=== PATIENT | male | born 1940 | race African-American/Black ===

== ENCOUNTER 2023-07-27 19:02 | Inpatient (IN) | payer MEDICARE, SELFPAY ==
--- NOTE | ~2023-07-27 | CT_ITS ---
EXAMINATION: CT HEAD WITHOUT CONTRAST CLINICAL INFORMATION: Visual hallucinations COMPARISON: None available. TECHNIQUE: Contiguous axial imaging was performed from the skull base to vertex without intravenous administration of contrast. This CT examination was performed using dose optimization techniques as appropriate, variously including the following: *Automated exposure control *Adjustment of mA and/or kV according to patient size (this includes techniques or standardized protocols for targeted exams where dose is matched to indication/reason for exam; i.e. extremities or head) *Use of iterative reconstruction technique DLP: 729 mGy-cm FINDINGS: There is no acute intra-axial, extra-axial bleed, masses or midline shift. There is no acute infarction in evolution. There is no edema. The hebert to white matter differentiation is maintained normal. The lateral ventricles are symmetrical but moderately enlarged. Mild periventricular hypodensity seen in both cerebral hemispheres. Bone windows reveal no calvarial abnormality. There is no scalp soft tissue abnormality. There is mild mucoperiosteal thickening right frontal sinus. Rest of the paranasal sinuses are well-aerated. CT/CT head/brain wo IV con IMPRESSION: No acute intracranial process seen.
[2023-07-27 19:33] VITALS: BP 136/62; BP 145/75; PULSE 106; PULSE 97; RESP 17; TEMP 36.8; O2SAT 98; BMI 26.3
--- NOTE | 2023-07-27 21:35 | ED.GENADULT ---
HPI - General Adult General Chief complaint: Altered Mental Status Stated complaint: CC of anxiety and disturbances. No SI/HI Time Seen by Provider: 07/27/23 20:47 Source: patient and EMS Mode of arrival: EMS History of Present Illness HPI narrative: This is an 83-year-old male who arrives via EMS, pleasant and states that he is here because he saw a man in his home who was in a cloud of what appeared to be snow like white pieces and he kept asking him who he was but did not get an answer. Patient became scared and called 911 to have the police come, patient the triage note described it as flying months. Patient states that when the man left this cloud left with him. Patient states that when the police arrived they informed him that the house was empty and no one was there. Patient states he does not understand because he clearly saw the man. He states that this happened 1 time previously. Related Data Allergies Allergy/AdvReac Type Severity Reaction Status Date / Time No Known Allergies Allergy Verified 07/27/23 21:14 Review of Systems Review of Systems: Pertinent positives and negatives as stated in HPI PMFSH Past Medical History Source: nursing notes reviewed Onset Date is defined in the Problem List Problems that require an onset date and time if occurred within 24 hrs of arrival to the ED Aortic Dissection and Rupture; Neurologic impairment; Cardiopulmonary Arrest; Endotracheal Intubation; Insertion or Replacement of Mechanical Circulatory Assist Device Social History Social History Unable to assess alcohol history related to: Unknown Smoked in Last 30 Days: No Advance Directives: No Advance Directives Information Provided: No Physical Exam ED Vital Signs: Vital Signs - 24 hr 07/27/23 19:33 Temperature 98.3 F Pulse Rate 97 Respiratory Rate 17 Blood Pressure 145/75 H Pulse Oximetry 98 Oxygen Delivery Method Room Air BMI result Body Mass Index 26.3 VITAL SIGNS: Reviewed. GENERAL: Well developed, well nourished, in no acute distress. HEAD: Normocephalic/atraumatic EYES: PERRLA, EOMI EARS: Ext canals without abnormality NOSE: Nares patent bilateral OROPHARYNX: no oral lesions noted, posterior pharynx clear NECK: Supple, no adenopathy LUNGS: Normal breath sounds. No adventitious sounds or accessory muscle use. SpO2< 98 > CARDIOVASCULAR: Regular rate and rhythm without noted murmurs, no JVD or lower extremity edema. ABDOMEN: Soft, non-tender, non-distended with bowel sounds. MUSCULOSKELETAL: No tenderness, deformities, or effusions noted on gross inspection. EXTREMITIES: No cyanosis, clubbing or edema. SKIN: Inspection of the skin reveals no rashes NEUROLOGIC: Alert and oriented x 3. Strength and sensation to light touch were grossly intact x 4, no facial asymmetry, no pronator drift, cranial nerves 2-12 are grossly intact. Medical Decision Making Medical Decision Making [facility] Narrative: 83-year-old male with history and clinical presentation, DDX: Metabolic, toxicology, infection, intracranial abnormality for hallucination. I reviewed all investigations and patient does have a leukopenia with a normocytic anemia and no history or clinical findings to suggest acute bleeding, no thrombocytopenia. Chemistries indices do not demonstrate an BECKIE or electrolyte/liver enzyme derangements. Urinalysis negative for UTI or hematuria. Urine drug screen negative and viral testing is negative. CT of the head without intracranial hemorrhage or mass effect and otherwise my interpretation is in agreement with radiology's impression. Patient had a few episodes where he appears to be confused and thinks that the restaurant is through the double doors where the behavioral pod is at. 0005: Patient began picking up the yellow signs and attempting to strike others, became very confused and required medications sedation. The niece has been informed regarding patient's current status and states that she will be able to arrive in the emergency room in the morning. Otherwise, patient is cleared for further evaluation by Psychiatry and case management. Patient placed in physician observation because the patient needed more time for evaluation by case management and Psychiatry. At the time observation was started the patient's vital signs were stable, patient is alert and oriented but slightly agitated, neuro: Nonfocal, CV RRR, lungs clear. Differential Diagnosis Differential Diagnoses: The differential diagnosis associated with the presentation includes Please see the discussion above Admission/Observation Consideration of admission/observation: Escalation of care including admission/observation considered Please see the discussion above Consult Healthcare Provider Management of the patient was discussed with: Ad Operations Intern Please see the discussion above Lab Data [facility] Lab Attestation statement: I reviewed the patient's lab results. Please see the discussion above 07/27/23 22:07 07/27/23 22:07 Labs: Lab Results 07/27/23 07/27/23 Range/Units 22:07 22:09 WBC 2.7 L (4.8-10.8) X10*3/uL RBC 3.68 L (4.60-5.80) X10*6/uL Hgb 10.6 L (14.0-18.0) g/dl Hct 32.6 L (42.0-52.0) % MCV 88.6 (80.0-98.0) fL MCH 28.8 (27.0-33.0) pg MCHC 32.5 (31.0-36.0) g/dl RDW 12.5 (11.0-16.0) % Plt Count 196 (160-400) X10*3/uL MPV 8.6 L (9.4-12.4) fL Immature Gran % (Auto) 0.4 (0.0-0.4) % Neut % (Auto) 48.6 (45-73) % Lymph % (Auto) 27.9 (20-40) % [place] % (Auto) 21.3 H (2-11) % Eos % (Auto) 1.8 (0-4) % Baso % (Auto) 0.0 (0-2) % Lymph # (Auto) 0.8 L (1.2-4.9) X10*3/uL [place] # (Auto) 0.6 (0.1-1.2) X10*3/uL Eos # (Auto) 0.1 (0.0-0.4) X10*3/uL Baso # (Auto) 0.0 (0.0-0.2) X10*3/uL Abs Immat Gran (auto) 0.01 (0.00-0.03) X10*3/uL Absolute Neuts (auto) 1.3 L (2.0-8.3) x10*3/uL Absolute Nucleated RBC 0.000 (0.0-0.012) X10*3/uL Nucleated RBC % (auto) 0.0 (0.0-0.2) /100WBC Smear Tech's Comments VERIFIED Sodium 140 (135-145) mmol/L Potassium 3.9 (3.3-5.1) mmol/L Chloride 108 (96-108) mmol/L Carbon Dioxide 25 (22-29) mmol/L Anion Gap 11 L (12-20) BUN 15 (9-16) mg/dL Creatinine 1.20 (0.5-1.4) mg/dL Estim Creat Clear Calc 46.7 Estimated GFR 58 Random Glucose 120 H (60-115) mg/dL Calcium 9.3 (8.4-10.2) mg/dL Total Bilirubin 0.4 (0.0-1.0) mg/dL AST 22 (5-37) U/L ALT 10 (0-40) U/L Alkaline Phosphatase 81 (39-117) U/L Total Protein 8.3 H (6.5-8.0) g/dL Albumin 3.9 (3.5-5.0) g/dL Urine Color Dark Yellow Urine Appearance Clear Urine pH 5.5 (5.0-9.0) Ur Specific [place] >= 1.030 H (1.005-1.025) Urine Protein 30 (1+) H (Neg-Trace) mg/dL Urine Glucose (UA) Negative (Negative) mg/dL Urine Ketones Trace (Negative) mg/dL Urine Blood Negative (Negative) Urine Nitrite Negative (Negative) Ur Leukocyte Esterase Negative (Negative) Urine RBC 0-2 (0-2) /HPF Urine WBC 0-5 (0-5) /HPF Ur Squamous Epith Cells 0-2 (0-2) /HPF Urine Bacteria None Seen (None Seen) Hyaline Casts 3-5 (0-2) /LPF Urine Opiates Screen Not Detected (Not Detect) Urine Fentanyl Screen Not Detected (Not Detect) Ur Barbiturates Screen Not Detected (Not Detect) Ur Phencyclidine Scrn Not Detected (Not Detect) Ur Amphetamines Screen Not Detected (Not Detect) U Benzodiazepines Scrn Not Detected (Not Detect) Urine Cocaine Screen Not Detected (Not Detect) U Marijuana (THC) Screen Not Detected (Not Detect) COVID-19 (SUNITA) Negative (Negative) COVID-19 Clin Com See Note Influenza Type A (FLAQUITA) Negative (Negative) Influenza Type B (FLAQUITA) Negative (Negative) Influenza A & B Note See Note Radiology Impression Discussion of test interpretation with radiology: I have reviewed the radiologist's reading. Radiologist Impression: Please see the discussion above Critical Care Time Critical Care Time Critical Care Time: Yes Total Critical Care Time: 60 Attestation: I personally attest to this time spent taking care of the patient. Discharge Plan Discharge Clinical Impression: Hallucination, visual, Altered behavior Patient Disposition: Still a Patient
[2023-07-27 22:28] LABS: Eosinophils Absolute Auto 0.1 X10*3/uL (0.0-0.4); Eosinophils Percent Auto 1.8 % (0-4); Hematocrit 32.6 % (42.0-52.0); Hemoglobin 10.6 g/dl (14.0-18.0); Imm Gran Abs Auto 0.01 X10*3/uL (0.00-0.03); Imm Gran Pct Auto 0.4 % (0.0-0.4); Lymphocytes Absolute Auto 0.8 X10*3/uL (1.2-4.9); Lymphocytes Percent Auto 27.9 % (20-40); MANUAL DIFF FLAG SCAN; Mean Corpuscular HGB Conc 32.5 g/dl (31.0-36.0); Mean Corpuscular Hemoglobin 28.8 pg (27.0-33.0); Mean Corpuscular Volume 88.6 fL (80.0-98.0); Mean Platelet Volume 8.6 fL (9.4-12.4); Monocytes Absolute Auto 0.6 X10*3/uL (0.1-1.2); Monocytes Percent Auto 21.3 % (2-11); Neutrophils Absolute Auto 1.3 x10*3/uL (2.0-8.3); Neutrophils Percent Auto 48.6 % (45-73); Platelet Count 196 X10*3/uL (160-400); Red Blood Count 3.68 X10*6/uL (4.60-5.80); Red Cell Distribution Width 12.5 % (11.0-16.0); SCAN SMEAR FLAG 1; White Blood Count 2.7 X10*3/uL (4.8-10.8)
[2023-07-27 22:29] LABS: Appearance Urine Clear; Color Urine Dark Yellow; Glucose Urine UA Negative (Negative); Leukocyte Esterase Urine Negative (Negative); Nitrite Urine Negative (Negative); PH 5.5 (5.0-9.0); Specific Gravity - Urine >= 1.030 (1.005-1.025); UMIC TRIGGER UACC YES; Urine Blood Negative (Negative); Urine Ketones Trace mg/dL (Negative); Urine Protein 30 (1+) mg/dL (Neg-Trace)
[2023-07-27 22:34] LABS: Bacteria Urine None Seen (None Seen); RBC Urine 0-2 /HPF (0-2); Squamous Epithelial Cell Urine 0-2 /HPF (0-2); WBC Urine 0-5 /HPF (0-5)
[2023-07-27 22:36] LABS: Amphetamine Screen Urine Not Detected (Not Detect); Barbiturates, Urine Not Detected (Not Detect); Benzodiazepines Screen Urine Not Detected (Not Detect); Cannabinoid Screen Urine Not Detected (Not Detect); Cocaine Screen Urine Not Detected (Not Detect); Fentanyl, urine Not Detected (Not Detect); Opiate Screen Urine Not Detected (Not Detect); Phencyclidine Screen Urine Not Detected (Not Detect)
[2023-07-27 22:42] LABS: IDNOW Serial# 08D9AD1C; Influenza A Negative (Negative); Influenza B2 Negative (Negative)
[2023-07-27 22:43] LABS: Alanine Aminotransferase 10 U/L (0-40); Albumin Level 3.9 g/dL (3.5-5.0); Alkaline Phosphatase 81 U/L (39-117); Anion Gap 11 (12-20); Aspartate Amino Transferase 22 U/L (5-37); Bilirubin Total 0.4 mg/dL (0.0-1.0); Blood Urea Nitrogen 15 mg/dL (9-16); COVID-19 Test Negative (Negative); Calcium 9.3 mg/dL (8.4-10.2); Carbon Dioxide 25 mmol/L (22-29); Chloride 108 mmol/L (96-108); Creatinine Clr Calc Pharmacy 46.7; Estimated Glomerular Filt Rate 58; Glucose Random 120 mg/dL (60-115); IDNOW Serial# 152EDE1D; Potassium 3.9 mmol/L (3.3-5.1); Sodium 140 mmol/L (135-145); Total Protein 8.3 g/dL (6.5-8.0)
[2023-07-27 23:08] LABS: SLIDE REVIEW VERIFIED
--- NOTE | 2023-07-27 23:24 | PC.NURSE ---
Cindy moura will send son to nut picker pt and take him back to her house. made aware.
--- NOTE | 2023-07-27 23:37 | PC.NURSE ---
Cindy called reporting son will not be able to come and fruit or nut picker pt tonight. Cindy reports will be able to come in the morning. Pt is currently confused, restless, pacing and refusing to return to the bedside. made aware.
[2023-07-28] VITALS (17 sets, daily range): BP systolic 116–208; BP diastolic 60–85; PULSE 64–127; RESP 12–19; TEMP 36.2–36.9; O2SAT 94–99
--- NOTE | 2023-07-28 | ECG_ITS ---
Test Reason : QTC PROLONGATION Blood Pressure : / mmHG Vent. Rate : 106 BPM Atrial Rate : 106 BPM P-R Int : 166 ms QRS Dur : 102 ms QT Int : 370 ms P-R-T Axes : 027 011 -04 degrees QTc Int : 491 ms Poor data quality Sinus tachycardia with Premature atrial complexes with Aberrant conduction Incomplete right bundle branch block ST & T wave abnormality, consider inferior ischemia ST & T wave abnormality, consider anterior ischemia Abnormal ECG When compared with ECG of 07-APR-2007 06:00, Aberrant conduction is now Present Incomplete right bundle branch block is now Present Referred By: Eva Prasad Electronically Signed By:OSIEL SHEA MD
--- NOTE | 2023-07-28 | PC.NURSE ---
Pt is confused, agitated, aggressive and combative. Attempting to punch and kick staff. Grabbed a wet floor sign and swings it around to hit staff. Pt is unredirectable and uncooperrative. Medicated as verbally ordered by Dr. Linares for pt and staff safety. Security at bedside.
[2023-07-28] MEDS: LORazepam 2 MG/ML VIAL IM ×2 (00:05→19:52)
[2023-07-28] MEDS: Haloperidol Lactate 5 MG/ML VIAL IM ×2 (00:05→19:52)
[2023-07-28] MEDS: diphenhydrAMINE HCL 50 MG/ML VIAL IM (00:05)
[2023-07-28 01:03] LABS: Ethanol < 10 mg/dL
--- NOTE | 2023-07-28 01:18 | PC.NURSE ---
Pt sleeping at the bedside. No apparent distress noted. VSS. Breaths are even regular and unlabored with equal chest rises. 1:1 sitter at bedside. Monitoring is ongoing.
--- NOTE | 2023-07-28 07:10 | PC.NURSE ---
patient resting quietly in bed, respirations equal and unlabored. patient shows no signs of distress.
[2023-07-28 08:33] LABS: Syphilis Screen Nonreactive (Nonreactive)
--- NOTE | 2023-07-28 10:45 | MHC.EDTECH ---
Patient just arrived to ED overflow via transport. Walked and laid down into bed. Asked patient if he needed anything, declined. Vital signs documented.
--- NOTE | 2023-07-28 10:50 | PC.NURSE ---
PT TRANSFERRED TO OVERFLOW BED 2
--- NOTE | 2023-07-28 11:13 | PC.NURSE ---
RUPA (PSYCH, COLLECTIVE BARGAINING SPECIALIST) AT BEDSIDE. PT AWARE OF PLAN OF CARE.
--- NOTE | 2023-07-28 11:15 | PC.NURSE ---
PT IS A/O X 3 ON ARRIVAL TO OVERFLOW BED 2.
--- NOTE | 2023-07-28 11:33 | PC.NURSE ---
PT VSS 200/84-89 (L) AND REPEATED ON (R) 208/85-86. MLP (RAMON) AWARE. PT APPEARS TO BE ASYMPTOMATIC. NO NEW ORDERS AT THIS TIME. LIYAH AT BEDSIDE AT IS LEAVING NOW. LG ([phone]) WALI. CAMERON ([phone]) DANO
[2023-07-28] MEDS: amLODIPine Besylate 5 MG TABLET PO (12:07)
[2023-07-28] MEDS: lisinopriL 40 MG TABLET PO (12:07)
--- NOTE | 2023-07-28 12:10 | PC.NURSE ---
pt medicated per mar for elevated BP. pt a&o x4, sitting at bedside eating lunch. rr even/unlabored. call weir within reach. sitter camera at bedside. bed alarm on. plan of care ongoing.
--- NOTE | 2023-07-28 12:12 | MHC.CM.ED ---
Received case management consult overnight. Patient lives alone, has multiple nieces and great nieces that help with his care. Per Eva, foxer, hoping to obtain an ACL to evaluate for ability for patient to remain at home alone. Per patient's niece, anticipate patient will say with one of his family members. HCP completed, signed and witnessed. Original given to patient. Copy placed in the chart. Anticipate patient will d/c home with family. However, patient's SBP is now 200. Linda CHRISTINE aware. Continue to monitor for d/c needs.
--- NOTE | 2023-07-28 12:59 | MHC.EDTECH ---
Just washed patient up in the bathroom and changed his kirsetn from SI/HI to the regular kirsten. Patient did use the bathroom. Patient ate about 50% of his lunch.
--- NOTE | 2023-07-28 13:37 | PC.NURSE ---
CARE TEAM AT BEDSIDE.
--- NOTE | 2023-07-28 14:06 | PC.NURSE ---
PT SEEN BY CARE TEAM, IS AWARE OF PLAN OF CARE.
[2023-07-28] MEDS: Ketotifen Fumarate 0.025% Oph 5 ML DRPBTL 1 DROP EYE-BOTH (14:07)
[2023-07-28] MEDS: Ipratropium Bromide Nas 0.03 % 30 ML SPRAY 2 SPRAY NOSTRIL-B (14:07)
--- NOTE | 2023-07-28 14:26 | PC.NURSE ---
PT DENIES ANY PAIN/DISC. CAMERA/BED ALARM IN USE. CALL CARLOS WITHIN REACH. WILL CONTINUE TO MONITOR.
--- NOTE | 2023-07-28 15:03 | PHA.MEDREC ---
Pharmacy Consult ? Medication Reconciliation Pharmacy has reviewed the medication reconciliation completed by Lora. Daisy Mei, PharmD
--- NOTE | 2023-07-28 16:37 | MHC.EDTECH ---
checked on pt he was sleeping
--- NOTE | 2023-07-28 17:01 | PC.NURSE ---
pt woken up from nap for dinner. t/w set up tray for pt. pt eating independently.
--- NOTE | 2023-07-28 17:19 | MHC.EDTECH ---
pt ate about 50% and said he was all set
--- NOTE | 2023-07-28 17:31 | PM.PSYCN ---
History of Present Illness Date of Service: 07/28/2023 Chief Complaint: CC of anxiety and disturbances. No SI/HI Reason for Consult: VH Discussed with referring provider: Yes Sources of Information: patient interviewed, chart reviewed and crisis/core team assessment reviewed HPI Narrative: Mr. Zuniga is a 83 year-old male who called 911 reporting seeing a man in his living room who he believed was Trump and had some white wings. He reports when police came he was surprise that they couldn't see this man. He also reports that man banished under the couch and then he was not able to see it either. He reports he has not seen this man here in the hospital. He does report that it is not the first time, that he thinks he saw the man one other time this week. He also reports that people are telling him he is in the wrong place and he is suspicious as to whether someone is after him or not. He denies SI/HI. He lives alone. 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 Niece reports that he used cannabis in the past but his utox is negative. Diagnostics Vital Signs (24Hr): Vital Signs - 24 hr 07/27/23 19:33 07/28/23 00:20 07/28/23 00:35 Temperature 98.3 F Pulse Rate 97 127 H 96 Respiratory Rate 17 16 12 Blood Pressure 145/75 H 164/71 H Pulse Oximetry 98 97 Oxygen Delivery Method Room Air Room Air 07/28/23 00:50 07/28/23 01:05 07/28/23 01:20 Temperature Pulse Rate 84 82 80 Respiratory Rate 14 16 18 Blood Pressure 147/77 H 143/70 H 147/71 H Pulse Oximetry 99 99 99 Oxygen Delivery Method Room Air Room Air Room Air 07/28/23 01:35 07/28/23 01:50 07/28/23 03:11 Temperature Pulse Rate 72 67 66 Respiratory Rate 16 16 15 Blood Pressure 138/74 152/72 H 157/77 H Pulse Oximetry 99 99 99 Oxygen Delivery Method Room Air Room Air Room Air 07/28/23 03:54 07/28/23 05:05 07/28/23 06:15 Temperature Pulse Rate 64 74 65 Respiratory Rate 14 14 16 Blood Pressure 153/72 H 153/69 H Pulse Oximetry 96 96 95 Oxygen Delivery Method Room Air Room Air 07/28/23 08:21 07/28/23 11:03 07/28/23 11:10 Temperature 98.3 F 98.4 F 98.4 F Pulse Rate 76 89 86 Respiratory Rate 19 18 18 Blood Pressure 190/80 H 200/84 H 208/85 H Pulse Oximetry 99 99 99 Oxygen Delivery Method Room Air Room Air Room Air 07/28/23 12:00 07/28/23 13:57 Temperature 97.7 F 98.1 F Pulse Rate 100 86 Respiratory Rate 18 18 Blood Pressure 116/79 165/84 H Pulse Oximetry 99 97 Oxygen Delivery Method Room Air Room Air BMI result Body Mass Index 26.3 Labs 07/27/23 22:07 07/27/23 22:07 Labs: Laboratory Results - last 48 hr 07/27/23 07/27/23 07/28/23 22:07 22:09 04:00 WBC 2.7 L RBC 3.68 L Hgb 10.6 L Hct 32.6 L MCV 88.6 MCH 28.8 MCHC 32.5 RDW 12.5 Plt Count 196 MPV 8.6 L Immature Gran % (Auto) 0.4 Neut % (Auto) 48.6 Lymph % (Auto) 27.9 [place] % (Auto) 21.3 H Eos % (Auto) 1.8 Baso % (Auto) 0.0 Lymph # (Auto) 0.8 L [place] # (Auto) 0.6 Eos # (Auto) 0.1 Baso # (Auto) 0.0 Abs Immat Gran (auto) 0.01 Absolute Neuts (auto) 1.3 L Absolute Nucleated RBC 0.000 Nucleated RBC % (auto) 0.0 Smear Tech's Comments VERIFIED Sodium 140 Potassium 3.9 Chloride 108 Carbon Dioxide 25 Anion Gap 11 L BUN 15 Creatinine 1.20 Estim Creat Clear Calc 46.7 Estimated GFR 58 Random Glucose 120 H Calcium 9.3 Total Bilirubin 0.4 AST 22 ALT 10 Alkaline Phosphatase 81 Total Protein 8.3 H Albumin 3.9 Urine Color Dark Yellow Urine Appearance Clear Urine pH 5.5 Ur Specific [place] >= 1.030 H Urine Protein 30 (1+) H Urine Glucose (UA) Negative Urine Ketones Trace Urine Blood Negative Urine Nitrite Negative Ur Leukocyte Esterase Negative Urine RBC 0-2 Urine WBC 0-5 Ur Squamous Epith Cells 0-2 Urine Bacteria None Seen Hyaline Casts 3-5 Urine Opiates Screen Not Detected Urine Fentanyl Screen Not Detected Ur Barbiturates Screen Not Detected Ur Phencyclidine Scrn Not Detected Ur Amphetamines Screen Not Detected U Benzodiazepines Scrn Not Detected Urine Cocaine Screen Not Detected U Marijuana (THC) Screen Not Detected Ethyl Alcohol < 10 T.pallidum Ab (EIA) Nonreactive COVID-19 (SUNITA) Negative COVID-19 Clin Com See Note Influenza Type A (FLAQUITA) Negative Influenza Type B (FLAQUITA) Negative Influenza A & B Note See Note Imaging Radiology Impressions: ITS Impressions Head CT 07/27/23 21:51 IMPRESSION: No acute intracranial process seen. Mental Status Exam Mental Status Exam Narrative: Appearance: wearing hospital gown, fair hygiene, in NAD Behavior: cooperative Psychomotor: no agitation or retardation noted Speech: mostly clear, mumbles at times, regular rhythm/volume, spontaneous TP: mostly linear TC: surprise that police did not see man standing in his living room Mood: good Affect: brightens up at times SI: denies HI: denies VH/AH: denies at this time Delusions: worried that someone may be after him or that there was a fire at his building Insight/judgment: some insight that maybe man was not there but also wondering if someone is after him Memory/cog: alert, oriented to place, month, year and situation Medications Medications Current Medications Amlodipine Besylate (Amlodipine Besylate 5 Mg Tablet) 5 mg PO DAILY [facility]; Protocol Last Admin: 07/28/23 12:07 Dose: 5 mg Ipratropium [place] (Ipratropium [place] Patent Miguel A 0.03 % 30 Ml Leonidas) 2 spray NOSTRIL-B BID [facility] Last Admin: 07/28/23 14:07 Dose: 2 spray Ketotifen Fumarate (Ketotifen Fumarate 0.025% Oph 5 Ml Drpbtl) 1 drop EYE-BOTH BID [facility] Last Admin: 07/28/23 14:07 Dose: 1 drop Lisinopril (Lisinopril 40 Mg Tablet) 40 mg PO DAILY [facility]; Protocol Last Admin: 07/28/23 12:07 Dose: 40 mg Allergies Allergies Allergy/AdvReac Type Severity Reaction Status Date / Time No Known Allergies Allergy Verified 07/27/23 21:14 Assessment & Plan Assessment & Plan (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 Allen is a 83 year-old male who called police reporting man was in his living room. He was brought to hospital as there was no one there. He is not reporting VH. He does present with some suspiciousness. No prior psych hx per family. No hx of hallucinations or delusions. We discussed work up for dementia as it may be that hallucinations are related to dementing process. Pt does not appear delirious- his attention is fairly intact and orientation including to situation are fairly intact aside from some suspiciousness towards staff here in the hospital. He lives alone. We discussed considering admission to tree unit to further clarify dx, assess memory/cog level of functioning along with pattern of cognitive decline. Head CT does show atrophy and microvascular changes. PLAN 1. Geriatric inpatient level of care 2. can use low dose risperidone 0.5mg po BID. Total time managing care of this patient today ____ minutes.
--- NOTE | 2023-07-28 17:32 | MHC.EDTECH ---
pt used the bathroom and urinated
--- NOTE | 2023-07-28 18:35 | PC.NURSE ---
pt attempted to get out of bed. bed alarm and sitter camera went off. pt stated to YARD INSPECTOR that he wanted to look out the window . pt appears to be confused. ? ing. pt was directed back to bed. bed alarm set.
--- NOTE | 2023-07-28 19:21 | PC.NURSE ---
pt attempting to get out of bed. pt is not easily redirectable, becoming more agitated and aggressive. retail chain store area supervisor called for sitter, no luck. chargemaster specialist sending over float tech to sit with patient. GÓMEZ Lind and CRIS Joaquin at pt bedside. pt is yelling for Help!
--- NOTE | 2023-07-28 19:46 | PC.NURSE ---
security called to bedside by camera room. 1:1 patient sitter at bedside and bed alarm on. pt medicated per mar by GÓMEZ Lind. pt intermittently will scream for help calling out for the police. pt thinks he's been abducted, stating that staff here is all fake and hurting him. pt now singing very loudly.
--- NOTE | 2023-07-28 19:52 | PC.NURSE ---
Patient medicated per MAR for restlessness, agitation, and aggressive behavior towards staff.
--- NOTE | 2023-07-28 22:00 | PC.NURSE ---
Patient is calm, resting in bed with eyes closed, respirations even unlabored, 1:1 sitter at bedside, bed alarm engaged, camera monitor in place.
[2023-07-29] VITALS (9 sets, daily range): BP systolic 115–185; BP diastolic 65–93; PULSE 16–91; RESP 16–20; TEMP 36.4–36.9; O2SAT 97–99
--- NOTE | 2023-07-29 03:44 | PC.NURSE ---
Assumed care , patient attempting to jump OOB . 1:1 sitter now at bedside for safety. Patient resting quietly at present.
[2023-07-29] MEDS: lisinopriL 40 MG TABLET PO (08:07)
[2023-07-29] MEDS: Ipratropium Bromide Nas 0.03 % 30 ML SPRAY 2 SPRAY NOSTRIL-B (08:10)
[2023-07-29] MEDS: Ketotifen Fumarate 0.025% Oph 5 ML DRPBTL 1 DROP EYE-BOTH (08:10)
[2023-07-29] MEDS: amLODIPine Besylate 5 MG TABLET PO (08:16)
--- NOTE | 2023-07-29 10:15 | MHC.EDTECH ---
Offered to assist PT to take a shower, he declined.
--- NOTE | 2023-07-29 11:20 | MHC.EDTECH ---
Assisted patient to the recliner chair. Sitting with sitter. Having conversations. Will keep monitering.
--- NOTE | 2023-07-29 13:42 | MHC.CARE ---
RAD Team conducted [place] bed[place], unfortunately no beds available. Faxed referral to [facility] waitlist. RAD Team will continue bedsearch tomorrow (07/30) if deemed appropriate
--- NOTE | 2023-07-29 15:52 | MHC.EDTECH ---
PT has visitor present. Talking on the phone with his niece.
[2023-07-29] MEDS: Acetaminophen 325 MG TABLET 975 MG PO (16:20)
--- NOTE | 2023-07-29 17:30 | PC.NURSE ---
Assumed care of pt at 1500. Pt is A&Ox3 and able to make needs known. Pt is on room air, LS clear. No edema noted. Skin intact. Abd obese, +BS all 4 quads. Pt is able to ambulate to bathroom with 1A. Pt is endorsing pain in left hip that he states in ongoing, Tylenol given with good effect. Pt had visitor at bedside earlier states was his sister. 1:1 sitter present at bedside all safety measures in place.
--- NOTE | 2023-07-29 17:42 | MHC.EDTECH ---
PATIENT ATE A FEW CHIPS FOR DINNER AND REFUSED HIS DINNER .
[2023-07-29] MEDS: Haloperidol Lactate 5 MG/ML VIAL IM (18:08)
[2023-07-29] MEDS: LORazepam 2 MG/ML VIAL IM (18:08)
--- NOTE | 2023-07-29 18:14 | PC.NURSE ---
Addendum entered by Odette Nicholson RN 07/29/23 19:02: Moises Evans at bedside to assess pt within 1 hour. Addendum entered by Odette Nicholson RN 07/29/23 18:50: Pt refuses vital sign checks. RR 20, rise and fall of chest noted, pt does not appear to be in any distress at this time. Original Note: At approximately 1800, pt became aggressive and agiated. Pt got out of bed and started pushing staff stating he was trying to get out of here. Pt was unsteady at this time, staff followed pt around nurses station. At this time security was called and PA messaged/called for IM medication. Pt began kicking the wall with his feet trying to break down the door . Security and staff were able to move pts bed over into [address] and safely transfer pt into bed. IM Ativan and IM Haldol given as ordered, pending results. Pt currently in bed, staff 1:1 and security at bedside at this time.
--- NOTE | 2023-07-30 02:16 | PC.NURSE ---
Patient sleeping at present time. Safety measures in place , call weir within reach. 1:1 sitter at bedside.
[2023-07-30 05:56] VITALS: BP 159/86; PULSE 71; RESP 18; TEMP 36.1; O2SAT 100
[2023-07-30] MEDS: lisinopriL 40 MG TABLET PO (08:22)
[2023-07-30] MEDS: Ketotifen Fumarate 0.025% Oph 5 ML DRPBTL 1 DROP EYE-BOTH (08:22)
[2023-07-30] MEDS: amLODIPine Besylate 5 MG TABLET PO ×2 (08:22)
[2023-07-30] MEDS: Ipratropium Bromide Nas 0.03 % 30 ML SPRAY 2 SPRAY NOSTRIL-B (08:22)
--- NOTE | 2023-07-30 09:23 | PC.NURSE ---
Assumed care at 0700. Pt A&Ox3. Respirations equal and unlabored. Med and meal compliant. C/o left hip pain, requesting to ambulate to stretch his leg. Pt ambulated throughout unit with staff assistance. Steady gait. Sitter in place for pt safety.
[2023-07-30 14:00] VITALS: BP 115/63; PULSE 103; RESP 18; TEMP 36.6; O2SAT 99
--- NOTE | 2023-07-30 15:23 | PC.NURSE ---
Patient is awake and alert. skin pwd, resp even and non labored, speaking in full, clear sentences. able to make needs known. 1 assist to bathroom at this time and back to bed w/ help of water quality technician.
--- NOTE | 2023-07-30 16:37 | MHC.CARE ---
RAD Team conducted a statewide tree bed search for this pt, No tree beds available, bed search will continue tomorrow (07/31) if deemed necessary
[2023-07-30] MEDS: Haloperidol Lactate 5 MG/ML VIAL IM (17:12)
[2023-07-30] MEDS: LORazepam 2 MG/ML VIAL IM (17:12)
--- NOTE | 2023-07-30 17:12 | PC.NURSE ---
Patient was laying on bed, leaning over and looking at staff at nurses station. This RN as well as clock repair technician attempted to assist patient with needs, offering help to the bathroom, asking about pain/hunger. Patient with disorganized thoughts asking this RN if she is a business office assistant and talking about the bus station, patient then getting up to walk around and appearing paranoid. This RN called Alberto MATUTE and new orders for PO meds obtained, security also called. Patient began attempting to leave the unit, getting agitated with staff when staff attempted to redirect patient, patient then made verbal threat to clock repair technician implying dont make me hurt you. Security arrived and patient walked into bathroom attempting to close door beding him, security was opening door and patient fell backward onto his buttocks and back, Patient did not hit head. Alberto MATUTE called again and made aware of the fall and new orders for haldol and ativan administered as ordered with security present.
--- NOTE | 2023-07-30 17:30 | PC.NURSE ---
Patient remains agitated and paranoid, attempting to leave the unit again, security called. Patient also refusing vitals post medication.
[2023-07-30 17:40] VITALS: BP 153/81; PULSE 110; RESP 18; O2SAT 98
--- NOTE | 2023-07-30 17:45 | PC.NURSE ---
Patient singing loudly causing other patient to start singing. continues getting up and attempting to leave, This RN and biomedical technician needing 2 assist to help redirect patient.
--- NOTE | 2023-07-30 17:54 | PC.NURSE ---
patient now has ED sitter at bedside. Patient is sitting on side of bed. skin pwd, resp even and non labored, he is talking with lead nuclear medicine technologist.
[2023-07-30 18:05] VITALS: BP 160/87; PULSE 108; RESP 20; TEMP 36.3
[2023-07-30 18:24] VITALS: BP 176/67; PULSE 100; RESP 20
[2023-07-30 19:32] VITALS: BP 142/73; PULSE 108; RESP 16; TEMP 36.3; O2SAT 97
--- NOTE | 2023-07-30 19:33 | MHC.EDTECH ---
THIS PCT ASSUMED CARE OF PT AT 1900 ,PATIENT VITALS TAKEN ,PT VERY AGITATED ,RESTLESS AND COMBATIVE ,ATTEMPTING TO CLIMB OUT OF BED ,1 :1 PATIENT OBSERVER AND DOUGLASE SANDRA LEE AT BED SIDE .
--- NOTE | 2023-07-30 21:45 | PC.NURSE ---
Assumed care of patient 19:15. Pt is seen this evening in ED overflow bed 2. Pt is A&Ox1 to self only. Mostly non-sensical responses to questions/inappropriate answers to assessment questions. Pt is confused, restless at times, and keeps stating, Call the police . Vitals showing HR mildly elevated though afebrile; staff unable to obtain po temp as pt is uncooperative with most care, including refusing all scheduled meds as well as newly ordered prn risperdal. Breathing is even and unlabored without distress. Covering provider Moises Evans notified of vitals and pt refusing meds; discussed pt is requiring profile grinder technician assisting this teletypewriter installer to sit near patient for 1:1 observation for pt safety due to ongoing agitation and paranoia, reported exit seeking and witnessed fall during the day today prior to assuming care. ED charge poster also made aware of this. profile grinder technician as well as in-room camera remain in place with plans for formal sitter coverage at 23:00 per charge poster. Order in place by provider. Pt self-repositions in bed. Will continue to monitor for remainder of teletypewriter installer's scheduled care.
--- NOTE | 2023-07-30 23:25 | PC.NURSE ---
Handoff report given to oncoming ED RN at 23:15.
--- NOTE | 2023-07-31 01:14 | PC.NURSE ---
Assumed care of patient at 2315. Pt confused and restless trying to get out of bed. Pt requiring frequent redirection but following direction. Pt is clean dry and declined bathroom needs as well as any food or water. provided patient with warm blanket and reassurance. Camera and sitter in place to ensure safety. Plan of care ongoing.
--- NOTE | 2023-07-31 05:44 | PC.NURSE ---
This RN remains at bedside with patient. Pt has continuously tried to get out of bed. Frequent repositioning and redirecting required. This RN able to play music and have conversation with patient to help keep calm and maintain safety. This has helped to ensure pt safety.
[2023-07-31 07:47] VITALS: BP 173/81; PULSE 89; RESP 18; O2SAT 99
[2023-07-31] MEDS: Ipratropium Bromide Nas 0.03 % 30 ML SPRAY 2 SPRAY NOSTRIL-B ×2 (08:22→23:19)
[2023-07-31] MEDS: Ketotifen Fumarate 0.025% Oph 5 ML DRPBTL 1 DROP EYE-BOTH ×2 (08:22→23:19)
[2023-07-31] MEDS: amLODIPine Besylate 5 MG TABLET PO (08:22)
[2023-07-31] MEDS: lisinopriL 40 MG TABLET PO (08:22)
--- NOTE | 2023-07-31 09:05 | MHC.CM.ED ---
Patient remains in ER overflow. Inpatient tree psych is recommended at this time. Case Management will defer consult at this time.
[2023-07-31] MEDS: HaloperidoL 5 MG TABLET PO (10:48)
[2023-07-31] MEDS: LORazepam 1 MG TABLET 2 MG PO (10:48)
--- NOTE | 2023-07-31 12:48 | MHC.CARE ---
Rad Team completed a statewide tree bed search (see bed search sheet for details). There are no tree beds available and no d/c's expected today. Bed search will resume tomorrow if needed.
[2023-07-31 15:03] VITALS: BP 179/66; PULSE 82; RESP 18; O2SAT 100
--- NOTE | 2023-07-31 18:17 | MHC.CARE ---
CARE Team attempted to see this pt for a mental status exam update, however pt was sleeping and not easily roused. Per overflow nurse, pt was given PO meds after he became upset and confused, reporting he had to go to work and becoming suspicious of the staff working with him. CARE Team will return tonight or tomorrow to re-attempt. Plan is for tree psych placement.
[2023-07-31 19:56] VITALS: BP 167/70; PULSE 72; RESP 14; TEMP 36.1; O2SAT 99
--- NOTE | 2023-07-31 21:48 | PC.NURSE ---
Pt sleeping at this time. Unable to medicate. Sitter remains at bedside. Plan of care ongoing.
--- NOTE | 2023-07-31 22:34 | PC.NURSE ---
This RN received a call from pts michaelle White requesting an update on the pt. This RN explained not info could be given at this time as health proxy and family member noted is Allegra tate. Cindy stated that she is the primary healthcare proxy and Allegra is the secondary. This RN explained to Cindy she will need to get the healthcare proxy paperwork situated or have pt ok for us to give her info on his behalf. Plan of care ongoing.
--- NOTE | 2023-07-31 22:58 | PC.NURSE ---
Pts healthcare proxy Allegra Jackson called to get an update on pt. This RN updated Allegra. Per Allegra, Michelle which is pts personal service representative in our system about 5 years ago so her and Cindy are the only family he has. Allegra to update healthcare proxy with pt to add Cindy. Allegra's phone number # [phone] Plan of care ongoing.
--- NOTE | 2023-07-31 23:21 | PC.NURSE ---
Pt awake. Pt assisted to restroom and back into bed. Pt medicated per mar. Plan of care ongoing.
[2023-08-01 06:00] VITALS: BP 151/86; PULSE 88; RESP 16; TEMP 36.6; O2SAT 98
--- NOTE | 2023-08-01 06:46 | PC.NURSE ---
Assumed care of patient at 23:30. Continues in ED overflow. Pt is A&Ox1 to self. Constant observer continues as ordered, in place for entirety of shift due to ongoing/intermittent agitation per report and chart/MAR review. Patient resting in bed quietly/sleeping for majority of shift. Breathing observed even and unlabored without distress on RA. Self repositions in bed. In-room camera and high falls preventative measures in placein place as well. AM VSS. Handoff report given to oncoming RN 06:45.
--- NOTE | 2023-08-01 08:30 | MHC.EDTECH ---
PT ATE 100% BREAKFAST 240CC FLUIDS
--- NOTE | 2023-08-01 10:27 | PC.NURSE ---
pt talking with [employer] team member. medicating with tylenol for back ache. resting, calm, coop. sitter at bedside. no distress noted. breathing well, talking well
--- NOTE | 2023-08-01 10:31 | PC.NURSE ---
up in chair sitting well.
[2023-08-01 10:35] VITALS: BP 138/70; PULSE 100; RESP 16; O2SAT 99
[2023-08-01] MEDS: Acetaminophen 325 MG TABLET 650 MG PO (10:37)
[2023-08-01] MEDS: amLODIPine Besylate 10 MG TABLET PO (10:37)
[2023-08-01] MEDS: lisinopriL 40 MG TABLET PO (10:37)
[2023-08-01] MEDS: Ketotifen Fumarate 0.025% Oph 5 ML DRPBTL 1 DROP EYE-BOTH ×2 (10:38→20:23)
[2023-08-01] MEDS: Ipratropium Bromide Nas 0.03 % 30 ML SPRAY 2 SPRAY NOSTRIL-B ×2 (10:38→20:23)
--- NOTE | 2023-08-01 12:14 | MHC.EDTECH ---
pt ate 75% of his lunch and 240cc of fluids.
--- NOTE | 2023-08-01 13:36 | PM.PSYCN ---
History of Present Illness Date of Service: 08/01/2023 Chief Complaint: CC of anxiety and disturbances. No SI/HI Sources of Information: patient interviewed, chart reviewed and crisis/core team assessment reviewed HPI Narrative: Garment Steamer attempted to see pt yesterday but pt had been medicated earlier and somnolent during the day. Pt presents as calm, pleasant. He continues to present oriented to place, month and situation. He does recall he was the one calling police to because he thought he had seen someone in his apartment. During the time he has been here in the ED, he has continued to present with episodes of paranoia and fluctuating episodes of confusion. He slept through the night. No VH/AH. No overt delusions. Review of Systems Review of Systems Pertinent positives and negatives as stated in HPI Diagnostics Vital Signs (24Hr): Vital Signs - 24 hr 07/31/23 15:03 07/31/23 19:56 08/01/23 06:00 Temperature 97.0 F 97.9 F Pulse Rate 82 72 88 Respiratory Rate 18 14 16 Blood Pressure 179/66 H 167/70 H 151/86 H Pulse Oximetry 100 99 98 Oxygen Delivery Method Room Air Room Air Room Air 08/01/23 10:35 Temperature Pulse Rate 100 Respiratory Rate 16 Blood Pressure 138/70 Pulse Oximetry 99 Oxygen Delivery Method Room Air BMI result Body Mass Index 26.3 Labs 07/27/23 22:07 07/27/23 22:07 Imaging Radiology Impressions: ITS Impressions Head CT 07/27/23 21:51 IMPRESSION: No acute intracranial process seen. Mental Status Exam Mental Status Exam Narrative: Appearance: wearing hospital gown, fair hygiene, in NAD Behavior: cooperative Psychomotor: no agitation or retardation noted Speech: mostly clear, mumbles at times, regular rhythm/volume, spontaneous TP: mostly linear TC: feeling better, hoping to go home soon Mood: good Affect: brightens up at times SI: denies HI: denies VH/AH: denies at this time Delusions: worried that someone may be after him or that there was a fire at his building Insight/judgment: some insight that maybe man was not there but also wondering if someone is after him Memory/cog: alert, oriented to place, month, year and situation Medications Medications Current Medications Amlodipine Besylate (Amlodipine Besylate 10 Mg Tablet) 10 mg PO DAILY [facility]; Protocol Last Admin: 08/01/23 10:37 Dose: 10 mg Ipratropium [place] (Ipratropium [place] Miguel A 0.03 % 30 Ml Barney) 2 spray NOSTRIL-B BID [facility] Last Admin: 08/01/23 10:38 Dose: 2 spray Ketotifen Fumarate (Ketotifen Fumarate 0.025% Oph 5 Ml Drpbtl) 1 drop EYE-BOTH BID [facility] Last Admin: 08/01/23 10:38 Dose: 1 drop Lisinopril (Lisinopril 40 Mg Tablet) 40 mg PO DAILY [facility]; Protocol Last Admin: 08/01/23 10:37 Dose: 40 mg Loratadine (Loratadine 10 Mg Tablet) 10 mg PO DAILY PRN PRN Reason: allergies Allergies Allergies Allergy/AdvReac Type Severity Reaction Status Date / Time No Known Allergies Allergy Verified 07/27/23 21:14 Assessment & Plan Assessment & Plan (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 Allen is a 83 year-old male who called police reporting man was in his living room. He was brought to hospital as there was no one there. He is not reporting VH. He does present with some suspiciousness. No prior psych hx per family. No hx of hallucinations or delusions. We discussed work up for dementia as it may be that hallucinations are related to dementing process. Pt does not appear delirious- his attention is fairly intact and orientation including to situation are fairly intact aside from some suspiciousness towards staff here in the hospital. He lives alone. We discussed considering admission to tree unit to further clarify dx, assess memory/cog level of functioning along with pattern of cognitive decline. Head CT does show atrophy and microvascular changes. PLAN 1. can discharge home. Pt does need to be assessed for memory/cognition, I do suspect underlying dementia but unclear extend of it. Total time managing care of this patient today ____ minutes.
[2023-08-01 14:00] VITALS: BP 161/84; PULSE 85; RESP 18; TEMP 36.8; O2SAT 97
--- NOTE | 2023-08-01 14:49 | MHC.CM.ED ---
Per Court from Care Team patient will be d/c'd to his home with the assistance of his family. [facility] contact provided to family by Court. T/W assisted arrange Josse LEDESMA for alf. Josse will contact Allegra to arrange start of care. Continue to monitor for d/c needs.
--- NOTE | 2023-08-01 16:00 | MHC.EDTECH ---
pt requested to go back to bed.
--- NOTE | 2023-08-01 16:00 | MHC.EDTECH ---
PT REQUESTED TO GO BACK TO BED.
--- NOTE | 2023-08-01 18:46 | MHC.EDTECH ---
pt did not eat dinner. Left a few items on his bedside table incase he wants to snack on something in the middle of the night. Left his juice as well. PT IS BACK INTO THE RECLINER CHAIR
[2023-08-02 01:49] VITALS: BP 166/89; PULSE 94; RESP 19; TEMP 37.1; O2SAT 98
[2023-08-02] MEDS: OLANZapine 10 MG TABLET PO (03:31)
[2023-08-02] MEDS: LORazepam 2 MG/ML VIAL IM (04:10)
[2023-08-02 06:39] VITALS: RESP 19
[2023-08-02 09:40] VITALS: BP 152/62; PULSE 75; RESP 18; TEMP 36.7; O2SAT 98
[2023-08-02] MEDS: lisinopriL 40 MG TABLET PO (09:48)
[2023-08-02] MEDS: amLODIPine Besylate 10 MG TABLET PO (09:48)
[2023-08-02] MEDS: Ipratropium Bromide Nas 0.03 % 30 ML SPRAY 2 SPRAY NOSTRIL-B ×2 (09:51→20:28)
--- NOTE | 2023-08-02 09:57 | MHC.CARE ---
Pt seen for mental status update by CARE team, dispo changed to IPLOC. RN reports patient was agitated last evening and continues with confusion and combativeness. CARE team spoke with niece/HCP and she is in agreement with IPLOC. CM notified.
--- NOTE | 2023-08-02 10:13 | MHC.CM.ED ---
Received notification from Josse LEDESMA that patient's primary insurance is [employer], not Medicare. Referral was broadcasted in [facility]. However, received notifcation that patient will be admitted to [facility]. Case management will close referral at this time.
[2023-08-02 11:14] LABS: COVID-19 Test Negative (Negative); IDNOW Serial# 9DB6401D
--- NOTE | 2023-08-02 12:27 | ECG_ITS ---
Test Reason : MED CHECK Blood Pressure : / mmHG Vent. Rate : 088 BPM Atrial Rate : 088 BPM P-R Int : 174 ms QRS Dur : 106 ms QT Int : 392 ms P-R-T Axes : 060 011 007 degrees QTc Int : 474 ms Sinus rhythm with Premature supraventricular complexes Incomplete right bundle branch block T wave abnormality, consider anterior ischemia Abnormal ECG When compared with ECG of 28-JUL-2023 10:14, No significant changes seen Referred By: Erica Ragland Electronically Signed By:NIURKA ARMENDARIZ
[2023-08-02 14:21] VITALS: BP 152/74; PULSE 81; RESP 17; TEMP 36.1; O2SAT 95
[2023-08-02 15:15] VITALS: BP 103/67; PULSE 93; RESP 17; TEMP 36.4; O2SAT 99
[2023-08-02] MEDS: Acetaminophen 325 MG TABLET 650 MG PO (16:58)
[2023-08-02 17:00] VITALS: BMI 22.3
--- NOTE | 2023-08-02 17:28 | PC.ADMIT ---
Patient arrived to the unit from [facility] overflow at 16:45 on a 12b. Patient was admitted from his home after calling 911 and reporting VH of moths flying around his house, along with a man in a cloud . He is pleasant and cooperative with the admission process, alert and oriented x2 and his vitals appear to be stable. Patient denies anxiety/depression and reports his sleep and appetite are well. Patient denies any current SI/HI/AVH but he occasionally appears internally preoccupied and his concentration is slightly impaired at times. Patient is independent and ambulates with 1 assist for occasional unsteadiness. A skin check was completed with another nurse with no open areas/wounds/bruises noted. Patient reports last BM was a couple days ago but denies any physical pain. He denies ideation, plan or intent to harm self or others. Patient is placed on 5 minute checks for safety.?
[2023-08-02 19:51] VITALS: BP 117/61; PULSE 91; RESP 16; TEMP 36.3; O2SAT 99
[2023-08-02] MEDS: Ketotifen Fumarate 0.025% Oph 5 ML DRPBTL 1 DROP EYE-BOTH (20:28)
[2023-08-03 07:00] VITALS: BMI 22.6
[2023-08-03 07:40] VITALS: BP 111/67; PULSE 91; RESP 18; TEMP 36.5; O2SAT 99
[2023-08-03] MEDS: lisinopriL 40 MG TABLET PO (08:35)
[2023-08-03] MEDS: amLODIPine Besylate 10 MG TABLET PO (08:35)
[2023-08-03 08:38] LABS: Estimated Average Glucose 88 mg/dL; Hemoglobin A1c % 4.7 % (<6.0)
[2023-08-03] MEDS: Ketotifen Fumarate 0.025% Oph 5 ML DRPBTL 1 DROP EYE-BOTH ×2 (08:38→20:13)
[2023-08-03 08:52] LABS: Alanine Aminotransferase 15 U/L (0-40); Alkaline Phosphatase 75 U/L (39-117); Anion Gap 14 (12-20); Aspartate Amino Transferase 35 U/L (5-37); Bilirubin Total 0.6 mg/dL (0.0-1.0); Blood Urea Nitrogen 20 mg/dL (9-16); Calcium 9.8 mg/dL (8.4-10.2); Carbon Dioxide 27 mmol/L (22-29); Chloride 105 mmol/L (96-108); Cholesterol 120 mg/dL (<200); Estimated Glomerular Filt Rate 40; Glucose Fasting 118 mg/dL (60-99); HDL Cholesterol 39 mg/dL (>40); LDL Cholesterol Calculated 69 mg/dL (<100); Potassium 3.5 mmol/L (3.3-5.1); Sodium 142 mmol/L (135-145); Total Protein 8.5 g/dL (6.5-8.0); Triglycerides 62 mg/dL (<150)
[2023-08-03] MEDS: Ipratropium Bromide Nas 0.03 % 30 ML SPRAY 2 SPRAY NOSTRIL-B ×2 (08:57→20:13)
[2023-08-03 09:07] LABS: Thyroid Stimulating Hormone 0.54 uIU/mL (0.32-4.0)
[2023-08-03 09:18] LABS: Folate 3.3 ng/mL (> or = 4.0); Vitamin B12 287 pg/mL (200-900)
--- NOTE | 2023-08-03 09:18 | HO.PSYADMNOT ---
HPI Date of Service: 08/04/23 Chief Complaint: Psychosis Sources of Information: patient interviewed, chart reviewed and crisis/core team assessment reviewed HPI Subjective Notes: Swann Warning (given and shows understanding) and Conditional Voluntary Narrative: Mr. Allen is a 83 year-old male with no prior psychiatric or dx of dementia who was brought via police after he called 911 reporting that there was a man in his living room that ayala vanished under the couch. In the ED, his utox was negative. CBC (neutropenia, w/normocytic anemia although MCV on higher end of normal, low folic acid and low B12) and CMP mostly unremarkable. UA without signs of infection. Head CT without acute pathology but does show atrophy and microvascular changes. In the ED, pt presented as fully oriented with some insight that what he saw was possible not there. He did have episodes of increase confusion and combative behaviors which required medication. On the unit, pt presents as calm and cooperative. He denies seeing things that others can't see or hear things that others can't hear. He expressed his anxiety about what he saw and hopes this doesn't happen again. He reports sleeping and eating well.He denies symptoms of depression or anxiety. He denies SI/HI. No overt delusional content is reported at this time. He continues to present fully oriented to place, situation, month and date. Medical Evaluation Reviewed: Yes PMFSH Family History: none Social History: No children. Not . 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 Substance History: sporadic use of cannabis Trauma History: denies Diagnostics Vital Signs (24Hr): Vital Signs - 24 hr 08/02/23 09:40 08/02/23 14:21 08/02/23 15:15 Temperature 98.1 F 97 F 97.6 F Pulse Rate 75 81 93 Respiratory Rate 18 17 17 Blood Pressure 152/62 H 152/74 H 103/67 Pulse Oximetry 98 95 99 Oxygen Delivery Method Room Air Room Air Room Air 08/02/23 19:51 Temperature 97.4 F Pulse Rate 91 Respiratory Rate 16 Blood Pressure 117/61 Pulse Oximetry 99 Oxygen Delivery Method Room Air BMI result Body Mass Index 22.3 Labs 07/27/23 22:07 08/03/23 07:55 Labs: Laboratory Results - last 48 hr 08/02/23 08/03/23 10:45 07:55 Sodium 142 Potassium 3.5 Chloride 105 Carbon Dioxide 27 Anion Gap 14 BUN 20 H Creatinine 1.65 H Estim Creat Clear Calc 33.0 Estimated GFR 40 Fasting Glucose 118 H Estimat Average Glucose 88 Hemoglobin A1c % 4.7 Calcium 9.8 Total Bilirubin 0.6 AST 35 ALT 15 Alkaline Phosphatase 75 Total Protein 8.5 H Albumin 4.0 Triglycerides 62 Cholesterol 120 LDL Cholesterol, Calc 69 HDL Cholesterol 39 L TSH 0.54 COVID-19 ([facility]) Negative COVID-19 Clin Com See Note Imaging Radiology Impressions: ITS Impressions Head CT 07/27/23 21:51 IMPRESSION: No acute intracranial process seen. Meds/Allergies Meds Home Medications Medication Instructions Recorded Confirmed Type acetaminophen 325 mg tablet 650 mg PO Q6H PRN pain 07/28/23 07/28/23 History amlodipine 5 mg tablet 5 mg PO DAILY 07/28/23 07/28/23 History cetirizine 10 mg tablet 10 mg PO DAILY PRN allergies 07/28/23 07/28/23 History ipratropium bromide 21 mcg (0.03 2 spray intranasal BID 07/28/23 07/28/23 History %) nasal spray ketotifen fumarate 0.025 % (0.035 1 drp ophthalmic (eye) BID 07/28/23 07/28/23 History %) eye drops (Eye Itch Relief) lisinopril 40 mg tablet 40 mg PO DAILY 07/28/23 07/28/23 History Allergies Allergies Allergy/AdvReac Type Severity Reaction Status Date / Time No Known Allergies Allergy Verified 07/27/23 21:14 Mental Status Exam Mental Status Exam Narrative: Appearance: wearing hospital gown, fair hygiene, in NAD Behavior: cooperative Psychomotor: no agitation or retardation noted Speech: mostly clear, mumbles at times, regular rhythm/volume, spontaneous TP: mostly linear TC: feeling better, hoping to go home soon Mood: good Affect: brightens up at times SI: denies HI: denies VH/AH: denies at this time Delusions:no overt Insight/judgment:fair x 2. Memory/cog: alert, oriented to place, month, year and situation. 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 Allen is a 83 year-old male with no prior psych or dementia dx who called 911 reporting seeing a man that disappear under his couch. His Utox was negative. In the ED, pt with some insight that what he saw was not there. He also presented oriented to situation, place, month, year. He did have periods of increase confusion and agitation. We discussed completing MOCA, ACL. Will given B12 and folic acid since in low. R/O neurocognitive disorder causing visual hallucination. PLAN 1. Admit to S1, CV, 15 minutes checks for safety 2. obtain collateral information 3. Aftercare planning Patient educated on: diagnosis and medication risk/benefits Reason for continued inpatient stay Substantial Risk for: inability to function Statement Statement: I have reviewed the history and physical and performed a pertinent examination on my patient. No changes have occurred unless specified. If the History and Physical was not performed prior to admission, the Hospitalist's service will be consulted for completing the admission physical. Time Spent With Patient Time: Total time managing care of this patient today ____ minutes.
[2023-08-03 10:51] LABS: COVID-19 Test Negative (Negative); IDNOW Serial# 58CA691E
[2023-08-03] MEDS: Acetaminophen 325 MG TABLET 650 MG PO (17:35)
[2023-08-03 20:50] VITALS: BP 164/73; PULSE 74; RESP 18; TEMP 36.1; O2SAT 100
[2023-08-04 06:00] VITALS: BP 153/73; PULSE 93; RESP 18; TEMP 36.3; O2SAT 100
[2023-08-04] MEDS: amLODIPine Besylate 10 MG TABLET PO (08:11)
[2023-08-04] MEDS: lisinopriL 40 MG TABLET PO (08:12)
[2023-08-04] MEDS: Ipratropium Bromide Nas 0.03 % 30 ML SPRAY 2 SPRAY NOSTRIL-B ×2 (08:12→21:05)
[2023-08-04] MEDS: Ketotifen Fumarate 0.025% Oph 5 ML DRPBTL 1 DROP EYE-BOTH ×2 (08:12→21:06)
--- NOTE | 2023-08-04 13:17 | HO.PSYCHPN ---
Subjective Subjective Date of Service: 08/04/23 Reason For Visit: Psychosis Subjective Notes: Conditional Voluntary Healthcare Proxy: Yes Interim History: Mr. Allen reports sleeping well. He reports he is doing well. He denies SI/HI. He denies VH/AH. He became a bit tearful when talking about man that he saw, stating that he hopes that not to happen. He does worried if this man was evil. but then stated I don't know he had white feathers. He is pleasant on approach. Able to ambulate with walker, no ataxic gait, no shuffling gait either. Some resting bilat tremor noted. Review of Systems Review of Systems Pertinent positives and negatives as stated in HPI Mental Status Exam Mental Status Exam Narrative: Appearance: wearing hospital gown, fair hygiene, in NAD Behavior: cooperative Psychomotor: no agitation or retardation noted Speech: mostly clear, mumbles at times, regular rhythm/volume, spontaneous TP: mostly linear TC: feeling better, hoping to go home soon Mood: good Affect: brightens up at times SI: denies HI: denies VH/AH: denies at this time Delusions:no overt Insight/judgment:fair x 2. Memory/cog: alert, oriented to place, month, year and situation. pending MOCA and ACL Diagnostics Vital Signs (24Hr): Vital Signs - 24 hr 08/03/23 20:50 08/04/23 06:00 Temperature 97 F 97.3 F Pulse Rate 74 93 Respiratory Rate 18 18 Blood Pressure 164/73 H 153/73 H Pulse Oximetry 100 100 Oxygen Delivery Method Room Air Room Air BMI result Body Mass Index 22.6 Labs 07/27/23 22:07 08/03/23 07:55 Labs: Laboratory Results - last 48 hr 08/03/23 08/03/23 07:55 10:17 Sodium 142 Potassium 3.5 Chloride 105 Carbon Dioxide 27 Anion Gap 14 BUN 20 H Creatinine 1.65 H Estim Creat Clear Calc 33.0 Estimated GFR 40 Fasting Glucose 118 H Estimat Average Glucose 88 Hemoglobin A1c % 4.7 Calcium 9.8 Total Bilirubin 0.6 AST 35 ALT 15 Alkaline Phosphatase 75 Total Protein 8.5 H Albumin 4.0 Triglycerides 62 Cholesterol 120 LDL Cholesterol, Calc 69 HDL Cholesterol 39 L Vitamin B12 287 Folate 3.3 L TSH 0.54 COVID-19 ([facility]) Negative COVID-19 Clin Com See Note Imaging Radiology Impressions: ITS Impressions Head CT 07/27/23 21:51 IMPRESSION: No acute intracranial process seen. Medications Medications Current Medications Acetaminophen (Acetaminophen 325 Mg Tablet) 650 mg PO Q6H PRN PRN Reason: Headache/Pain Mild Scale (1-3) Last Admin: 08/03/23 17:35 Dose: 650 mg Al Hydroxide/Mg Hydroxide (Magnesium Hydrox/Alum Hydrox 30 Ml Oral.Susp) 30 ml PO Q6H PRN PRN Reason: Heartburn/Nausea Amlodipine Besylate (Amlodipine Besylate 10 Mg Tablet) 10 mg PO DAILY [facility], [facility]; Protocol Last Admin: 08/04/23 08:11 Dose: 10 mg Cyanocobalamin (Cyanocobalamin (Vitamin B-12) 1,000 Mcg/Ml Vial) 1,000 mcg IM Q7D [facility]1983 Stop: 08/25/23 13:16 Folic Acid (Folic Acid 1 Mg Tablet) 1 mg PO DAILY [facility], [facility]1983 Ipratropium [place] (Ipratropium [place] Miguel A 0.03 % 30 Ml [place]) 2 spray NOSTRIL-B BID [facility], [facility]1983 Last Admin: 08/04/23 08:12 Dose: 2 spray Ketotifen Fumarate (Ketotifen Fumarate 0.025% Oph 5 Ml Drpbtl) 1 drop EYE-BOTH BID [facility], [facility]1983 Last Admin: 08/04/23 08:12 Dose: 1 drop Lisinopril (Lisinopril 40 Mg Tablet) 40 mg PO DAILY [facility]; Protocol Last Admin: 08/04/23 08:12 Dose: 40 mg Loratadine (Loratadine 10 Mg Tablet) 10 mg PO DAILY PRN PRN Reason: allergies Magnesium Hydroxide (Milk Of Magnesia 30 Ml Oral.Susp) 30 ml PO DAILY PRN PRN Reason: Constipation Trazodone HCl (Trazodone Hcl 50 Mg Tablet) 50 mg PO BEDTIME PRN PRN Reason: Insomnia Allergies Allergies Allergy/AdvReac Type Severity Reaction Status Date / Time No Known Allergies Allergy Verified 07/27/23 21:14 Assessment & Plan Assessment & Plan (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 Allen is a 83 year-old male with no prior psych or dementia dx who called 911 reporting seeing a man that disappear under his couch. His Utox was negative. In the ED, pt with some insight that what he saw was not there. He also presented oriented to situation, place, month, year. He did have periods of increase confusion and agitation. We discussed completing MOCA, ACL. Will given B12 and folic acid since in low. R/O neurocognitive disorder causing visual hallucination. PLAN 08/04- low B12 will start cyanocobalamine 1000mcg IM x 4 weeks, then oral. start folic acid 1mg po daily. pending results of MOCA and ACL. did add HIV testing. RPR- negative. Reason for continued inpatient stay Substantial Risk for: inability to function Time Spent With Patient Time: Total time managing care of this patient today ____ minutes.
[2023-08-04 13:21] LABS: Eosinophils Percent Auto 1.3 % (0-4); Hematocrit 37.1 % (42.0-52.0); Imm Gran Abs Auto 0.02 X10*3/uL (0.00-0.03); Imm Gran Pct Auto 0.7 % (0.0-0.4); Lymphocytes Absolute Auto 0.9 X10*3/uL (1.2-4.9); Lymphocytes Percent Auto 29.9 % (20-40); MANUAL DIFF FLAG SCAN; Mean Corpuscular HGB Conc 32.3 g/dl (31.0-36.0); Mean Corpuscular Hemoglobin 29.2 pg (27.0-33.0); Mean Corpuscular Volume 90.3 fL (80.0-98.0); Mean Platelet Volume 8.2 fL (9.4-12.4); Monocytes Absolute Auto 0.7 X10*3/uL (0.1-1.2); Monocytes Percent Auto 23.5 % (2-11); Neutrophils Absolute Auto 1.3 x10*3/uL (2.0-8.3); Neutrophils Percent Auto 44.6 % (45-73); Platelet Count 220 X10*3/uL (160-400); Red Blood Count 4.11 X10*6/uL (4.60-5.80); Red Cell Distribution Width 12.8 % (11.0-16.0); SCAN SMEAR FLAG 1
[2023-08-04 13:35] LABS: Alanine Aminotransferase 17 U/L (0-40); Albumin Level 4.3 g/dL (3.5-5.0); Alkaline Phosphatase 78 U/L (39-117); Anion Gap 13 (12-20); Aspartate Amino Transferase 34 U/L (5-37); Bilirubin Total 0.6 mg/dL (0.0-1.0); Blood Urea Nitrogen 26 mg/dL (9-16); Carbon Dioxide 28 mmol/L (22-29); Chloride 104 mmol/L (96-108); Creatinine Clr Calc Pharmacy 28.5; Estimated Glomerular Filt Rate 33; Glucose Random 104 mg/dL (60-115); Iron 35 mcg/dL (45-160); Percent Iron Saturation 17 % (15-50); Sodium 141 mmol/L (135-145); Total Iron Binding Capacity 205 mcg/dL (228-428); Total Protein 9.1 g/dL (6.5-8.0); Unsaturated Iron Binding 170 ug/dL
[2023-08-04 13:42] LABS: SLIDE REVIEW VERIFIED
[2023-08-04] MEDS: Folic Acid 1 MG TABLET PO (14:00)
[2023-08-04] MEDS: Cyanocobalamin (Vitamin B-12) 1,000 MCG/ML VIAL 1000 MCG IM (14:00)
[2023-08-04 18:00] VITALS: BP 158/66; PULSE 75; RESP 16; TEMP 36.3; O2SAT 98
[2023-08-04] MEDS: Acetaminophen 325 MG TABLET 650 MG PO (21:07)
[2023-08-05 04:23] LABS: HIV AB/AG Nonreactive (Nonreactive); HIV Num 1 0.06 S/CO (0.00-0.99)
[2023-08-05 08:39] VITALS: BP 93/52; PULSE 106; RESP 15; TEMP 37.1; O2SAT 99
[2023-08-05] MEDS: Folic Acid 1 MG TABLET PO (08:40)
[2023-08-05] MEDS: Ipratropium Bromide Nas 0.03 % 30 ML SPRAY 2 SPRAY NOSTRIL-B (08:41)
[2023-08-05] MEDS: Ketotifen Fumarate 0.025% Oph 5 ML DRPBTL 1 DROP EYE-BOTH (08:41)
[2023-08-05 09:50] VITALS: BP 136/72
[2023-08-05 09:55] VITALS: BP 131/72
--- NOTE | 2023-08-05 10:34 | HO.PSYCHPN ---
Subjective Subjective Date of Service: 08/05/23 Reason For Visit: Psychosis Subjective Notes: Conditional Voluntary Interim History: Pt had difficulty sleeping. Per nursing, last night he reported seeing male on the ceiling and being afraid of this person. Today, pt does not have much recollection of this happening. He was also increasingly getting more agitated, asking to leave because everyone is leaving now When this marketing copywriter saw him minutes after agitation, he did not remember happening. He appeared calmer, stating my morning are good BP low this morning SBP 90, DBP 50's. given fluids, rechecl, SBP 136/75. Checked Ortho VS, no significant different. Creatinine going up--> Cr. 1.92, BUN 34. Consulted hospitalist, but did not address renal function. Consulted again with Elisa Edwards, who recommended IV fluids, serial of BMP Lisinopril held. Review of Systems Review of Systems Pertinent positives and negatives as stated in HPI Mental Status Exam Mental Status Exam Narrative: Appearance: wearing hospital gown, fair hygiene, in NAD Behavior: cooperative Psychomotor: no agitation or retardation noted Speech: mostly clear, mumbles at times, regular rhythm/volume, spontaneous TP: mostly linear TC: feeling better, hoping to go home soon Mood: good Affect: brightens up at times SI: denies HI: denies VH/AH: denies at this time Delusions:no overt Insight/judgment:fair x 2. Memory/cog: alert, oriented to place, month, year and situation. pending MOCA and ACL Diagnostics Vital Signs (24Hr): Vital Signs - 24 hr 08/04/23 18:00 08/05/23 08:39 Temperature 97.4 F 98.8 F Pulse Rate 75 106 H Respiratory Rate 16 15 Blood Pressure 158/66 H 93/52 L Pulse Oximetry 98 99 Oxygen Delivery Method Room Air Room Air BMI result Body Mass Index 22.6 Labs 08/04/23 13:14 08/05/23 10:32 Labs: Laboratory Results - last 48 hr 08/03/23 08/04/23 10:17 13:14 WBC 3.0 L RBC 4.11 L Hgb 12.0 L Hct 37.1 L MCV 90.3 MCH 29.2 MCHC 32.3 RDW 12.8 Plt Count 220 MPV 8.2 L Immature Gran % (Auto) 0.7 H Neut % (Auto) 44.6 L Lymph % (Auto) 29.9 [place] % (Auto) 23.5 H Eos % (Auto) 1.3 Baso % (Auto) 0.0 Lymph # (Auto) 0.9 L [place] # (Auto) 0.7 Eos # (Auto) 0.0 Baso # (Auto) 0.0 Abs Immat Gran (auto) 0.02 Absolute Neuts (auto) 1.3 L Absolute Nucleated RBC 0.000 Nucleated RBC % (auto) 0.0 Smear Tech's Comments VERIFIED Sodium 141 Potassium 4.0 Chloride 104 Carbon Dioxide 28 Anion Gap 13 BUN 26 H Creatinine 1.94 H Estim Creat Clear Calc 28.5 Estimated GFR 33 Random Glucose 104 Calcium 10.0 Iron 35 L TIBC 205 L % Saturation 17 Unsat Iron Binding 170 Total Bilirubin 0.6 AST 34 ALT 17 Alkaline Phosphatase 78 Total Protein 9.1 H Albumin 4.3 COVID-19 ([facility]) Negative COVID-19 Clin Com See Note HIV 1&2 Ab/P24 Ag 4thGn Nonreactive Imaging Radiology Impressions: ITS Impressions Head CT 07/27/23 21:51 IMPRESSION: No acute intracranial process seen. Medications Medications Current Medications Acetaminophen (Acetaminophen 325 Mg Tablet) 650 mg PO Q6H PRN PRN Reason: Headache/Pain Mild Scale (1-3) Last Admin: 08/04/23 21:07 Dose: 650 mg Al Hydroxide/Mg Hydroxide (Magnesium Hydrox/Alum Hydrox 30 Ml Oral.Susp) 30 ml PO Q6H PRN PRN Reason: Heartburn/Nausea Cyanocobalamin (Cyanocobalamin (Vitamin B-12) 1,000 Mcg/Ml Vial) 1,000 mcg IM Q7D [facility] Stop: 08/25/23 13:16 Last Admin: 08/04/23 14:00 Dose: 1,000 mcg Donepezil HCl (Donepezil Hcl 5 Mg Tablet) 5 mg PO BEDTIME [facility] Folic Acid (Folic Acid 1 Mg Tablet) 1 mg PO DAILY [facility] Last Admin: 08/05/23 08:40 Dose: 1 mg Ipratropium [place] (Ipratropium [place] Miguel A 0.03 % 30 Ml [place]) 2 spray NOSTRIL-B BID [facility] Last Admin: 08/05/23 08:41 Dose: 2 spray Ketotifen Fumarate (Ketotifen Fumarate 0.025% Oph 5 Ml Drpbtl) 1 drop EYE-BOTH BID [facility] Last Admin: 08/05/23 08:41 Dose: 1 drop Lisinopril (Lisinopril 40 Mg Tablet) 40 mg PO DAILY [facility]; Protocol Last Admin: 08/05/23 08:41 Dose: Not Given Loratadine (Loratadine 10 Mg Tablet) 10 mg PO DAILY PRN PRN Reason: allergies Magnesium Hydroxide (Milk Of Magnesia 30 Ml Oral.Susp) 30 ml PO DAILY PRN PRN Reason: Constipation Trazodone HCl (Trazodone Hcl 50 Mg Tablet) 50 mg PO BEDTIME PRN PRN Reason: Insomnia Allergies Allergies Allergy/AdvReac Type Severity Reaction Status Date / Time No Known Allergies Allergy Verified 07/27/23 21:14 Assessment & Plan Assessment & Plan (1) Major neurocognitive disorder: Status: Acute Code(s): F03.90 - Unspecified dementia, unspecified severity, without behavioral disturbance, psychotic disturbance, mood disturbance, and anxiety Plan Mr. Allen is a 83 year-old male with no prior psych or dementia dx who called 911 reporting seeing a man that disappear under his couch. His Utox was negative. In the ED, pt with some insight that what he saw was not there. He also presented oriented to situation, place, month, year. He did have periods of increase confusion and agitation. We discussed completing MOCA, ACL. Will given B12 and folic acid since in low. R/O neurocognitive disorder causing visual hallucination. PLAN 08/04- low B12 will start cyanocobalamine 1000mcg IM x 4 weeks, then oral. start folic acid 1mg po daily. pending results of MOCA and ACL. did add HIV testing. RPR- negative. 08/05 MOCA score 9/30, ACL 3.4 indicating severe cognitive impairment. Fluctuating pattern of confusion, with VH mostly at night, resting tremors, ?LBD. Monitor renal function, IV fluids, held Lisinopril. Reason for continued inpatient stay Substantial Risk for: inability to function Time Spent With Patient Time: Total time managing care of this patient today ____ minutes.
[2023-08-05 10:53] LABS: Alanine Aminotransferase 16 U/L (0-40); Albumin Level 4.2 g/dL (3.5-5.0); Alkaline Phosphatase 73 U/L (39-117); Anion Gap 15 (12-20); Aspartate Amino Transferase 30 U/L (5-37); Bilirubin Total 0.6 mg/dL (0.0-1.0); Blood Urea Nitrogen 32 mg/dL (9-16); Calcium 9.6 mg/dL (8.4-10.2); Carbon Dioxide 23 mmol/L (22-29); Chloride 104 mmol/L (96-108); Creatinine Clr Calc Pharmacy 28.8; Estimated Glomerular Filt Rate 34; Glucose Random 115 mg/dL (60-115); Potassium 3.4 mmol/L (3.3-5.1); Sodium 139 mmol/L (135-145); Total Protein 8.9 g/dL (6.5-8.0)
--- NOTE | 2023-08-05 11:31 | HO.PM.IMCN ---
History of Present Illness Data of Consult Service Date: 08/05/23 Primary Care Provider: Unknown Physician HPI 83 year old male PMH HTN, per psychiatric documentation no prior psych disorder, admitted to geriatric psychiatric service for acute decompensation of psychiatric disorder. Patient seen/examined 1115 on 08/05/2023. Patient reports he is feeling well, reports chronic b/l lower extremity pain, described as sciatic. He normally takes tylenol and NSAIDs for relief. He states he came to the hospital because 'I was nervous, states somebody could have been in my house. Patient is very pleasant, he ambulates with a walker, denies any recent fever, chills, nausea, vomiting, diarrhea, chest pain, dyspnea, cough, abdominal pain, hematuria, melena, hematochezia, SI/HI PMFSH Social History Household Members: None Housing: Apartment Do you presently have visiting nurse or other home services: No Unable to assess alcohol history related to: Unknown Patient Tobacco Use Status: Never used Tobacco Smoked in Last 30 Days: No e-Cigarette/Vaping Use: Never Used Patient Interested in Nicotine Replacement: No Patient Given Instructions on How to Stop Smoking: No Second Hand Smoke Exposure: No Use of substances other than those prescribed or required for medical reasons: No Currently Displaying Signs/Symptoms of Drug Intoxication Withdrawal: No Any prior treatment program specific to substance use: No Have you been hit, kicked, punched, or otherwise hurt by someone within the past year? If so, by whom?: No Do you feel safe in your current relationship?: No Current Relationship Is there a partner from a previous relationship who is making you feel unsafe now?: No Are you made to feel afraid or neglected: No Advance Directives: Yes Advance Directives Information Provided: Yes Advance Directives on File: Yes Advance Directives Date on File: 07/28/23 Healthcare Proxy: Yes (Allegra Jackson (niece) [phone]) Guardian: No Do you have thoughts of harming others: None Do you have a plan to hurt others: No Plan Recently lost weight without trying: No Eating poorly because of decreased appetite: No Nutrition Risks: No Nutritional Risk Poor oral hygiene: No service: No Sexual orientation: Straight/Heterosexual Meds Allergies Allergy/AdvReac Type Severity Reaction Status Date / Time No Known Allergies Allergy Verified 07/27/23 21:14 Active Medications: Current Medications Acetaminophen (Acetaminophen 325 Mg Tablet) 650 mg PO Q6H PRN PRN Reason: Headache/Pain Mild Scale (1-3) Last Admin: 08/04/23 21:07 Dose: 650 mg Al Hydroxide/Mg Hydroxide (Magnesium Hydrox/Alum Hydrox 30 Ml Oral.Susp) 30 ml PO Q6H PRN PRN Reason: Heartburn/Nausea Cyanocobalamin (Cyanocobalamin (Vitamin B-12) 1,000 Mcg/Ml Vial) 1,000 mcg IM Q7D [facility] Stop: 08/25/23 13:16 Last Admin: 08/04/23 14:00 Dose: 1,000 mcg Donepezil HCl (Donepezil Hcl 5 Mg Tablet) 5 mg PO BEDTIME [facility] Folic Acid (Folic Acid 1 Mg Tablet) 1 mg PO DAILY [facility] Last Admin: 08/05/23 08:40 Dose: 1 mg Ipratropium [place] (Ipratropium [place] Miguel A 0.03 % 30 Ml [place]) 2 spray NOSTRIL-B BID [facility] Last Admin: 08/05/23 08:41 Dose: 2 spray Ketotifen Fumarate (Ketotifen Fumarate 0.025% Oph 5 Ml Drpbtl) 1 drop EYE-BOTH BID [facility] Last Admin: 08/05/23 08:41 Dose: 1 drop Lisinopril (Lisinopril 40 Mg Tablet) 40 mg PO DAILY [facility]; Protocol Last Admin: 08/05/23 08:41 Dose: Not Given Loratadine (Loratadine 10 Mg Tablet) 10 mg PO DAILY PRN PRN Reason: allergies Magnesium Hydroxide (Milk Of Magnesia 30 Ml Oral.Susp) 30 ml PO DAILY PRN PRN Reason: Constipation Trazodone HCl (Trazodone Hcl 50 Mg Tablet) 50 mg PO BEDTIME PRN PRN Reason: Insomnia Home Medications Medication Instructions Recorded Confirmed Last Taken Type acetaminophen 325 mg tablet 650 mg PO Q6H PRN pain 07/28/23 07/28/23 Unknown History amlodipine 5 mg tablet 5 mg PO DAILY 07/28/23 07/28/23 Unknown History cetirizine 10 mg tablet 10 mg PO DAILY PRN allergies 07/28/23 07/28/23 Unknown History ipratropium bromide 21 mcg (0.03 2 spray intranasal BID 07/28/23 07/28/23 Unknown History %) nasal spray ketotifen fumarate 0.025 % (0.035 1 drp ophthalmic (eye) BID 07/28/23 07/28/23 Unknown History %) eye drops (Eye Itch Relief) lisinopril 40 mg tablet 40 mg PO DAILY 07/28/23 07/28/23 Unknown History Physical Exam Vital Signs and Narrative: Vital Signs: Last Vital Signs Temp 98.8 F 08/05/23 08:39 Pulse 106 H 08/05/23 08:39 Resp 15 08/05/23 08:39 BP 131/72 08/05/23 09:55 Pulse Ox 99 08/05/23 08:39 O2 Del Method Room Air 08/05/23 08:39 BMI result Body Mass Index 22.6 Constitutional: Well appearing, 83 year old male, NAD HEENT: No lymphadenopathy, no scleral icterae, no JVD Cardiovascular: S1/S2 heard, No MRG Respiratory: Lung sounds CTA bilaterally Gastrointestinal: Normal BS throughout, neg murphys. : Deferred Neuro: No FND, moving all 4 extremities spontaneously Psych: Calm/cooperative Results Labs 08/04/23 13:14 08/05/23 10:32 Labs: Laboratory Results - last 24 hr 08/04/23 08/05/23 13:14 10:32 MCV 90.3 MCH 29.2 MCHC 32.3 RDW 12.8 Plt Count 220 MPV 8.2 L Immature Gran % (Auto) 0.7 H Neut % (Auto) 44.6 L Lymph % (Auto) 29.9 [place] % (Auto) 23.5 H Eos % (Auto) 1.3 Baso % (Auto) 0.0 Lymph # (Auto) 0.9 L [place] # (Auto) 0.7 Eos # (Auto) 0.0 Baso # (Auto) 0.0 Abs Immat Gran (auto) 0.02 Absolute Neuts (auto) 1.3 L Absolute Nucleated RBC 0.000 Nucleated RBC % (auto) 0.0 Smear Tech's Comments VERIFIED Anion Gap 13 15 Estim Creat Clear Calc 28.5 28.8 Estimated GFR 33 34 Random Glucose 104 115 Calcium 10.0 9.6 Iron 35 L TIBC 205 L % Saturation 17 Unsat Iron Binding 170 Total Bilirubin 0.6 0.6 AST 34 30 ALT 17 16 Alkaline Phosphatase 78 73 Total Protein 9.1 H 8.9 H Albumin 4.3 4.2 HIV 1&2 Ab/P24 Ag 4thGn Nonreactive Assessment and Plan (1) Hypertension: Status: Acute (2) Prolonged QT interval: Status: Acute (3) Constipation: Status: Acute Plan 83 year old male aforementioned [facility], no prior psychiatric disorder admitted to geriatric psychiatric service. 1. Hypertension: HD stable, bp well controlled. No change to home medications, continue amlodipine 5mg daily, lisonopril 40mg daily. 2. Prolonged Qt: QTc 474 per ekg 08/02/2023, if clinically indicated consider medical intervention w/o SE profile of QT prolongation 3. Chronic constipation: continue MOM prn, can consider adding docusate 200mg daily. Last BM reported 2 days ago. 4. ? Dementia/Psychosis: management as per psychiatric team, no medical contraindication to medications currently administered.
[2023-08-05 11:49] LABS: Influenza A PCR NEGATIVE (Negative); Influenza B PCR NEGATIVE (Negative); Resp Syncy Virus RNA Qual PCR NEGATIVE (Negative); SARS COV2 PCR INHOUSE NEGATIVE (Negative)
[2023-08-05 18:00] VITALS: BP 140/74; PULSE 90; RESP 16; TEMP 36.6; O2SAT 99
[2023-08-05] MEDS: OLANZapine 2.5 MG TABLET PO (18:15)
[2023-08-05] MEDS: LORazepam 0.5 MG TABLET PO (18:16)
--- NOTE | 2023-08-05 18:35 | PC.NURSE ---
During dinner this patient barricaded himself in hid room with a large chair in front of the door. He would not come out or open the door. He said that he would not eat anything or take any medication because we were trying to poison him. When his roommate knocked on the door he yelled and screamed at him. He was swinging his wastebasket at us. Bev Prasad [employer] ASSOCIATE updated and new orders for prn Ativan and Zyprexa were given. At first the patient would not take the medication. He spoke via telephone to 2 of his nieces.Then IVF were ordered and I spoke to the patient about the need for IVF due to Acute Kidney Injury and he finally agreed to take the PO meds and get the IV placed. IV inserted by the nursing estimator and drafter supervisor, patient tolerated the procedure well. Patient currently resting calmly in bed.
--- NOTE | 2023-08-05 19:17 | PC.NURSE ---
Per patient's request, his niece Cindy was updated about the IVF treatment for BECKIE today. IVF infusing well.
[2023-08-05] MEDS: 0.9 % Sodium Chloride 500 ML 999 ML IV (19:24)
[2023-08-05] MEDS: Acetaminophen 325 MG TABLET 650 MG PO (20:25)
[2023-08-05] MEDS: Donepezil HCl 5 MG TABLET PO (20:27)
[2023-08-05] MEDS: traZODone HCL 50 MG TABLET PO (20:33)
[2023-08-05] MEDS: LORazepam 1 MG TABLET PO (20:34)
[2023-08-05 20:54] LABS: Ferritin 584 ng/mL (20-250)
[2023-08-05 22:00] VITALS: BP 172/72; PULSE 92; RESP 16; TEMP 36.4; O2SAT 98
[2023-08-06 07:50] VITALS: BP 144/63; PULSE 88; RESP 18; TEMP 36.6; O2SAT 99
[2023-08-06 07:50] LABS: Anion Gap 14 (12-20); Blood Urea Nitrogen 30 mg/dL (9-16); Calcium 9.5 mg/dL (8.4-10.2); Carbon Dioxide 24 mmol/L (22-29); Chloride 106 mmol/L (96-108); Creatinine Clr Calc Pharmacy 46.4; Estimated Glomerular Filt Rate 59; Glucose Random 90 mg/dL (60-115); Potassium 3.5 mmol/L (3.3-5.1); Sodium 140 mmol/L (135-145)
[2023-08-06] MEDS: Folic Acid 1 MG TABLET PO (08:26)
[2023-08-06] MEDS: Ipratropium Bromide Nas 0.03 % 30 ML SPRAY 2 SPRAY NOSTRIL-B (08:26)
[2023-08-06] MEDS: Ketotifen Fumarate 0.025% Oph 5 ML DRPBTL 1 DROP EYE-BOTH (08:26)
--- NOTE | 2023-08-06 11:30 | HO.PSYCHPN ---
Subjective Subjective Date of Service: 08/06/23 Reason For Visit: Psychosis Subjective Notes: Conditional Voluntary Healthcare Proxy: Yes Interim History: Pt slept most of the night. He was increasingly more confused in the evening. When his roommate when into the room, pt confused thinking he was at home and roommate was intruder. He received IV fluids, this morning creatinine significantly decreased to 1.19, BUN 30. Pt pleasant on approach. He does not remember period of confusion yesterday. WIll schedule seroquel during the day. continue aricept. Review of Systems Review of Systems Pertinent positives and negatives as stated in HPI Mental Status Exam Mental Status Exam Narrative: Appearance: wearing hospital gown, fair hygiene, in NAD Behavior: cooperative Psychomotor: no agitation or retardation noted Speech: mostly clear, mumbles at times, regular rhythm/volume, spontaneous TP: mostly linear TC: feeling better, hoping to go home soon Mood: good Affect: brightens up at times SI: denies HI: denies VH/AH: denies at this time Delusions:no overt Insight/judgment:fair x 2. Memory/cog: alert, oriented to place, month, year and situation. pending MOCA and ACL Diagnostics Vital Signs (24Hr): Vital Signs - 24 hr 08/05/23 18:00 08/05/23 22:00 08/06/23 07:50 Temperature 97.8 F 97.5 F 97.9 F Pulse Rate 90 92 88 Respiratory Rate 16 16 18 Blood Pressure 140/74 H 172/72 H 144/63 H Pulse Oximetry 99 98 99 Oxygen Delivery Method Room Air Room Air Room Air BMI result Body Mass Index 22.6 Labs 08/04/23 13:14 08/06/23 07:26 Labs: Laboratory Results - last 48 hr 08/04/23 08/05/23 08/05/23 13:14 10:32 10:53 WBC 3.0 L RBC 4.11 L Hgb 12.0 L Hct 37.1 L MCV 90.3 MCH 29.2 MCHC 32.3 RDW 12.8 Plt Count 220 MPV 8.2 L Immature Gran % (Auto) 0.7 H Neut % (Auto) 44.6 L Lymph % (Auto) 29.9 [place] % (Auto) 23.5 H Eos % (Auto) 1.3 Baso % (Auto) 0.0 Lymph # (Auto) 0.9 L [place] # (Auto) 0.7 Eos # (Auto) 0.0 Baso # (Auto) 0.0 Abs Immat Gran (auto) 0.02 Absolute Neuts (auto) 1.3 L Absolute Nucleated RBC 0.000 Nucleated RBC % (auto) 0.0 Smear Tech's Comments VERIFIED Hold Purple Top Sodium 141 139 Potassium 4.0 3.4 Chloride 104 104 Carbon Dioxide 28 23 Anion Gap 13 15 BUN 26 H 32 H Creatinine 1.94 H 1.92 H Estim Creat Clear Calc 28.5 28.8 Estimated GFR 33 34 Random Glucose 104 115 Calcium 10.0 9.6 Iron 35 L TIBC 205 L % Saturation 17 Unsat Iron Binding 170 Ferritin 584 H Total Bilirubin 0.6 0.6 AST 34 30 ALT 17 16 Alkaline Phosphatase 78 73 C-Reactive Protein 0.40 Total Protein 9.1 H 8.9 H Albumin 4.3 4.2 HIV 1&2 Ab/P24 Ag 4thGn Nonreactive Influenza Type A (PCR) NEGATIVE Influenza Type B (PCR) NEGATIVE RSV RNA Qual (PCR) NEGATIVE SARS-CoV-2 RNA (RT-PCR) NEGATIVE 08/06/23 07:26 WBC RBC Hgb Hct MCV MCH MCHC RDW Plt Count MPV Immature Gran % (Auto) Neut % (Auto) Lymph % (Auto) [place] % (Auto) Eos % (Auto) Baso % (Auto) Lymph # (Auto) [place] # (Auto) Eos # (Auto) Baso # (Auto) Abs Immat Gran (auto) Absolute Neuts (auto) Absolute Nucleated RBC Nucleated RBC % (auto) Smear Tech's Comments Hold Purple Top SEE NOTE Sodium 140 Potassium 3.5 Chloride 106 Carbon Dioxide 24 Anion Gap 14 BUN 30 H Creatinine 1.19 Estim Creat Clear Calc 46.4 Estimated GFR 59 Random Glucose 90 Calcium 9.5 Iron TIBC % Saturation Unsat Iron Binding Ferritin Total Bilirubin AST ALT Alkaline Phosphatase C-Reactive Protein Total Protein Albumin HIV 1&2 Ab/P24 Ag 4thGn Influenza Type A (PCR) Influenza Type B (PCR) RSV RNA Qual (PCR) SARS-CoV-2 RNA (RT-PCR) Imaging Radiology Impressions: ITS Impressions Head CT 07/27/23 21:51 IMPRESSION: No acute intracranial process seen. Medications Medications Current Medications Acetaminophen (Acetaminophen 325 Mg Tablet) 650 mg PO Q6H PRN PRN Reason: Headache/Pain Mild Scale (1-3) Last Admin: 08/05/23 20:25 Dose: 650 mg Al Hydroxide/Mg Hydroxide (Magnesium Hydrox/Alum Hydrox 30 Ml Oral.Susp) 30 ml PO Q6H PRN PRN Reason: Heartburn/Nausea Cyanocobalamin (Cyanocobalamin (Vitamin B-12) 1,000 Mcg/Ml Vial) 1,000 mcg IM Q7D [facility] Stop: 08/25/23 13:16 Last Admin: 08/04/23 14:00 Dose: 1,000 mcg Donepezil HCl (Donepezil Hcl 5 Mg Tablet) 5 mg PO BEDTIME [facility] Last Admin: 08/05/23 20:27 Dose: 5 mg Folic Acid (Folic Acid 1 Mg Tablet) 1 mg PO DAILY [facility] Last Admin: 08/06/23 08:26 Dose: 1 mg Ipratropium [place] (Ipratropium [place] Miguel A 0.03 % 30 Ml [place]) 2 spray NOSTRIL-B BID [facility] Last Admin: 08/06/23 08:26 Dose: 2 spray Ketotifen Fumarate (Ketotifen Fumarate 0.025% Oph 5 Ml Drpbtl) 1 drop EYE-BOTH BID [facility] Last Admin: 08/06/23 08:26 Dose: 1 drop Lisinopril (Lisinopril 40 Mg Tablet) 40 mg PO DAILY [facility]; Protocol Last Admin: 08/05/23 08:41 Dose: Not Given Loratadine (Loratadine 10 Mg Tablet) 10 mg PO DAILY PRN PRN Reason: allergies Magnesium Hydroxide (Milk Of Magnesia 30 Ml Oral.Susp) 30 ml PO DAILY PRN PRN Reason: Constipation Olanzapine (Olanzapine 2.5 Mg Tablet) 2.5 mg PO Q6H PRN PRN Reason: agitation Last Admin: 08/05/23 18:15 Dose: 2.5 mg Trazodone HCl (Trazodone Hcl 50 Mg Tablet) 50 mg PO BEDTIME PRN PRN Reason: Insomnia Last Admin: 08/05/23 20:33 Dose: 50 mg Allergies Allergies Allergy/AdvReac Type Severity Reaction Status Date / Time No Known Allergies Allergy Verified 07/27/23 21:14 Assessment & Plan Assessment & Plan (1) Major neurocognitive disorder: Status: Acute Code(s): F03.90 - Unspecified dementia, unspecified severity, without behavioral disturbance, psychotic disturbance, mood disturbance, and anxiety Plan Mr. Allen is a 83 year-old male with no prior psych or dementia dx who called 911 reporting seeing a man that disappear under his couch. His Utox was negative. In the ED, pt with some insight that what he saw was not there. He also presented oriented to situation, place, month, year. He did have periods of increase confusion and agitation. We discussed completing MOCA, ACL. Will given B12 and folic acid since in low. R/O neurocognitive disorder causing visual hallucination. PLAN 08/04- low B12 will start cyanocobalamine 1000mcg IM x 4 weeks, then oral. start folic acid 1mg po daily. pending results of MOCA and ACL. did add HIV testing. RPR- negative. 08/05 MOCA score 9/30, ACL 3.4 indicating severe cognitive impairment. Fluctuating pattern of confusion, with VH mostly at night, resting tremors, ?LBD. Monitor renal function, IV fluids, held Lisinopril. 08/06 Improved Cr 1.19, BUN 30. Pt more confused in evening. Seroquel 50mg po BID at 3pm and 8pm. continue aricept. Reason for continued inpatient stay Substantial Risk for: inability to function Time Spent With Patient Time: Total time managing care of this patient today ____ minutes.
[2023-08-06 13:20] LABS: Appearance Urine Cloudy; Color Urine Dark Yellow; Glucose Urine UA Negative (Negative); Leukocyte Esterase Urine Trace (Negative); Nitrite Urine Negative (Negative); PH 5.5 (5.0-9.0); Specific Gravity - Urine >= 1.030 (1.005-1.025); UMIC TRIGGER UA YES; Urine Blood Negative (Negative); Urine Ketones 15 mg/dL (Negative); Urine Protein 30 (1+) mg/dL (Neg-Trace)
--- NOTE | 2023-08-06 13:32 | PM.EVENT ---
Event Note Date of Service: 08/06/23 Event Note: Renal function has returned to baseline. Would continue holding lisinopril for the time being. Added amlodipine 5mg daily for htn. Encourage PO hydration. Time Spent With Patient Time: Total time managing care of this patient today ____ minutes.
[2023-08-06 14:03] LABS: Bacteria Urine None Seen (None Seen); Granular Casts Urine Present; RBC Urine 0-2 /HPF (0-2); WBC Urine 0-5 /HPF (0-5)
[2023-08-06] MEDS: amLODIPine Besylate 5 MG TABLET PO (14:21)
[2023-08-06] MEDS: Acetaminophen 325 MG TABLET 650 MG PO ×2 (14:58→22:50)
[2023-08-06] MEDS: QUEtiapine Fumarate 50 MG TABLET PO ×2 (14:58→20:23)
[2023-08-06 18:00] VITALS: BP 120/56; PULSE 74; RESP 18; TEMP 36.8; O2SAT 99
[2023-08-06] MEDS: OLANZapine 2.5 MG TABLET PO ×2 (18:31→22:52)
[2023-08-06] MEDS: traZODone HCL 50 MG TABLET PO ×2 (20:16→22:51)
[2023-08-06] MEDS: Donepezil HCl 5 MG TABLET PO (20:16)
[2023-08-06] MEDS: LORazepam 1 MG TABLET PO (20:17)
[2023-08-07] MEDS: LORazepam 1 MG TABLET PO (01:14)
[2023-08-07 08:00] VITALS: BP 131/75; PULSE 90; RESP 18; TEMP 36.2; O2SAT 100
[2023-08-07] MEDS: Ketotifen Fumarate 0.025% Oph 5 ML DRPBTL 1 DROP EYE-BOTH ×2 (08:12→20:01)
[2023-08-07] MEDS: Ipratropium Bromide Nas 0.03 % 30 ML SPRAY 2 SPRAY NOSTRIL-B ×2 (08:12→20:01)
[2023-08-07] MEDS: amLODIPine Besylate 5 MG TABLET PO (08:13)
[2023-08-07] MEDS: Folic Acid 1 MG TABLET PO (08:13)
[2023-08-07] MEDS: Acetaminophen 325 MG TABLET 650 MG PO ×2 (08:37→17:35)
[2023-08-07 12:36] LABS: COVID-19 Test Negative (Negative); IDNOW Serial# 58CA691E
--- NOTE | 2023-08-07 13:12 | HO.PSYCHPN ---
Subjective Subjective Date of Service: 08/07/23 Reason For Visit: Psychosis Subjective Notes: Conditional Voluntary Interim History: Pt slept most of the night.Pt appeared sedated today carry over effects of last night medications. Pending family meeting to discuss level of cognitive of impairment which is severe and services needed to be safe in the community. Review of Systems Review of Systems Pertinent positives and negatives as stated in HPI Mental Status Exam Mental Status Exam Narrative: Appearance: wearing hospital gown, fair hygiene, in NAD Behavior: cooperative Psychomotor: no agitation or retardation noted Speech: mostly clear, mumbles at times, regular rhythm/volume, spontaneous TP: mostly linear TC: feeling better, hoping to go home soon Mood: good Affect: brightens up at times SI: denies HI: denies VH/AH: denies at this time Delusions:no overt Insight/judgment:fair x 2. Memory/cog: alert, oriented to place, month, year and situation. pending MOCA and ACL Diagnostics Vital Signs (24Hr): Vital Signs - 24 hr 08/06/23 18:00 Temperature 98.2 F Pulse Rate 74 Respiratory Rate 18 Blood Pressure 120/56 L Pulse Oximetry 99 Oxygen Delivery Method Room Air BMI result Body Mass Index 22.6 Labs 08/04/23 13:14 08/06/23 07:26 Labs: Laboratory Results - last 48 hr 08/05/23 08/06/23 08/06/23 10:32 07:26 13:09 Hold Purple Top SEE NOTE Sodium 140 Potassium 3.5 Chloride 106 Carbon Dioxide 24 Anion Gap 14 BUN 30 H Creatinine 1.19 Estim Creat Clear Calc 46.4 Estimated GFR 59 Random Glucose 90 Calcium 9.5 Ferritin 584 H C-Reactive Protein 0.40 Urine Color Dark Yellow Urine Appearance Cloudy Urine pH 5.5 Ur Specific [place] >= 1.030 H Urine Protein 30 (1+) H Urine Glucose (UA) Negative Urine Ketones 15 Urine Blood Negative Urine Nitrite Negative Ur Leukocyte Esterase Trace H Urine RBC 0-2 Urine WBC 0-5 Ur Squamous Epith Cells 3-5 Urine Bacteria None Seen Hyaline Casts 6-10 Granular Casts Present COVID-19 ([facility]) COVID-19 Clin Com 08/07/23 11:08 Hold Purple Top Sodium Potassium Chloride Carbon Dioxide Anion Gap BUN Creatinine Estim Creat Clear Calc Estimated GFR Random Glucose Calcium Ferritin C-Reactive Protein Urine Color Urine Appearance Urine pH Ur Specific [place] Urine Protein Urine Glucose (UA) Urine Ketones Urine Blood Urine Nitrite Ur Leukocyte Esterase Urine RBC Urine WBC Ur Squamous Epith Cells Urine Bacteria Hyaline Casts Granular Casts COVID-19 ([facility]) Negative COVID-19 Clin Com See Note Imaging Radiology Impressions: ITS Impressions Head CT 07/27/23 21:51 IMPRESSION: No acute intracranial process seen. Medications Medications Current Medications Acetaminophen (Acetaminophen 325 Mg Tablet) 650 mg PO Q6H PRN PRN Reason: Headache/Pain Mild Scale (1-3) Last Admin: 08/07/23 08:37 Dose: 650 mg Al Hydroxide/Mg Hydroxide (Magnesium Hydrox/Alum Hydrox 30 Ml Oral.Susp) 30 ml PO Q6H PRN PRN Reason: Heartburn/Nausea Amlodipine Besylate (Amlodipine Besylate 5 Mg Tablet) 5 mg PO DAILY [facility]; Protocol Last Admin: 08/07/23 08:13 Dose: 5 mg Cyanocobalamin (Cyanocobalamin (Vitamin B-12) 1,000 Mcg/Ml Vial) 1,000 mcg IM Q7D [facility] Stop: 08/25/23 13:16 Last Admin: 08/04/23 14:00 Dose: 1,000 mcg Donepezil HCl (Donepezil Hcl 5 Mg Tablet) 5 mg PO BEDTIME [facility] Last Admin: 08/06/23 20:16 Dose: 5 mg Folic Acid (Folic Acid 1 Mg Tablet) 1 mg PO DAILY [facility] Last Admin: 08/07/23 08:13 Dose: 1 mg Ipratropium [place] (Ipratropium [place] Miguel A 0.03 % 30 Ml [place]) 2 spray NOSTRIL-B BID [facility] Last Admin: 08/07/23 08:12 Dose: 2 spray Ketotifen Fumarate (Ketotifen Fumarate 0.025% Oph 5 Ml Drpbtl) 1 drop EYE-BOTH BID [facility] Last Admin: 08/07/23 08:12 Dose: 1 drop Lisinopril (Lisinopril 40 Mg Tablet) 40 mg PO DAILY [facility]; Protocol Last Admin: 08/05/23 08:41 Dose: Not Given Loratadine (Loratadine 10 Mg Tablet) 10 mg PO DAILY PRN PRN Reason: allergies Magnesium Hydroxide (Milk Of Magnesia 30 Ml Oral.Susp) 30 ml PO DAILY PRN PRN Reason: Constipation Olanzapine (Olanzapine 2.5 Mg Tablet) 2.5 mg PO Q6H PRN PRN Reason: agitation Last Admin: 08/06/23 22:52 Dose: 2.5 mg Quetiapine Fumarate (Quetiapine Fumarate 50 Mg Tablet) 50 mg PO BID@1500,2000 [facility] Last Admin: 08/06/23 20:23 Dose: 50 mg Trazodone HCl (Trazodone Hcl 50 Mg Tablet) 50 mg PO BEDTIME PRN PRN Reason: Insomnia Last Admin: 08/06/23 22:51 Dose: 50 mg Allergies Allergies Allergy/AdvReac Type Severity Reaction Status Date / Time No Known Allergies Allergy Verified 07/27/23 21:14 Assessment & Plan Assessment & Plan (1) Major neurocognitive disorder: Status: Acute Code(s): F03.90 - Unspecified dementia, unspecified severity, without behavioral disturbance, psychotic disturbance, mood disturbance, and anxiety Plan Mr. Allen is a 83 year-old male with no prior psych or dementia dx who called 911 reporting seeing a man that disappear under his couch. His Utox was negative. In the ED, pt with some insight that what he saw was not there. He also presented oriented to situation, place, month, year. He did have periods of increase confusion and agitation. We discussed completing MOCA, ACL. Will given B12 and folic acid since in low. R/O neurocognitive disorder causing visual hallucination. PLAN 08/04- low B12 will start cyanocobalamine 1000mcg IM x 4 weeks, then oral. start folic acid 1mg po daily. pending results of MOCA and ACL. did add HIV testing. RPR- negative. 08/05 MOCA score 9/30, ACL 3.4 indicating severe cognitive impairment. Fluctuating pattern of confusion, with VH mostly at night, resting tremors, ?LBD. Monitor renal function, IV fluids, held Lisinopril. 08/06 Improved Cr 1.19, BUN 30. Pt more confused in evening. Seroquel 50mg po BID at 3pm and 8pm. continue aricept. 08/07 decrease seroquel due to over sedation. Reason for continued inpatient stay Substantial Risk for: inability to function Time Spent With Patient Time: Total time managing care of this patient today ____ minutes.
[2023-08-07] MEDS: QUEtiapine Fumarate 25 MG TABLET PO (20:01)
[2023-08-07] MEDS: Donepezil HCl 5 MG TABLET PO (20:01)
[2023-08-07 20:08] VITALS: BP 181/82; PULSE 74; RESP 16; TEMP 36.6; O2SAT 97
[2023-08-08 09:34] VITALS: BP 104/51; PULSE 99; RESP 16; TEMP 36.4; O2SAT 99
[2023-08-08] MEDS: Ketotifen Fumarate 0.025% Oph 5 ML DRPBTL 1 DROP EYE-BOTH ×2 (09:38→20:04)
[2023-08-08] MEDS: Acetaminophen 325 MG TABLET 650 MG PO (09:38)
[2023-08-08] MEDS: Ipratropium Bromide Nas 0.03 % 30 ML SPRAY 2 SPRAY NOSTRIL-B ×2 (09:38→20:04)
[2023-08-08] MEDS: amLODIPine Besylate 5 MG TABLET PO (09:39)
[2023-08-08] MEDS: Folic Acid 1 MG TABLET PO (09:39)
--- NOTE | 2023-08-08 09:51 | P.PNPSI_ITS ---
Subjective Subjective Date of Service: 08/08/23 Reason For Visit: Psychosis Subjective Notes: Conditional Voluntary Interim History: Pt slept most of the night.Pt appeared less sedated today. Ambulating better. He denies any concerns at this point. He denies SI/HI. No VH/AH. No behavioral concerns. Review of Systems Review of Systems Pertinent positives and negatives as stated in HPI Mental Status Exam Mental Status Exam Narrative: Appearance: wearing hospital gown, fair hygiene, in NAD Behavior: cooperative Psychomotor: no agitation or retardation noted Speech: mostly clear, mumbles at times, regular rhythm/volume, spontaneous TP: mostly linear TC: feeling better, hoping to go home soon Mood: good Affect: brightens up at times SI: denies HI: denies VH/AH: denies at this time Delusions:no overt Insight/judgment:fair x 2. Memory/cog: alert, oriented to place, month, year and situation. pending MOCA and ACL Diagnostics Vital Signs (24Hr): Vital Signs - 24 hr 08/07/23 20:08 08/08/23 09:34 Temperature 97.8 F 97.5 F Pulse Rate 74 99 Respiratory Rate 16 16 Blood Pressure 181/82 H 104/51 L Pulse Oximetry 97 99 Oxygen Delivery Method Room Air Room Air BMI result Body Mass Index 22.6 Labs 08/04/23 13:14 08/09/23 09:46 Labs: Laboratory Results - last 48 hr 08/06/23 08/07/23 13:09 11:08 Urine Color Dark Yellow Urine Appearance Cloudy Urine pH 5.5 Ur Specific [place] >= 1.030 H Urine Protein 30 (1+) H Urine Glucose (UA) Negative Urine Ketones 15 Urine Blood Negative Urine Nitrite Negative Ur Leukocyte Esterase Trace H Urine RBC 0-2 Urine WBC 0-5 Ur Squamous Epith Cells 3-5 Urine Bacteria None Seen Hyaline Casts 6-10 Granular Casts Present COVID-19 ([facility]) Negative COVID-19 Clin Com See Note Imaging Radiology Impressions: ITS Impressions Head CT 07/27/23 21:51 IMPRESSION: No acute intracranial process seen. Medications Medications Current Medications Acetaminophen (Acetaminophen 325 Mg Tablet) 650 mg PO Q6H PRN PRN Reason: Headache/Pain Mild Scale (1-3) Last Admin: 08/08/23 09:38 Dose: 650 mg Al Hydroxide/Mg Hydroxide (Magnesium Hydrox/Alum Hydrox 30 Ml Oral.Susp) 30 ml PO Q6H PRN PRN Reason: Heartburn/Nausea Amlodipine Besylate (Amlodipine Besylate 5 Mg Tablet) 5 mg PO DAILY [facility]; Protocol Last Admin: 08/08/23 09:39 Dose: 5 mg Cyanocobalamin (Cyanocobalamin (Vitamin B-12) 1,000 Mcg/Ml Vial) 1,000 mcg IM Q7D [facility] Stop: 08/25/23 13:16 Last Admin: 08/04/23 14:00 Dose: 1,000 mcg Donepezil HCl (Donepezil Hcl 5 Mg Tablet) 5 mg PO BEDTIME [facility] Last Admin: 08/07/23 20:01 Dose: 5 mg Folic Acid (Folic Acid 1 Mg Tablet) 1 mg PO DAILY [facility] Last Admin: 08/08/23 09:39 Dose: 1 mg Ipratropium [place] (Ipratropium [place] 0.03 % 30 Ml [place]) 2 spray NOSTRIL-B BID [facility] Last Admin: 08/08/23 09:38 Dose: 2 spray Ketotifen Fumarate (Ketotifen Fumarate 0.025% Oph 5 Ml Drpbtl) 1 drop EYE-BOTH BID [facility] Last Admin: 08/08/23 09:38 Dose: 1 drop Lisinopril (Lisinopril 40 Mg Tablet) 40 mg PO DAILY [facility]; Protocol Last Admin: 08/05/23 08:41 Dose: Not Given Loratadine (Loratadine 10 Mg Tablet) 10 mg PO DAILY PRN PRN Reason: allergies Magnesium Hydroxide (Milk Of Magnesia 30 Ml Oral.Susp) 30 ml PO DAILY PRN PRN Reason: Constipation Olanzapine (Olanzapine 2.5 Mg Tablet) 2.5 mg PO Q8H PRN PRN Reason: agitation Quetiapine Fumarate (Quetiapine Fumarate 25 Mg Tablet) 25 mg PO BEDTIME [facility] Last Admin: 08/07/23 20:01 Dose: 25 mg Trazodone HCl (Trazodone Hcl 50 Mg Tablet) 50 mg PO BEDTIME PRN PRN Reason: Insomnia Last Admin: 08/06/23 22:51 Dose: 50 mg Allergies Allergies Allergy/AdvReac Type Severity Reaction Status Date / Time No Known Allergies Allergy Verified 07/27/23 21:14 Assessment & Plan Assessment & Plan (1) Major neurocognitive disorder: Status: Acute Code(s): F03.90 - Unspecified dementia, unspecified severity, without behavioral disturbance, psychotic disturbance, mood disturbance, and anxiety Plan Mr. Allen is a 83 year-old male with no prior psych or dementia dx who called 911 reporting seeing a man that disappear under his couch. His Utox was negative. In the ED, pt with some insight that what he saw was not there. He also presented oriented to situation, place, month, year. He did have periods of increase confusion and agitation. We discussed completing MOCA, ACL. Will given B12 and folic acid since in low. R/O neurocognitive disorder causing visual hallucination. PLAN 08/04- low B12 will start cyanocobalamine 1000mcg IM x 4 weeks, then oral. start folic acid 1mg po daily. pending results of MOCA and ACL. did add HIV testing. RPR- negative. 08/05 MOCA score 9/30, ACL 3.4 indicating severe cognitive impairment. Fluctuating pattern of confusion, with VH mostly at night, resting tremors, ?LBD. Monitor renal function, IV fluids, held Lisinopril. 08/06 Improved Cr 1.19, BUN 30. Pt more confused in evening. Seroquel 50mg po BID at 3pm and 8pm. continue aricept. 08/07 decrease seroquel due to over sedation. 08/08 continue tx. avoid oversedation at night Reason for continued inpatient stay Substantial Risk for: inability to function Time Spent With Patient Time: Total time managing care of this patient today ____ minutes.
[2023-08-08] MEDS: Donepezil HCl 5 MG TABLET PO (20:04)
[2023-08-08] MEDS: QUEtiapine Fumarate 25 MG TABLET PO (20:04)
[2023-08-08 20:19] VITALS: BP 189/77; PULSE 82; RESP 18; TEMP 36.6; O2SAT 100
[2023-08-09 08:09] VITALS: BP 113/61; PULSE 97; RESP 17; TEMP 36.7; O2SAT 100
[2023-08-09] MEDS: amLODIPine Besylate 5 MG TABLET PO ×2 (08:11→20:52)
[2023-08-09] MEDS: Folic Acid 1 MG TABLET PO (08:12)
[2023-08-09] MEDS: Ketotifen Fumarate 0.025% Oph 5 ML DRPBTL 1 DROP EYE-BOTH ×2 (08:13→20:17)
[2023-08-09] MEDS: Ipratropium Bromide Nas 0.03 % 30 ML SPRAY 2 SPRAY NOSTRIL-B ×2 (08:13→20:17)
[2023-08-09] MEDS: Acetaminophen 325 MG TABLET 650 MG PO (08:18)
[2023-08-09 10:13] LABS: Alanine Aminotransferase 15 U/L (0-40); Alkaline Phosphatase 80 U/L (39-117); Anion Gap 13 (12-20); Aspartate Amino Transferase 30 U/L (5-37); Bilirubin Total 0.5 mg/dL (0.0-1.0); Blood Urea Nitrogen 22 mg/dL (9-16); Calcium 9.3 mg/dL (8.4-10.2); Carbon Dioxide 25 mmol/L (22-29); Chloride 106 mmol/L (96-108); Creatinine Clr Calc Pharmacy 43.5; Estimated Glomerular Filt Rate 54; Glucose Random 85 mg/dL (60-115); Potassium 3.5 mmol/L (3.3-5.1); Sodium 140 mmol/L (135-145); Total Protein 8.2 g/dL (6.5-8.0)
[2023-08-09 10:36] LABS: COVID-19 Test Negative (Negative); IDNOW Serial# 152EDE1D
[2023-08-09 13:10] LABS: Hematocrit 32.3 % (42.0-52.0); Hemoglobin 10.3 g/dl (14.0-18.0); Imm Gran Abs Auto 0.02 X10*3/uL (0.00-0.03); Imm Gran Pct Auto 0.7 % (0.0-0.4); Lymphocytes Percent Auto 33.8 % (20-40); MANUAL DIFF FLAG SCAN; Mean Corpuscular HGB Conc 31.9 g/dl (31.0-36.0); Mean Corpuscular Hemoglobin 28.7 pg (27.0-33.0); Mean Platelet Volume 8.7 fL (9.4-12.4); Monocytes Absolute Auto 0.8 X10*3/uL (0.1-1.2); Monocytes Percent Auto 29.3 % (2-11); Neutrophils Percent Auto 35.2 % (45-73); Platelet Count 169 X10*3/uL (160-400); Red Blood Count 3.59 X10*6/uL (4.60-5.80); Red Cell Distribution Width 12.6 % (11.0-16.0); Retic HGB Equivalent 30.9 pg (30.0-35.0); SCAN SMEAR FLAG 1; White Blood Count 2.9 X10*3/uL (4.8-10.8)
[2023-08-09 14:30] LABS: SLIDE REVIEW VERIFIED
[2023-08-09 19:53] VITALS: BP 193/75; PULSE 81; RESP 18; TEMP 37.1; O2SAT 100
[2023-08-09] MEDS: QUEtiapine Fumarate 25 MG TABLET PO (20:17)
[2023-08-09] MEDS: Donepezil HCl 5 MG TABLET PO (20:17)
--- NOTE | 2023-08-09 20:34 | HO.PSYCHPN ---
Subjective Subjective Date of Service: 08/09/23 Reason For Visit: Psychosis Subjective Notes: Conditional Voluntary Interim History: Pt slept most of the night. Pt more confused in evening but no agitation noted. He reports doing well. He denies VH- which fluctuates during the day and happen mostly in the evening. Family meeting with his niece, Allegra who is his HCP. We discussed severe cognitive impairment and need for substantial supports in the community, especially due to him becoming more confused in the evening. No behavioral concerns.SBP elevated- restarted lisinopril and increase dose of amlodipine to 10mg Medication Compliance: Yes Review of Systems Review of Systems Pertinent positives and negatives as stated in HPI Mental Status Exam Mental Status Exam Narrative: Appearance: wearing hospital gown, fair hygiene, in NAD Behavior: cooperative Psychomotor: no agitation or retardation noted Speech: mostly clear, mumbles at times, regular rhythm/volume, spontaneous TP: mostly linear TC: feeling better, hoping to go home soon Mood: good Affect: brightens up at times SI: denies HI: denies VH/AH: denies at this time Delusions:no overt Insight/judgment:fair x 2. Memory/cog: alert, oriented to place, month, year and situation. pending MOCA and ACL Diagnostics Vital Signs (24Hr): Vital Signs - 24 hr 08/09/23 08:09 08/09/23 19:53 Temperature 98.1 F 98.8 F Pulse Rate 97 81 Respiratory Rate 17 18 Blood Pressure 113/61 193/75 H Pulse Oximetry 100 100 Oxygen Delivery Method Room Air Room Air BMI result Body Mass Index 22.6 Labs 08/09/23 12:58 08/09/23 09:46 Labs: Laboratory Results - last 48 hr 08/09/23 08/09/23 08/09/23 09:46 10:07 12:58 WBC 2.9 L RBC 3.59 L Hgb 10.3 L Hct 32.3 L MCV 90.0 MCH 28.7 MCHC 31.9 RDW 12.6 Plt Count 169 MPV 8.7 L Immature Gran % (Auto) 0.7 H Neut % (Auto) 35.2 L Lymph % (Auto) 33.8 Webb % (Auto) 29.3 H Eos % (Auto) 1.0 Baso % (Auto) 0.0 Lymph # (Auto) 1.0 L Webb # (Auto) 0.8 Eos # (Auto) 0.0 Baso # (Auto) 0.0 Abs Immat Gran (auto) 0.02 Absolute Neuts (auto) 1.0 L Absolute Nucleated RBC 0.000 Nucleated RBC % (auto) 0.0 Smear Tech's Comments VERIFIED Absolute Retic 0.070 Percent Retic 2.0 H Immature Retic Fraction 4.0 Retic Hgb Equivalent 30.9 Sodium 140 Potassium 3.5 Chloride 106 Carbon Dioxide 25 Anion Gap 13 BUN 22 H Creatinine 1.27 Estim Creat Clear Calc 43.5 Estimated GFR 54 Random Glucose 85 Calcium 9.3 Total Bilirubin 0.5 AST 30 ALT 15 Alkaline Phosphatase 80 Total Protein 8.2 H Albumin 4.0 COVID-19 ([facility]) Negative COVID-19 Clin Com See Note Imaging Radiology Impressions: ITS Impressions Head CT 07/27/23 21:51 IMPRESSION: No acute intracranial process seen. Medications Medications Current Medications Acetaminophen (Acetaminophen 325 Mg Tablet) 650 mg PO Q6H PRN PRN Reason: Headache/Pain Mild Scale (1-3) Last Admin: 08/09/23 08:18 Dose: 650 mg Al Hydroxide/Mg Hydroxide (Magnesium Hydrox/Alum Hydrox 30 Ml Oral.Susp) 30 ml PO Q6H PRN PRN Reason: Heartburn/Nausea Amlodipine Besylate (Amlodipine Besylate 10 Mg Tablet) 10 mg PO DAILY [facility]; Protocol Cyanocobalamin (Cyanocobalamin (Vitamin B-12) 1,000 Mcg/Ml Vial) 1,000 mcg IM Q7D [facility] Stop: 08/25/23 13:16 Last Admin: 08/04/23 14:00 Dose: 1,000 mcg Donepezil HCl (Donepezil Hcl 5 Mg Tablet) 5 mg PO BEDTIME [facility] Last Admin: 08/09/23 20:17 Dose: 5 mg Folic Acid (Folic Acid 1 Mg Tablet) 1 mg PO DAILY [facility] Last Admin: 08/09/23 08:12 Dose: 1 mg Ipratropium [place] (Ipratropium [place] Miguel A 0.03 % 30 Ml [place]) 2 spray NOSTRIL-B BID [facility] Last Admin: 08/09/23 20:17 Dose: 2 spray Ketotifen Fumarate (Ketotifen Fumarate 0.025% Oph 5 Ml Drpbtl) 1 drop EYE-BOTH BID [facility] Last Admin: 01/24/24 20:17 Dose: 1 drop Lisinopril (Lisinopril 40 Mg Tablet) 40 mg PO DAILY [facility]; Protocol Last Admin: 08/05/23 08:41 Dose: Not Given Loratadine (Loratadine 10 Mg Tablet) 10 mg PO DAILY PRN PRN Reason: allergies Magnesium Hydroxide (Milk Of Magnesia 30 Ml Oral.Susp) 30 ml PO DAILY PRN PRN Reason: Constipation Olanzapine (Olanzapine 2.5 Mg Tablet) 2.5 mg PO Q8H PRN PRN Reason: agitation Quetiapine Fumarate (Quetiapine Fumarate 25 Mg Tablet) 25 mg PO BEDTIME [facility] Last Admin: 08/09/23 20:17 Dose: 25 mg Trazodone HCl (Trazodone Hcl 50 Mg Tablet) 50 mg PO BEDTIME PRN PRN Reason: Insomnia Last Admin: 08/09/23 20:19 Dose: 50 mg Allergies Allergies Allergy/AdvReac Type Severity Reaction Status Date / Time No Known Allergies Allergy Verified 07/27/23 21:14 Assessment & Plan Assessment & Plan (1) Major neurocognitive disorder: Status: Acute Code(s): F03.90 - Unspecified dementia, unspecified severity, without behavioral disturbance, psychotic disturbance, mood disturbance, and anxiety Plan Mr. Allen is a 83 year-old male with no prior psych or dementia dx who called 911 reporting seeing a man that disappear under his couch. His Utox was negative. In the ED, pt with some insight that what he saw was not there. He also presented oriented to situation, place, month, year. He did have periods of increase confusion and agitation. We discussed completing MOCA, ACL. Will given B12 and folic acid since in low. R/O neurocognitive disorder causing visual hallucination. PLAN 08/04- low B12 will start cyanocobalamine 1000mcg IM x 4 weeks, then oral. start folic acid 1mg po daily. pending results of MOCA and ACL. did add HIV testing. RPR- negative. 08/05 MOCA score 9/30, ACL 3.4 indicating severe cognitive impairment. Fluctuating pattern of confusion, with VH mostly at night, resting tremors, ?LBD. Monitor renal function, IV fluids, held Lisinopril. 08/06 Improved Cr 1.19, BUN 30. Pt more confused in evening. Seroquel 50mg po BID at 3pm and 8pm. continue aricept. 08/07 decrease seroquel due to over sedation. 08/08 continue tx. avoid oversedation at night 08/09 continue tx. fam meeting discussed dx, severe cognitive impairment. repeat cmp- renal function stable. normocitic anemia,leukopenia of unclear etiology, will consult hematology. Reason for continued inpatient stay Substantial Risk for: inability to function Time Spent With Patient Time: Total time managing care of this patient today ____ minutes.
[2023-08-10 09:03] VITALS: BP 135/69; PULSE 86; RESP 15; TEMP 36.8; O2SAT 100
[2023-08-10] MEDS: Ipratropium Bromide Nas 0.03 % 30 ML SPRAY 2 SPRAY NOSTRIL-B ×2 (09:04→20:30)
[2023-08-10] MEDS: Ketotifen Fumarate 0.025% Oph 5 ML DRPBTL 1 DROP EYE-BOTH ×2 (09:04→20:30)
[2023-08-10] MEDS: lisinopriL 40 MG TABLET PO (09:05)
[2023-08-10] MEDS: amLODIPine Besylate 10 MG TABLET PO (09:05)
[2023-08-10] MEDS: Folic Acid 1 MG TABLET PO (09:05)
[2023-08-10 20:23] VITALS: BP 181/79; PULSE 83; RESP 16; TEMP 36.6; O2SAT 98
[2023-08-10] MEDS: QUEtiapine Fumarate 25 MG TABLET PO (20:29)
[2023-08-10] MEDS: Donepezil HCl 5 MG TABLET PO (20:29)
--- NOTE | 2023-08-10 21:49 | HO.PSYCHPN ---
Subjective Subjective Date of Service: 08/10/23 Reason For Visit: Psychosis Subjective Notes: Conditional Voluntary Interim History: Patient is superficially pleasant when seen starts a rambling story periods of paranoia prior to admission and some paranoid concerns while on the floor. Had some sundowning syndrome last night Medication Compliance: Yes Mental Status Exam Mental Status Exam Narrative: Appearance: wearing hospital gown, fair hygiene, in NAD Behavior: cooperative Psychomotor: no agitation or retardation noted Speech: mostly jaycee TP: Somewhat rambling and repeating TC: feeling better, rambling story about something in his apartment Mood: good Affect: brightens up at times SI: denies HI: denies VH/AH: denies at this time Delusions:no overt Insight/judgment:fair x 2. Memory/cog: alert, oriented to place, month, year and situation. pending MOCA and ACL Diagnostics Vital Signs (24Hr): Vital Signs - 24 hr 08/10/23 09:03 08/10/23 20:23 Temperature 98.2 F 98 F Pulse Rate 86 83 Respiratory Rate 15 16 Blood Pressure 135/69 181/79 H Pulse Oximetry 100 98 Oxygen Delivery Method Room Air Room Air BMI result Body Mass Index 22.6 Labs 08/09/23 12:58 08/09/23 09:46 Labs: Laboratory Results - last 48 hr 08/09/23 08/09/23 08/09/23 09:46 10:07 12:58 WBC 2.9 L RBC 3.59 L Hgb 10.3 L Hct 32.3 L MCV 90.0 MCH 28.7 MCHC 31.9 RDW 12.6 Plt Count 169 MPV 8.7 L Immature Gran % (Auto) 0.7 H Neut % (Auto) 35.2 L Lymph % (Auto) 33.8 [place] % (Auto) 29.3 H Eos % (Auto) 1.0 Baso % (Auto) 0.0 Lymph # (Auto) 1.0 L [place] # (Auto) 0.8 Eos # (Auto) 0.0 Baso # (Auto) 0.0 Abs Immat Gran (auto) 0.02 Absolute Neuts (auto) 1.0 L Absolute Nucleated RBC 0.000 Nucleated RBC % (auto) 0.0 Smear Tech's Comments VERIFIED Absolute Retic 0.070 Percent Retic 2.0 H Immature Retic Fraction 4.0 Retic Hgb Equivalent 30.9 Sodium 140 Potassium 3.5 Chloride 106 Carbon Dioxide 25 Anion Gap 13 BUN 22 H Creatinine 1.27 Estim Creat Clear Calc 43.5 Estimated GFR 54 Random Glucose 85 Calcium 9.3 Total Bilirubin 0.5 AST 30 ALT 15 Alkaline Phosphatase 80 Total Protein 8.2 H Albumin 4.0 COVID-19 ([facility]) Negative COVID-19 Clin Com See Note Imaging Radiology Impressions: ITS Impressions Head CT 07/27/23 21:51 IMPRESSION: No acute intracranial process seen. Medications Medications Current Medications Acetaminophen (Acetaminophen 325 Mg Tablet) 650 mg PO Q6H PRN PRN Reason: Headache/Pain Mild Scale (1-3) Last Admin: 08/09/23 08:18 Dose: 650 mg Al Hydroxide/Mg Hydroxide (Magnesium Hydrox/Alum Hydrox 30 Ml Oral.Susp) 30 ml PO Q6H PRN PRN Reason: Heartburn/Nausea Amlodipine Besylate (Amlodipine Besylate 10 Mg Tablet) 10 mg PO DAILY [facility]; Protocol Last Admin: 08/10/23 09:05 Dose: 10 mg Cyanocobalamin (Cyanocobalamin (Vitamin B-12) 1,000 Mcg/Ml Vial) 1,000 mcg IM Q7D [facility] Stop: 08/25/23 13:16 Last Admin: 08/04/23 14:00 Dose: 1,000 mcg Donepezil HCl (Donepezil Hcl 5 Mg Tablet) 5 mg PO BEDTIME [facility] Last Admin: 08/10/23 20:29 Dose: 5 mg Folic Acid (Folic Acid 1 Mg Tablet) 1 mg PO DAILY [facility] Last Admin: 08/10/23 09:05 Dose: 1 mg Ipratropium [place] (Ipratropium [place] Miguel A 0.03 % 30 Ml [facility]) 2 spray NOSTRIL-B BID [facility] Last Admin: 08/10/23 20:30 Dose: 2 spray Ketotifen Fumarate (Ketotifen Fumarate 0.025% Oph 5 Ml Drpbtl) 1 drop EYE-BOTH BID [facility] Last Admin: 08/10/23 20:30 Dose: 1 drop Lisinopril (Lisinopril 40 Mg Tablet) 40 mg PO DAILY [facility]; Protocol Last Admin: 08/10/23 09:05 Dose: 40 mg Loratadine (Loratadine 10 Mg Tablet) 10 mg PO DAILY PRN PRN Reason: allergies Magnesium Hydroxide (Milk Of Magnesia 30 Ml Oral.Susp) 30 ml PO DAILY PRN PRN Reason: Constipation Olanzapine (Olanzapine 2.5 Mg Tablet) 2.5 mg PO Q8H PRN PRN Reason: agitation Quetiapine Fumarate (Quetiapine Fumarate 25 Mg Tablet) 25 mg PO BEDTIME [facility] Last Admin: 08/10/23 20:29 Dose: 25 mg Trazodone HCl (Trazodone Hcl 50 Mg Tablet) 50 mg PO BEDTIME PRN PRN Reason: Insomnia Last Admin: 08/06/23 22:51 Dose: 50 mg Allergies Allergies Allergy/AdvReac Type Severity Reaction Status Date / Time No Known Allergies Allergy Verified 07/27/23 21:14 Assessment & Plan Assessment & Plan (1) Major neurocognitive disorder: Status: Acute Code(s): F03.90 - Unspecified dementia, unspecified severity, without behavioral disturbance, psychotic disturbance, mood disturbance, and anxiety Plan Mr. Allen is a 83 year-old male with no prior psych or dementia dx who called 911 reporting seeing a man that disappear under his couch. His Utox was negative. In the ED, pt with some insight that what he saw was not there. He also presented oriented to situation, place, month, year. He did have periods of increase confusion and agitation. We discussed completing MOCA, ACL. Will given B12 and folic acid since in low. R/O neurocognitive disorder causing visual hallucination. PLAN 08/04- low B12 will start cyanocobalamine 1000mcg IM x 4 weeks, then oral. start folic acid 1mg po daily. pending results of MOCA and ACL. did add HIV testing. RPR- negative. 08/05 MOCA score 9/30, ACL 3.4 indicating severe cognitive impairment. Fluctuating pattern of confusion, with VH mostly at night, resting tremors, ?LBD. Monitor renal function, IV fluids, held Lisinopril. 08/06 Improved Cr 1.19, BUN 30. Pt more confused in evening. Seroquel 50mg po BID at 3pm and 8pm. continue aricept. 08/07 decrease seroquel due to over sedation. 08/08 continue tx. avoid oversedation at night 08/09 continue tx. fam meeting discussed dx, severe cognitive im pairment. repeat cmp- renal function stable. normocitic a ia,leukopenia of unclear etiology, will consult hematology. Continue plan of care Seroquel Aricept periods of paranoia Reason for continued inpatient stay Substantial Risk for: inability to function and rapid decompensation Time Spent With Patient Time: Total time managing care of this patient today ____ minutes.
[2023-08-11 08:18] VITALS: BP 144/67; PULSE 77; RESP 16; TEMP 36.3; O2SAT 100
[2023-08-11] MEDS: Acetaminophen 325 MG TABLET 650 MG PO ×2 (08:22→16:58)
[2023-08-11] MEDS: lisinopriL 40 MG TABLET PO (08:23)
[2023-08-11] MEDS: Folic Acid 1 MG TABLET PO (08:23)
[2023-08-11] MEDS: amLODIPine Besylate 10 MG TABLET PO (08:23)
[2023-08-11] MEDS: Ketotifen Fumarate 0.025% Oph 5 ML DRPBTL 1 DROP EYE-BOTH ×2 (08:24→20:21)
[2023-08-11] MEDS: Ipratropium Bromide Nas 0.03 % 30 ML SPRAY 2 SPRAY NOSTRIL-B ×2 (08:24→20:21)
--- NOTE | 2023-08-11 09:11 | HO.PSYCHPN ---
Subjective Subjective Date of Service: 08/11/23 Reason For Visit: Psychosis Subjective Notes: Conditional Voluntary Interim History: Pt slept through the night, but tendency to get more confused in the evening. He reports he has leg pain that radiates down. No SI/HI. No overt VH/AH when seen but this seems to fluctuate during the day. Review of Systems Review of Systems Pertinent positives and negatives as stated in HPI Mental Status Exam Mental Status Exam Narrative: Appearance: wearing hospital gown, fair hygiene, in NAD Behavior: cooperative Psychomotor: no agitation or retardation noted Speech: mostly jaycee TP: Somewhat rambling and repeating TC: feeling better, rambling story about something in his apartment Mood: good Affect: brightens up at times SI: denies HI: denies VH/AH: denies at this time Delusions:no overt Insight/judgment:fair x 2. Memory/cog: alert, oriented to place, month, year and situation. pending MOCA and ACL Diagnostics Vital Signs (24Hr): Vital Signs - 24 hr 08/10/23 20:23 08/11/23 08:18 Temperature 98 F 97.4 F Pulse Rate 83 77 Respiratory Rate 16 16 Blood Pressure 181/79 H 144/67 H Pulse Oximetry 98 100 Oxygen Delivery Method Room Air Room Air BMI result Body Mass Index 22.6 Labs 08/09/23 12:58 08/09/23 09:46 Labs: Laboratory Results - last 48 hr 08/09/23 08/09/23 08/09/23 09:46 10:07 12:58 WBC 2.9 L RBC 3.59 L Hgb 10.3 L Hct 32.3 L MCV 90.0 MCH 28.7 MCHC 31.9 RDW 12.6 Plt Count 169 MPV 8.7 L Immature Gran % (Auto) 0.7 H Neut % (Auto) 35.2 L Lymph % (Auto) 33.8 [place] % (Auto) 29.3 H Eos % (Auto) 1.0 Baso % (Auto) 0.0 Lymph # (Auto) 1.0 L [place] # (Auto) 0.8 Eos # (Auto) 0.0 Baso # (Auto) 0.0 Abs Immat Gran (auto) 0.02 Absolute Neuts (auto) 1.0 L Absolute Nucleated RBC 0.000 Nucleated RBC % (auto) 0.0 Smear Tech's Comments VERIFIED Absolute Retic 0.070 Percent Retic 2.0 H Immature Retic Fraction 4.0 Retic Hgb Equivalent 30.9 Sodium 140 Potassium 3.5 Chloride 106 Carbon Dioxide 25 Anion Gap 13 BUN 22 H Creatinine 1.27 Estim Creat Clear Calc 43.5 Estimated GFR 54 Random Glucose 85 Calcium 9.3 Total Bilirubin 0.5 AST 30 ALT 15 Alkaline Phosphatase 80 Total Protein 8.2 H Albumin 4.0 COVID-19 ([facility]) Negative COVID-19 Clin Com See Note Imaging Radiology Impressions: ITS Impressions Head CT 07/27/23 21:51 IMPRESSION: No acute intracranial process seen. Medications Medications Current Medications Acetaminophen (Acetaminophen 325 Mg Tablet) 650 mg PO Q6H PRN PRN Reason: Headache/Pain Mild Scale (1-3) Last Admin: 08/11/23 08:22 Dose: 650 mg Al Hydroxide/Mg Hydroxide (Magnesium Hydrox/Alum Hydrox 30 Ml Oral.Susp) 30 ml PO Q6H PRN PRN Reason: Heartburn/Nausea Amlodipine Besylate (Amlodipine Besylate 10 Mg Tablet) 10 mg PO DAILY [facility]; Protocol Last Admin: 08/11/23 08:23 Dose: 10 mg Cyanocobalamin (Cyanocobalamin (Vitamin B-12) 1,000 Mcg/Ml Vial) 1,000 mcg IM Q7D [facility] Stop: 08/25/23 13:16 Last Admin: 08/04/23 14:00 Dose: 1,000 mcg Donepezil HCl (Donepezil Hcl 5 Mg Tablet) 5 mg PO BEDTIME [facility] Last Admin: 08/10/23 20:29 Dose: 5 mg Folic Acid (Folic Acid 1 Mg Tablet) 1 mg PO DAILY [facility] Last Admin: 08/11/23 08:23 Dose: 1 mg Ipratropium [place] (Ipratropium [place] Miguel A 0.03 % 30 Ml [place]) 2 spray NOSTRIL-B BID [facility] Last Admin: 08/11/23 08:24 Dose: 2 spray Ketotifen Fumarate (Ketotifen Fumarate 0.025% Oph 5 Ml Drpbtl) 1 drop EYE-BOTH BID [facility] Last Admin: 08/11/23 08:24 Dose: 1 drop Lisinopril (Lisinopril 40 Mg Tablet) 40 mg PO DAILY [facility]; Protocol Last Admin: 08/11/23 08:23 Dose: 40 mg Loratadine (Loratadine 10 Mg Tablet) 10 mg PO DAILY PRN PRN Reason: allergies Magnesium Hydroxide (Milk Of Magnesia 30 Ml Oral.Susp) 30 ml PO DAILY PRN PRN Reason: Constipation Olanzapine (Olanzapine 2.5 Mg Tablet) 2.5 mg PO Q8H PRN PRN Reason: agitation Quetiapine Fumarate (Quetiapine Fumarate 25 Mg Tablet) 25 mg PO BEDTIME [facility] Last Admin: 08/10/23 20:29 Dose: 25 mg Trazodone HCl (Trazodone Hcl 50 Mg Tablet) 50 mg PO BEDTIME PRN PRN Reason: Insomnia Last Admin: 08/06/23 22:51 Dose: 50 mg Allergies Allergies Allergy/AdvReac Type Severity Reaction Status Date / Time No Known Allergies Allergy Verified 07/27/23 21:14 Assessment & Plan Assessment & Plan (1) Major neurocognitive disorder: Status: Acute Code(s): F03.90 - Unspecified dementia, unspecified severity, without behavioral disturbance, psychotic disturbance, mood disturbance, and anxiety Plan Mr. Allen is a 83 year-old male with no prior psych or dementia dx who called 911 reporting seeing a man that disappear under his couch. His Utox was negative. In the ED, pt with some insight that what he saw was not there. He also presented oriented to situation, place, month, year. He did have periods of increase confusion and agitation. We discussed completing MOCA, ACL. Will given B12 and folic acid since in low. R/O neurocognitive disorder causing visual hallucination. PLAN 08/04- low B12 will start cyanocobalamine 1000mcg IM x 4 weeks, then oral. start folic acid 1mg po daily. pending results of MOCA and ACL. did add HIV testing. RPR- negative. 08/05 MOCA score 9/30, ACL 3.4 indicating severe cognitive impairment. Fluctuating pattern of confusion, with VH mostly at night, resting tremors, ?LBD. Monitor renal function, IV fluids, held Lisinopril. 08/06 Improved Cr 1.19, BUN 30. Pt more confused in evening. Seroquel 50mg po BID at 3pm and 8pm. continue aricept. 08/07 decrease seroquel due to over sedation. 08/08 continue tx. avoid oversedation at night 08/09 continue tx. fam meeting discussed dx, severe cognitive im pairment. repeat cmp- renal function stable. normocitic a ia,leukopenia of unclear etiology, will consult hematology. 08/10 Continue plan of care Seroquel Aricept periods of paranoia 08/11 continue tx. Reason for continued inpatient stay Substantial Risk for: inability to function Time Spent With Patient Time: Total time managing care of this patient today ____ minutes.
[2023-08-11] MEDS: Cyanocobalamin (Vitamin B-12) 1,000 MCG/ML VIAL 1000 MCG IM (12:34)
--- NOTE | 2023-08-11 15:28 | PM.HEMONCCN ---
Subjective - Subjective Chief complaint: None Patient: new to practice Consult date: 08/11/23 Primary Care Provider: Unknown Physician HPI - Consult Narrative Reason for consult: Leukopenia Narrative: Juaquin Allen is a 83 year old male was [facility]inations. Patient stated that there was a person in his apartment that would not leave his house and he also noticed birds in his apartment and therefore he called the police. He states that he lives alone at home and does not have any medical problems. He has never been told of abnormal blood counts. He says he has a primary care physician affiliated with [facility]. He denies history of hepatitis or HIV. He says he drinks alcohol only occasionally. No history of any recent infections. He says he is being given medications every night and he does not want to take them PMFSH Social History: Social History (Last Reviewed 07/28/23 @ 00:33 by Alejandra Butt MD) Living Situation History: Household Members: None Housing: Apartment Do you presently have visiting nurse or other home services: No Alcohol History: Unable to assess alcohol history related to: Unknown Alcohol History Details: 1. How often do you have a drink containing alcohol?: b. Monthly or less 2. How many drinks containing alcohol do you have on a typical day when you are drinking?: a. 1 or 2 3. How often do you have six or more drinks on one occasion?: a. Never AUDIT-C Alcohol total score: 1 Last drink: Unknown Currently Displaying Signs/Symptoms of Alcohol Withdrawal: No Tobacco History: Patient Tobacco Use Status: Never used Tobacco Smoked in Last 30 Days: No e-Cigarette/Vaping Use: Never Used Patient Interested in Nicotine Replacement: No Patient Given Instructions on How to Stop Smoking: No Second Hand Smoke Exposure: No Substance Use History: Use of substances other than those prescribed or required for medical reasons: No Currently Displaying Signs/Symptoms of Drug Intoxication Withdrawal: No Any prior treatment program specific to substance use: No Domestic Abuse History: Have you been hit, kicked, punched, or otherwise hurt by someone within the past year? If so, by whom?: No Do you feel safe in your current relationship?: No Current Relationship Is there a partner from a previous relationship who is making you feel unsafe now?: No Are you made to feel afraid or neglected: No Advance Directives: Advance Directives: Yes Advance Directives Information Provided: Yes Advance Directives on File: Yes Advance Directives Date on File: 07/28/23 Healthcare Proxy: Yes Healthcare Proxy comment: Allegra Jackson (niece) [phone] Guardian: No Homicidal Assessment: Do you have thoughts of harming others: None Do you have a plan to hurt others: No Plan Nutrition Assessment: Recently lost weight without trying: No Eating poorly because of decreased appetite: No Nutrition Risks: No Nutritional Risk Poor oral hygiene: No Occupation Assessmet: service: No Sex/Gender Assessment: Sexual orientation: Straight/Heterosexual Home Medications and Allergies Current Medications: Current Medications Acetaminophen (Acetaminophen 325 Mg Tablet) 650 mg PO Q6H PRN PRN Reason: Headache/Pain Mild Scale (1-3) Last Admin: 08/11/23 08:22 Dose: 650 mg Al Hydroxide/Mg Hydroxide (Magnesium Hydrox/Alum Hydrox 30 Ml Oral.Susp) 30 ml PO Q6H PRN PRN Reason: Heartburn/Nausea Amlodipine Besylate (Amlodipine Besylate 10 Mg Tablet) 10 mg PO DAILY [facility]; Protocol Last Admin: 08/11/23 08:23 Dose: 10 mg Cyanocobalamin (Cyanocobalamin (Vitamin B-12) 1,000 Mcg/Ml Vial) 1,000 mcg IM Q7D [facility] Stop: 08/25/23 13:16 Last Admin: 08/11/23 12:34 Dose: 1,000 mcg Donepezil HCl (Donepezil Hcl 5 Mg Tablet) 5 mg PO BEDTIME [facility] Last Admin: 08/10/23 20:29 Dose: 5 mg Folic Acid (Folic Acid 1 Mg Tablet) 1 mg PO DAILY [facility] Last Admin: 08/11/23 08:23 Dose: 1 mg Ipratropium [place] (Ipratropium [place] Miguel A 0.03 % 30 Ml [place]) 2 spray NOSTRIL-B BID [facility] Last Admin: 08/11/23 08:24 Dose: 2 spray Ketotifen Fumarate (Ketotifen Fumarate 0.025% Oph 5 Ml Drpbtl) 1 drop EYE-BOTH BID [facility] Last Admin: 08/11/23 08:24 Dose: 1 drop Lisinopril (Lisinopril 40 Mg Tablet) 40 mg PO DAILY [facility]; Protocol Last Admin: 08/11/23 08:23 Dose: 40 mg Loratadine (Loratadine 10 Mg Tablet) 10 mg PO DAILY PRN PRN Reason: allergies Magnesium Hydroxide (Milk Of Magnesia 30 Ml Oral.Susp) 30 ml PO DAILY PRN PRN Reason: Constipation Olanzapine (Olanzapine 2.5 Mg Tablet) 2.5 mg PO Q8H PRN PRN Reason: agitation Quetiapine Fumarate (Quetiapine Fumarate 25 Mg Tablet) 25 mg PO BEDTIME [facility] Last Admin: 08/10/23 20:29 Dose: 25 mg Trazodone HCl (Trazodone Hcl 50 Mg Tablet) 50 mg PO BEDTIME PRN PRN Reason: Insomnia Last Admin: 08/06/23 22:51 Dose: 50 mg Home Medications Medication Instructions Recorded Confirmed Type acetaminophen 325 mg tablet 650 mg PO Q6H PRN pain 07/28/23 07/28/23 History amlodipine 5 mg tablet 5 mg PO DAILY 07/28/23 07/28/23 History cetirizine 10 mg tablet 10 mg PO DAILY PRN allergies 07/28/23 07/28/23 History ipratropium bromide 21 mcg (0.03 2 spray intranasal BID 07/28/23 07/28/23 History %) nasal spray ketotifen fumarate 0.025 % (0.035 1 drp ophthalmic (eye) BID 07/28/23 07/28/23 History %) eye drops (Eye Itch Relief) lisinopril 40 mg tablet 40 mg PO DAILY 07/28/23 07/28/23 History Allergies Allergy/AdvReac Type Severity Reaction Status Date / Time No Known Allergies Allergy Verified 07/27/23 21:14 Physical Exam Vital signs: Vital Signs Temp 97.4 F 08/11/23 08:18 Pulse 77 08/11/23 08:18 Resp 16 08/11/23 08:18 BP 144/67 H 08/11/23 08:18 Pulse Ox 100 08/11/23 08:18 O2 Del Method Room Air 08/11/23 08:18 Weight 67.5 kg - Constitutional Present: no acute distress, average body habitus - Routine HEENT Exam Head: Present: normal inspection - Routine Neck Exam Present: supple. Absent: lymphadenopathy - Routine Respiratory Exam Present: CTAB - Routine Cardiovascular Exam Cardiovascular: Present: S1, S2 - Routine Abdominal Exam Present: soft - Routine Extremities Exam Present: pulses intact. Absent: pedal edema - Routine Skin Exam Present: intact - Routine Neurological Exam Present: alert Hem/Onc Consult Result - Labs CBC & Chem 7: 08/09/23 12:58 08/09/23 09:46 Assessment and Plan Patient Active problem list reviewed?: Yes (1) Leucopenia Status: Chronic Assessment and plan: 1. This is a 83-year-old black male noted to have slight acute worsening of chronic leukopenia. 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 On recent blood work he was noticed to have WBC count under 3 K and normocytic anemia. He was noted to have folic acid deficiency and low vitamin B12 as well. He was noted to have acute renal insufficiency when he was admitted on 08/04/2023. His kidney functions have returned to baseline after IV hydration. 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 Acute worsening could be related to nutritional/vitamin deficiency. He does not appear to have any risk factors for hepatitis, HIV screen was negative. He does not appear to have been on medications at home that would affect his white count. He has been started on vitamin B12 and folic acid supplementation. He has slightly elevate protein levels, submit SPEP/ serum immunofixation. Underlying primary bone marrow disorder such as plasma cell dyscrasia/lymphoma is a possibility. I thank you for this consultation. - Time Spent With Patient Time Spent with Patient (in minutes): 15
[2023-08-11 15:52] VITALS: BMI 23.7
[2023-08-11 16:44] LABS: Lactate Dehydrogenase 184 U/L (118-273)
[2023-08-11 19:45] VITALS: BP 144/63; PULSE 82; RESP 16; TEMP 36.6; O2SAT 97
[2023-08-11] MEDS: Donepezil HCl 5 MG TABLET PO (20:22)
[2023-08-11] MEDS: QUEtiapine Fumarate 25 MG TABLET PO (20:22)
[2023-08-12] MEDS: Acetaminophen 325 MG TABLET 650 MG PO ×2 (01:43→08:54)
[2023-08-12] MEDS: traZODone HCL 50 MG TABLET PO (01:43)
[2023-08-12 08:00] VITALS: BP 172/73; PULSE 75; RESP 18; TEMP 36.2; O2SAT 100
[2023-08-12] MEDS: Folic Acid 1 MG TABLET PO (08:53)
[2023-08-12] MEDS: amLODIPine Besylate 10 MG TABLET PO (08:54)
[2023-08-12] MEDS: lisinopriL 40 MG TABLET PO (08:54)
[2023-08-12] MEDS: Ipratropium Bromide Nas 0.03 % 30 ML SPRAY 2 SPRAY NOSTRIL-B ×2 (08:57→20:20)
[2023-08-12] MEDS: Ketotifen Fumarate 0.025% Oph 5 ML DRPBTL 1 DROP EYE-BOTH ×2 (08:58→20:20)
[2023-08-12 11:00] VITALS: BP 138/64; PULSE 68; RESP 18
[2023-08-12] MEDS: Lidocaine 4 % Patch ADH..PATCH 1 PATCH TRANSDERMA (15:00)
--- NOTE | 2023-08-12 17:52 | HO.PSYCHPN ---
Subjective Subjective Date of Service: 08/12/23 Reason For Visit: Psychosis Interim History: Patient cooperative with treatment. He reports he has been having pain on the side of his hip radiating to the leg. No SI/HI. No overt VH/AH when seen but this seems to fluctuate during the day. Review of Systems Review of Systems Pertinent positives and negatives as stated in HPI Mental Status Exam Mental Status Exam Narrative: Appearance: wearing hospital gown, fair hygiene, in NAD Behavior: cooperative Psychomotor: no agitation or retardation noted Speech: mostly jaycee TP: Somewhat rambling and repeating TC: feeling better, rambling story about something in his apartment Mood: good Affect: brightens up at times SI: denies HI: denies VH/AH: denies at this time Delusions:no overt Insight/judgment:fair x 2. Memory/cog: alert, oriented to place, month, year and situation. pending MOCA and ACL Diagnostics Vital Signs (24Hr): Vital Signs - 24 hr 08/11/23 19:45 08/12/23 08:00 08/12/23 11:00 Temperature 97.9 F 97.1 F Pulse Rate 82 75 68 Respiratory Rate 16 18 18 Blood Pressure 144/63 H 172/73 H 138/64 Pulse Oximetry 97 100 Oxygen Delivery Method Room Air Room Air BMI result Body Mass Index 23.7 Labs 08/09/23 12:58 08/09/23 09:46 Labs: Laboratory Results - last 48 hr 08/11/23 16:23 Lactate Dehydrogenase 184 Imaging Radiology Impressions: ITS Impressions Head CT 07/27/23 21:51 IMPRESSION: No acute intracranial process seen. Medications Medications Current Medications Acetaminophen (Acetaminophen 325 Mg Tablet) 650 mg PO Q6H PRN PRN Reason: Headache/Pain Mild Scale (1-3) Last Admin: 08/12/23 08:54 Dose: 650 mg Al Hydroxide/Mg Hydroxide (Magnesium Hydrox/Alum Hydrox 30 Ml Oral.Susp) 30 ml PO Q6H PRN PRN Reason: Heartburn/Nausea Amlodipine Besylate (Amlodipine Besylate 10 Mg Tablet) 10 mg PO DAILY [facility]; Protocol Last Admin: 08/12/23 08:54 Dose: 10 mg Cyanocobalamin (Cyanocobalamin (Vitamin B-12) 1,000 Mcg/Ml Vial) 1,000 mcg IM Q7D [facility] Stop: 08/25/23 13:16 Last Admin: 08/11/23 12:34 Dose: 1,000 mcg Donepezil HCl (Donepezil Hcl 5 Mg Tablet) 5 mg PO BEDTIME [facility] Last Admin: 08/11/23 20:22 Dose: 5 mg Folic Acid (Folic Acid 1 Mg Tablet) 1 mg PO DAILY [facility] Last Admin: 08/12/23 08:53 Dose: 1 mg Ipratropium [place] (Ipratropium [place] Miguel A 0.03 % 30 Ml [place]) 2 spray NOSTRIL-B BID [facility] Last Admin: 08/12/23 08:57 Dose: 2 spray Ketotifen Fumarate (Ketotifen Fumarate 0.025% Oph 5 Ml Drpbtl) 1 drop EYE-BOTH BID [facility] Last Admin: 08/12/23 08:58 Dose: 1 drop Lidocaine (Lidocaine 4 % Patch Adh..Patch) 1 patch TRANSDERMA DAILY [facility]; Protocol Last Admin: 08/12/23 15:00 Dose: 1 patch Lisinopril (Lisinopril 40 Mg Tablet) 40 mg PO DAILY [facility]; Protocol Last Admin: 08/12/23 08:54 Dose: 40 mg Loratadine (Loratadine 10 Mg Tablet) 10 mg PO DAILY PRN PRN Reason: allergies Magnesium Hydroxide (Milk Of Magnesia 30 Ml Oral.Susp) 30 ml PO DAILY PRN PRN Reason: Constipation Olanzapine (Olanzapine 2.5 Mg Tablet) 2.5 mg PO Q8H PRN PRN Reason: agitation Quetiapine Fumarate (Quetiapine Fumarate 25 Mg Tablet) 25 mg PO BEDTIME [facility] Last Admin: 08/11/23 20:22 Dose: 25 mg Trazodone HCl (Trazodone Hcl 50 Mg Tablet) 50 mg PO BEDTIME PRN PRN Reason: Insomnia Last Admin: 08/12/23 01:43 Dose: 50 mg Allergies Allergies Allergy/AdvReac Type Severity Reaction Status Date / Time No Known Allergies Allergy Verified 07/27/23 21:14 Assessment & Plan Assessment & Plan (1) Major neurocognitive disorder: Status: Acute Code(s): F03.90 - Unspecified dementia, unspecified severity, without behavioral disturbance, psychotic disturbance, mood disturbance, and anxiety Plan Mr. Allen is a 83 year-old male with no prior psych or dementia dx who called 911 reporting seeing a man that disappear under his couch. His Utox was negative. In the ED, pt with some insight that what he saw was not there. He also presented oriented to situation, place, month, year. He did have periods of increase confusion and agitation. We discussed completing MOCA, ACL. Will given B12 and folic acid since in low. R/O neurocognitive disorder causing visual hallucination. PLAN 08/04- low B12 will start cyanocobalamine 1000mcg IM x 4 weeks, then oral. start folic acid 1mg po daily. pending results of MOCA and ACL. did add HIV testing. RPR- negative. 08/05 MOCA score 9/30, ACL 3.4 indicating severe cognitive impairment. Fluctuating pattern of confusion, with VH mostly at night, resting tremors, ?LBD. Monitor renal function, IV fluids, held Lisinopril. 08/06 Improved Cr 1.19, BUN 30. Pt more confused in evening. Seroquel 50mg po BID at 3pm and 8pm. continue aricept. 08/07 decrease seroquel due to over sedation. 08/08 continue tx. avoid oversedation at night 08/09 continue tx. fam meeting discussed dx, severe cognitive im pairment. repeat cmp- renal function stable. normocitic a ia,leukopenia of unclear etiology, will consult hematology. 08/10 Continue plan of care Seroquel Aricept periods of paranoia 08/11 continue tx. 08/12: Lidocaine patch to the left leg. Continue current management and treatment plan. Reason for continued inpatient stay Substantial Risk for: inability to function and rapid decompensation Time Spent With Patient Time: Total time managing care of this patient today ____ minutes.
[2023-08-12 20:00] VITALS: BP 129/61; PULSE 81; RESP 18; TEMP 36.4; O2SAT 100
[2023-08-12] MEDS: QUEtiapine Fumarate 25 MG TABLET PO (20:13)
[2023-08-12] MEDS: Donepezil HCl 5 MG TABLET PO (20:13)
[2023-08-13 09:25] VITALS: BP 138/66; PULSE 78; RESP 18; TEMP 36.8; O2SAT 99
[2023-08-13] MEDS: amLODIPine Besylate 10 MG TABLET PO (09:42)
[2023-08-13] MEDS: Ketotifen Fumarate 0.025% Oph 5 ML DRPBTL 1 DROP EYE-BOTH ×2 (09:42→20:34)
[2023-08-13] MEDS: Lidocaine 4 % Patch ADH..PATCH 1 PATCH TRANSDERMA (09:42)
[2023-08-13] MEDS: lisinopriL 40 MG TABLET PO (09:42)
[2023-08-13] MEDS: Ipratropium Bromide Nas 0.03 % 30 ML SPRAY 2 SPRAY NOSTRIL-B ×2 (09:42→20:34)
[2023-08-13] MEDS: Folic Acid 1 MG TABLET PO (09:42)
--- NOTE | 2023-08-13 16:58 | P.PNPSI_ITS ---
Subjective Subjective Date of Service: 08/13/23 Reason For Visit: Psychosis Interim History: Patient cooperative with treatment. He reports the Lidocaine patch helped his hip pain. No SI/HI. No overt VH/AH when seen but this seems to fluctuate during the day. Pleasant and polite. Review of Systems Review of Systems Pertinent positives and negatives as stated in HPI Mental Status Exam Mental Status Exam Narrative: Appearance: wearing hospital gown, fair hygiene, in NAD Behavior: cooperative Psychomotor: no agitation or retardation noted Speech: mostly jaycee TP: Somewhat rambling and repeating TC: feeling better, rambling story about something in his apartment Mood: good Affect: brightens up at times SI: denies HI: denies VH/AH: denies at this time Delusions:no overt Insight/judgment:fair x 2. Memory/cog: alert, oriented to place, month, year and situation. pending MOCA and ACL Diagnostics Vital Signs (24Hr): Vital Signs - 24 hr 08/12/23 20:00 08/13/23 09:25 Temperature 97.6 F 98.2 F Pulse Rate 81 78 Respiratory Rate 18 18 Blood Pressure 129/61 138/66 Pulse Oximetry 100 99 Oxygen Delivery Method Room Air Room Air BMI result Body Mass Index 23.7 Labs 08/09/23 12:58 08/09/23 09:46 Imaging Radiology Impressions: [facility] Impressions Head CT 07/27/23 21:51 IMPRESSION: No acute intracranial process seen. Medications Medications Current Medications Acetaminophen (Acetaminophen 325 Mg Tablet) 650 mg PO Q6H PRN PRN Reason: Headache/Pain Mild Scale (1-3) Last Admin: 08/12/23 08:54 Dose: 650 mg Al Hydroxide/Mg Hydroxide (Magnesium Hydrox/Alum Hydrox 30 Ml Oral.Susp) 30 ml PO Q6H PRN PRN Reason: Heartburn/Nausea Amlodipine Besylate (Amlodipine Besylate 10 Mg Tablet) 10 mg PO DAILY [facility]; Protocol Last Admin: 08/13/23 09:42 Dose: 10 mg Cyanocobalamin (Cyanocobalamin (Vitamin B-12) 1,000 Mcg/Ml Vial) 1,000 mcg IM Q7D [facility] Stop: 08/25/23 13:16 Last Admin: 08/11/23 12:34 Dose: 1,000 mcg Donepezil HCl (Donepezil Hcl 5 Mg Tablet) 5 mg PO BEDTIME [facility] Last Admin: 08/12/23 20:13 Dose: 5 mg Folic Acid (Folic Acid 1 Mg Tablet) 1 mg PO DAILY [facility] Last Admin: 08/13/23 09:42 Dose: [address] [place] (Ipratropium [place] Miguel A 0.03 % 30 Ml [place]) 2 spray NOSTRIL-B BID [facility] Last Admin: 08/13/23 09:42 Dose: 2 spray Ketotifen Fumarate (Ketotifen Fumarate 0.025% Oph 5 Ml Drpbtl) 1 drop EYE-BOTH BID [facility] Last Admin: 08/13/23 09:42 Dose: 1 drop Lidocaine (Lidocaine 4 % Patch Adh..Patch) 1 patch TRANSDERMA DAILY [facility]; Protocol Last Admin: 08/13/23 09:42 Dose: 1 patch Lisinopril (Lisinopril 40 Mg Tablet) 40 mg PO DAILY [facility]; Protocol Last Admin: 08/13/23 09:42 Dose: 40 mg Loratadine (Loratadine 10 Mg Tablet) 10 mg PO DAILY PRN PRN Reason: allergies Magnesium Hydroxide (Milk Of Magnesia 30 Ml Oral.Susp) 30 ml PO DAILY PRN PRN Reason: Constipation Olanzapine (Olanzapine 2.5 Mg Tablet) 2.5 mg PO Q8H PRN PRN Reason: agitation Quetiapine Fumarate (Quetiapine Fumarate 25 Mg Tablet) 25 mg PO BEDTIME [facility] Last Admin: 08/12/23 20:13 Dose: 25 mg Trazodone HCl (Trazodone Hcl 50 Mg Tablet) 50 mg PO BEDTIME PRN PRN Reason: Insomnia Last Admin: 08/12/23 01:43 Dose: 50 mg Allergies Allergies Allergy/AdvReac Type Severity Reaction Status Date / Time No Known Allergies Allergy Verified 07/27/23 21:14 Assessment & Plan Assessment & Plan (1) Major neurocognitive disorder: Status: Acute Code(s): F03.90 - Unspecified dementia, unspecified severity, without behavioral disturbance, psychotic disturbance, mood disturbance, and anxiety Plan Mr. Allen is a 83 year-old male with no prior psych or dementia dx who called 911 reporting seeing a man that disappear under his couch. His Utox was negative. In the ED, pt with some insight that what he saw was not there. He also presented oriented to situation, place, month, year. He did have periods of increase confusion and agitation. We discussed completing MOCA, ACL. Will given B12 and folic acid since in low. R/O neurocognitive disorder causing visual hallucination. PLAN 08/04- low B12 will start cyanocobalamine 1000mcg IM x 4 weeks, then oral. start folic acid 1mg po daily. pending results of MOCA and ACL. did add HIV testing. RPR- negative. 08/05 MOCA score 9/30, ACL 3.4 indicating severe cognitive impairment. Fluctuating pattern of confusion, with VH mostly at night, resting tremors, ?LBD. Monitor renal function, IV fluids, held Lisinopril. 08/06 Improved Cr 1.19, BUN 30. Pt more confused in evening. Seroquel 50mg po BID at 3pm and 8pm. continue aricept. 08/07 decrease seroquel due to over sedation. 08/08 continue tx. avoid oversedation at night 08/09 continue tx. fam meeting discussed dx, severe cognitive im pairment. repeat cmp- renal function stable. normocitic a ia,leukopenia of unclear etiology, will consult hematology. 08/10 Continue plan of care Seroquel Aricept periods of paranoia 08/11 continue tx. 08/12: Lidocaine patch to the left leg. Continue current management and treatment plan. 08/13: Continue current management and treatment plan. Reason for continued inpatient stay Substantial Risk for: inability to function and rapid decompensation Time Spent With Patient Time: Total time managing care of this patient today ____ minutes.
[2023-08-13 19:35] VITALS: BP 162/70; PULSE 96; RESP 18; TEMP 37.2; O2SAT 99
[2023-08-13] MEDS: traZODone HCL 50 MG TABLET PO (20:33)
[2023-08-13] MEDS: Acetaminophen 325 MG TABLET 650 MG PO (20:33)
[2023-08-13] MEDS: Donepezil HCl 5 MG TABLET PO (20:33)
[2023-08-13] MEDS: QUEtiapine Fumarate 25 MG TABLET PO (20:33)
[2023-08-14 08:00] VITALS: BP 159/70; PULSE 75; RESP 18; TEMP 36.9; O2SAT 100
[2023-08-14] MEDS: lisinopriL 40 MG TABLET PO (08:55)
[2023-08-14] MEDS: amLODIPine Besylate 10 MG TABLET PO (08:55)
[2023-08-14] MEDS: Folic Acid 1 MG TABLET PO (08:55)
[2023-08-14] MEDS: Ipratropium Bromide Nas 0.03 % 30 ML SPRAY 2 SPRAY NOSTRIL-B ×2 (08:56→21:30)
[2023-08-14] MEDS: Ketotifen Fumarate 0.025% Oph 5 ML DRPBTL 1 DROP EYE-BOTH ×2 (08:56→21:30)
[2023-08-14] MEDS: Lidocaine 4 % Patch ADH..PATCH 1 PATCH TRANSDERMA (08:56)
[2023-08-14] MEDS: Acetaminophen 325 MG TABLET 650 MG PO (13:58)
--- NOTE | 2023-08-14 17:26 | HO.PSYCHPN ---
Subjective Subjective Date of Service: 08/14/23 Reason For Visit: Psychosis Subjective Notes: Conditional Voluntary Healthcare Proxy: Yes Interim History: Pt slept through the night. He has been visible on the unit. No behavioral concerns. Pt taking medications as prescribed. BP has been slightly elevated currently on both amlodipine and lisinopril. 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 Diagnostics Vital Signs (24Hr): Vital Signs - 24 hr 08/13/23 19:35 08/14/23 08:00 Temperature 98.9 F 98.5 F Pulse Rate 96 75 Respiratory Rate 18 18 Blood Pressure 162/70 H 159/70 H Pulse Oximetry 99 100 Oxygen Delivery Method Room Air Room Air BMI result Body Mass Index 23.7 Labs 08/09/23 12:58 08/09/23 09:46 Imaging Radiology Impressions: ITS Impressions Head CT 07/27/23 21:51 IMPRESSION: No acute intracranial process seen. Medications Medications Current Medications Acetaminophen (Acetaminophen 325 Mg Tablet) 650 mg PO Q6H PRN PRN Reason: Headache/Pain Mild Scale (1-3) Last Admin: 08/14/23 13:58 Dose: 650 mg Al Hydroxide/Mg Hydroxide (Magnesium Hydrox/Alum Hydrox 30 Ml Oral.Susp) 30 ml PO Q6H PRN PRN Reason: Heartburn/Nausea Amlodipine Besylate (Amlodipine Besylate 10 Mg Tablet) 10 mg PO DAILY [facility]; Protocol Last Admin: 08/14/23 08:55 Dose: 10 mg Cyanocobalamin (Cyanocobalamin (Vitamin B-12) 1,000 Mcg/Ml Vial) 1,000 mcg IM Q7D [facility] Stop: 08/25/23 13:16 Last Admin: 08/11/23 12:34 Dose: 1,000 mcg Donepezil HCl (Donepezil Hcl 5 Mg Tablet) 5 mg PO BEDTIME [facility] Last Admin: 08/13/23 20:33 Dose: 5 mg Folic Acid (Folic Acid 1 Mg Tablet) 1 mg PO DAILY [facility] Last Admin: 08/14/23 08:55 Dose: 1 mg Ipratropium [place] (Ipratropium [place] Miguel A 0.03 % 30 Ml [place]) 2 spray NOSTRIL-B BID [facility] Last Admin: 08/14/23 08:56 Dose: 2 spray Ketotifen Fumarate (Ketotifen Fumarate 0.025% Oph 5 Ml Drpbtl) 1 drop EYE-BOTH BID [facility] Last Admin: 08/14/23 08:56 Dose: 1 drop Lidocaine (Lidocaine 4 % Patch Adh..Patch) 1 patch TRANSDERMA DAILY [facility]; Protocol Last Admin: 08/14/23 08:56 Dose: 1 patch Lisinopril (Lisinopril 40 Mg Tablet) 40 mg PO DAILY [facility]; Protocol Last Admin: 08/14/23 08:55 Dose: 40 mg Loratadine (Loratadine 10 Mg Tablet) 10 mg PO DAILY PRN PRN Reason: allergies Magnesium Hydroxide (Milk Of Magnesia 30 Ml Oral.Susp) 30 ml PO DAILY PRN PRN Reason: Constipation Olanzapine (Olanzapine 2.5 Mg Tablet) 2.5 mg PO Q8H PRN PRN Reason: agitation Quetiapine Fumarate (Quetiapine Fumarate 25 Mg Tablet) 25 mg PO BEDTIME [facility] Last Admin: 08/13/23 20:33 Dose: 25 mg Trazodone HCl (Trazodone Hcl 50 Mg Tablet) 50 mg PO BEDTIME PRN PRN Reason: Insomnia Last Admin: 08/13/23 20:33 Dose: 50 mg Allergies Allergies Allergy/AdvReac Type Severity Reaction Status Date / Time No Known Allergies Allergy Verified 07/27/23 21:14 Assessment & Plan Assessment & Plan (1) Major neurocognitive disorder: Status: Acute Code(s): F03.90 - Unspecified dementia, unspecified severity, without behavioral disturbance, psychotic disturbance, mood disturbance, and anxiety Plan Mr. Allen is a 83 year-old male with no prior psych or dementia dx who called 911 reporting seeing a man that disappear under his couch. His Utox was negative. In the ED, pt with some insight that what he saw was not there. He also presented oriented to situation, place, month, year. He did have periods of increase confusion and agitation. We discussed completing MOCA, ACL. Will given B12 and folic acid since in low. R/O neurocognitive disorder causing visual hallucination. PLAN 08/04- low B12 will start cyanocobalamine 1000mcg IM x 4 weeks, then oral. start folic acid 1mg po daily. pending results of MOCA and ACL. did add HIV testing. RPR- negative. 08/05 MOCA score 9/30, ACL 3.4 indicating severe cognitive impairment. Fluctuating pattern of confusion, with VH mostly at night, resting tremors, ?LBD. Monitor renal function, IV fluids, held Lisinopril. 08/06 Improved Cr 1.19, BUN 30. Pt more confused in evening. Seroquel 50mg po BID at 3pm and 8pm. continue aricept. 08/07 decrease seroquel due to over sedation. 08/08 continue tx. avoid oversedation at night 08/09 continue tx. fam meeting discussed dx, severe cognitive im pairment. repeat cmp- renal function stable. normocitic a ia,leukopenia of unclear etiology, will consult hematology. 08/10 Continue plan of care Seroquel Aricept periods of paranoia 08/11 continue tx. 08/12: Lidocaine patch to the left leg. Continue current management and treatment plan. 08/13: Continue current management and treatment plan. 08/14 continue tx. Reason for continued inpatient stay Substantial Risk for: inability to function Time Spent With Patient Time: Total time managing care of this patient today ____ minutes.
[2023-08-14 18:00] VITALS: BP 150/67; PULSE 92; RESP 18; TEMP 36.7; O2SAT 100
[2023-08-14] MEDS: QUEtiapine Fumarate 25 MG TABLET PO (21:30)
[2023-08-15 06:00] VITALS: BP 148/76; PULSE 90; TEMP 37; O2SAT 98
--- NOTE | 2023-08-15 10:39 | HO.PSYCHPN ---
Subjective Subjective Date of Service: 08/15/23 Reason For Visit: Psychosis Subjective Notes: Conditional Voluntary Healthcare Proxy: Yes Interim History: Pt slept through the night. He has been visible on the unit. No behavioral concerns. Pt taking medications as prescribed.He was confused as to who this life insurance underwriter is. He is looking forward to be discharged. He denied VH/AH when he met with this life insurance underwriter, he did not appear internally preoccupied. Review of Systems Review of Systems Pertinent positives and negatives as stated in HPI Mental Status Exam Mental Status Exam Narrative: Appearance: wearing hospital gown, fair hygiene, in NAD Behavior: cooperative Psychomotor: no agitation or retardation noted Speech: mostly jaycee TP: Somewhat rambling and repeating TC: feeling better, rambling story about something in his apartment Mood: good Affect: brightens up at times SI: denies HI: denies VH/AH: denies at this time Delusions:no overt Insight/judgment:fair x 2. Memory/cog: alert, oriented to place, month, year and situation. pending MOCA and ACL Diagnostics Vital Signs (24Hr): Vital Signs - 24 hr 08/14/23 18:00 Temperature 98.1 F Pulse Rate 92 Respiratory Rate 18 Blood Pressure 150/67 H Pulse Oximetry 100 Oxygen Delivery Method Room Air BMI result Body Mass Index 23.7 Labs 08/09/23 12:58 08/09/23 09:46 Imaging Radiology Impressions: ITS Impressions Head CT 07/27/23 21:51 IMPRESSION: No acute intracranial process seen. Medications Medications Current Medications Acetaminophen (Acetaminophen 325 Mg Tablet) 650 mg PO Q6H PRN PRN Reason: Headache/Pain Mild Scale (1-3) Last Admin: 08/14/23 13:58 Dose: 650 mg Al Hydroxide/Mg Hydroxide (Magnesium Hydrox/Alum Hydrox 30 Ml Oral.Susp) 30 ml PO Q6H PRN PRN Reason: Heartburn/Nausea Amlodipine Besylate (Amlodipine Besylate 10 Mg Tablet) 10 mg PO DAILY [facility]; Protocol Last Admin: 08/14/23 08:55 Dose: 10 mg Cyanocobalamin (Cyanocobalamin (Vitamin B-12) 1,000 Mcg/Ml Vial) 1,000 mcg IM Q7D [facility] Stop: 08/25/23 13:16 Last Admin: 08/11/23 12:34 Dose: 1,000 mcg Donepezil HCl (Donepezil Hcl 5 Mg Tablet) 5 mg PO BEDTIME [facility] Last Admin: 08/14/23 21:33 Dose: Not Given Folic Acid (Folic Acid 1 Mg Tablet) 1 mg PO DAILY [facility] Last Admin: 08/14/23 08:55 Dose: 1 mg Ipratropium [place] (Ipratropium [place] Miguel A 0.03 % 30 Ml [place]) 2 spray NOSTRIL-B BID [facility] Last Admin: 08/14/23 21:30 Dose: 2 spray Ketotifen Fumarate (Ketotifen Fumarate 0.025% Oph 5 Ml Drpbtl) 1 drop EYE-BOTH BID [facility] Last Admin: 08/14/23 21:30 Dose: 1 drop Lidocaine (Lidocaine 4 % Patch Adh..Patch) 1 patch TRANSDERMA DAILY [facility]; Protocol Last Admin: 08/14/23 08:56 Dose: 1 patch Lisinopril (Lisinopril 40 Mg Tablet) 40 mg PO DAILY [facility]; Protocol Last Admin: 08/14/23 08:55 Dose: 40 mg Loratadine (Loratadine 10 Mg Tablet) 10 mg PO DAILY PRN PRN Reason: allergies Magnesium Hydroxide (Milk Of Magnesia 30 Ml Oral.Susp) 30 ml PO DAILY PRN PRN Reason: Constipation Olanzapine (Olanzapine 2.5 Mg Tablet) 2.5 mg PO Q8H PRN PRN Reason: agitation Quetiapine Fumarate (Quetiapine Fumarate 25 Mg Tablet) 25 mg PO BEDTIME [facility] Last Admin: 08/14/23 21:30 Dose: 25 mg Trazodone HCl (Trazodone Hcl 50 Mg Tablet) 50 mg PO BEDTIME PRN PRN Reason: Insomnia Last Admin: 08/13/23 20:33 Dose: 50 mg Allergies Allergies Allergy/AdvReac Type Severity Reaction Status Date / Time No Known Allergies Allergy Verified 07/27/23 21:14 Assessment & Plan Assessment & Plan (1) Major neurocognitive disorder: Status: Acute Code(s): F03.90 - Unspecified dementia, unspecified severity, without behavioral disturbance, psychotic disturbance, mood disturbance, and anxiety Plan Mr. Allen is a 83 year-old male with no prior psych or dementia dx who called 911 reporting seeing a man that disappear under his couch. His Utox was negative. In the ED, pt with some insight that what he saw was not there. He also presented oriented to situation, place, month, year. He did have periods of increase confusion and agitation. We discussed completing MOCA, ACL. Will given B12 and folic acid since in low. R/O neurocognitive disorder causing visual hallucination. PLAN 08/04- low B12 will start cyanocobalamine 1000mcg IM x 4 weeks, then oral. start folic acid 1mg po daily. pending results of MOCA and ACL. did add HIV testing. RPR- negative. 08/05 MOCA score 9/30, ACL 3.4 indicating severe cognitive impairment. Fluctuating pattern of confusion, with VH mostly at night, resting tremors, ?LBD. Monitor renal function, IV fluids, held Lisinopril. 08/06 Improved Cr 1.19, BUN 30. Pt more confused in evening. Seroquel 50mg po BID at 3pm and 8pm. continue aricept. 08/07 decrease seroquel due to over sedation. 08/08 continue tx. avoid oversedation at night 08/09 continue tx. fam meeting discussed dx, severe cognitive im pairment. repeat cmp- renal function stable. normocitic a ia,leukopenia of unclear etiology, will consult hematology. 08/10 Continue plan of care Seroquel Aricept periods of paranoia 08/11 continue tx. 08/12: Lidocaine patch to the left leg. Continue current management and treatment plan. 08/13: Continue current management and treatment plan. 08/14 continue tx. 08/15 continue tx. dc monday. Reason for continued inpatient stay Substantial Risk for: inability to function Time Spent With Patient Time: Total time managing care of this patient today ____ minutes.
[2023-08-15 10:48] LABS: Prot Elec - Albumin 3.8 g/dL (3.8-4.8); Prot Elec - Alpha1 0.3 g/dL (0.2-0.3); Prot Elec - Alpha2 0.6 g/dL (0.5-0.9); Prot Elec - Beta 1 0.4 g/dL (0.4-0.6); Prot Elec - Beta 2 0.5 g/dL (0.2-0.5); Prot Elec - Gamma 1.7 g/dL (0.8-1.7); Prot Elec - Total Protein 7.3 g/dL (6.1-8.1)
[2023-08-15] MEDS: Folic Acid 1 MG TABLET PO (11:23)
[2023-08-15] MEDS: lisinopriL 40 MG TABLET PO (11:23)
[2023-08-15] MEDS: amLODIPine Besylate 10 MG TABLET PO (11:23)
[2023-08-15] MEDS: Lidocaine 4 % Patch ADH..PATCH 1 PATCH TRANSDERMA (11:24)
[2023-08-15] MEDS: Ipratropium Bromide Nas 0.03 % 30 ML SPRAY 2 SPRAY NOSTRIL-B ×2 (11:31→20:28)
[2023-08-15] MEDS: Ketotifen Fumarate 0.025% Oph 5 ML DRPBTL 1 DROP EYE-BOTH ×2 (11:31→20:28)
[2023-08-15 19:45] VITALS: BP 142/65; PULSE 76; RESP 18; TEMP 36.7; O2SAT 100
[2023-08-15] MEDS: QUEtiapine Fumarate 25 MG TABLET PO (20:27)
[2023-08-15] MEDS: Donepezil HCl 5 MG TABLET PO (20:28)
[2023-08-15] MEDS: Acetaminophen 325 MG TABLET 650 MG PO (21:39)
[2023-08-16 06:00] VITALS: BP 143/64; PULSE 74; RESP 14; TEMP 37; O2SAT 99
[2023-08-16] MEDS: lisinopriL 40 MG TABLET PO (08:15)
[2023-08-16] MEDS: Ipratropium Bromide Nas 0.03 % 30 ML SPRAY 2 SPRAY NOSTRIL-B ×2 (08:15→20:54)
[2023-08-16] MEDS: Lidocaine 4 % Patch ADH..PATCH 1 PATCH TRANSDERMA (08:15)
[2023-08-16] MEDS: amLODIPine Besylate 10 MG TABLET PO (08:15)
[2023-08-16] MEDS: Ketotifen Fumarate 0.025% Oph 5 ML DRPBTL 1 DROP EYE-BOTH ×2 (08:15→20:54)
[2023-08-16] MEDS: Folic Acid 1 MG TABLET PO (08:15)
[2023-08-16 13:04] LABS: IgA 353 mg/dL (70-320); IgG 1972 mg/dL (600-1540); IgM 34 mg/dL (50-300)
[2023-08-16] MEDS: Acetaminophen 325 MG TABLET 650 MG PO (16:56)
--- NOTE | 2023-08-16 17:06 | P.PNPSI_ITS ---
Subjective Subjective Date of Service: 08/16/23 Reason For Visit: Psychosis Subjective Notes: Conditional Voluntary Interim History: Pt slept through the night. He has been visible on the unit. No behavioral concerns. Pt taking medications as prescribed.He was confused as to who this headline writer is. He is looking forward to be discharged. Review of Systems Review of Systems Pertinent positives and negatives as stated in HPI Mental Status Exam Mental Status Exam Narrative: Appearance: wearing hospital gown, fair hygiene, in NAD Behavior: cooperative Psychomotor: no agitation or retardation noted Speech: mostly jaycee TP: Somewhat rambling and repeating TC: feeling better, rambling story about something in his apartment Mood: good Affect: brightens up at times SI: denies HI: denies VH/AH: denies at this time Delusions:no overt Insight/judgment:fair x 2. Memory/cog: alert, oriented to place, month, year and situation. pending MOCA and ACL Diagnostics Vital Signs (24Hr): Vital Signs - 24 hr 08/15/23 19:45 08/16/23 06:00 Temperature 98.1 F 98.6 F Pulse Rate 76 74 Respiratory Rate 18 14 Blood Pressure 142/65 H 143/64 H Pulse Oximetry 100 99 Oxygen Delivery Method Room Air Room Air BMI result Body Mass Index 23.7 Labs 08/09/23 12:58 08/09/23 09:46 Labs: Laboratory Results - last 48 hr 08/11/23 16:23 Total Protein (PEP) 7.3 Albumin (PEP) 3.8 Rcrcc-0-Wztbawtvb 0.3 Wrxbg-6-Xcntnzwbp 0.6 Xjys-3-Csoypijj 0.4 Gaba-3-Wjcnztju 0.5 Gamma Globulins 1.7 PEP Interpretation SEE NOTE IgG Total 1972 H IgA Total 353 H IgM 34 L JAQUI Interpretation Imaging Radiology Impressions: ITS Impressions Head CT 07/27/23 21:51 IMPRESSION: No acute intracranial process seen. Medications Medications Current Medications Acetaminophen (Acetaminophen 325 Mg Tablet) 650 mg PO Q6H PRN PRN Reason: Headache/Pain Mild Scale (1-3) Last Admin: 08/16/23 16:56 Dose: 650 mg Al Hydroxide/Mg Hydroxide (Magnesium Hydrox/Alum Hydrox 30 Ml Oral.Susp) 30 ml PO Q6H PRN PRN Reason: Heartburn/Nausea Amlodipine Besylate (Amlodipine Besylate 10 Mg Tablet) 10 mg PO DAILY [facility]; Protocol Last Admin: 08/16/23 08:15 Dose: 10 mg Cyanocobalamin (Cyanocobalamin (Vitamin B-12) 1,000 Mcg/Ml Vial) 1,000 mcg IM Q7D [facility] Stop: 08/25/23 13:16 Last Admin: 08/11/23 12:34 Dose: 1,000 mcg Donepezil HCl (Donepezil Hcl 5 Mg Tablet) 5 mg PO BEDTIME [facility] Last Admin: 08/15/23 20:28 Dose: 5 mg Folic Acid (Folic Acid 1 Mg Tablet) 1 mg PO DAILY [facility] Last Admin: 08/16/23 08:15 Dose: 1 mg Ipratropium [place] (Ipratropium [place] Miguel A 0.03 % 30 Ml [place]) 2 spray NOSTRIL-B BID [facility] Last Admin: 08/16/23 08:15 Dose: 2 spray Ketotifen Fumarate (Ketotifen Fumarate 0.025% Oph 5 Ml Drpbtl) 1 drop EYE-BOTH BID [facility] Last Admin: 08/16/23 08:15 Dose: 1 drop Lidocaine (Lidocaine 4 % Patch Adh..Patch) 1 patch TRANSDERMA DAILY [facility]; Protocol Last Admin: 08/16/23 08:15 Dose: 1 patch Lisinopril (Lisinopril 40 Mg Tablet) 40 mg PO DAILY [facility]; Protocol Last Admin: 08/16/23 08:15 Dose: 40 mg Loratadine (Loratadine 10 Mg Tablet) 10 mg PO DAILY PRN PRN Reason: allergies Magnesium Hydroxide (Milk Of Magnesia 30 Ml Oral.Susp) 30 ml PO DAILY PRN PRN Reason: Constipation Olanzapine (Olanzapine 2.5 Mg Tablet) 2.5 mg PO Q8H PRN PRN Reason: agitation Quetiapine Fumarate (Quetiapine Fumarate 25 Mg Tablet) 25 mg PO BEDTIME [facility] Last Admin: 08/15/23 20:27 Dose: 25 mg Trazodone HCl (Trazodone Hcl 50 Mg Tablet) 50 mg PO BEDTIME PRN PRN Reason: Insomnia Last Admin: 08/13/23 20:33 Dose: 50 mg Allergies Allergies Allergy/AdvReac Type Severity Reaction Status Date / Time No Known Allergies Allergy Verified 07/27/23 21:14 Assessment & Plan Assessment & Plan (1) Major neurocognitive disorder: Status: Acute Code(s): F03.90 - Unspecified dementia, unspecified severity, without behavioral disturbance, psychotic disturbance, mood disturbance, and anxiety Plan Mr. Allen is a 83 year-old male with no prior psych or dementia dx who called 911 reporting seeing a man that disappear under his couch. His Utox was negative. In the ED, pt with some insight that what he saw was not there. He also presented oriented to situation, place, month, year. He did have periods of increase confusion and agitation. We discussed completing MOCA, ACL. Will given B12 and folic acid since in low. R/O neurocognitive disorder causing visual hallucination. PLAN 08/04- low B12 will start cyanocobalamine 1000mcg IM x 4 weeks, then oral. start folic acid 1mg po daily. pending results of MOCA and ACL. did add HIV testing. RPR- negative. 08/05 MOCA score 9/30, ACL 3.4 indicating severe cognitive impairment. Fluctuating pattern of confusion, with VH mostly at night, resting tremors, ?LBD. Monitor renal function, IV fluids, held Lisinopril. 08/06 Improved Cr 1.19, BUN 30. Pt more confused in evening. Seroquel 50mg po BID at 3pm and 8pm. continue aricept. 08/07 decrease seroquel due to over sedation. 08/08 continue tx. avoid oversedation at night 08/09 continue tx. fam meeting discussed dx, severe cognitive im pairment. repeat cmp- renal function stable. normocitic a ia,leukopenia of unclear etiology, will consult hematology. 08/10 Continue plan of care Seroquel Aricept periods of paranoia 08/11 continue tx. 08/12: Lidocaine patch to the left leg. Continue current management and treatment plan. 08/13: Continue current management and treatment plan. 08/14 continue tx. 08/15 continue tx. dc monday. 08/16 continue tx. Reason for continued inpatient stay Substantial Risk for: inability to function Time Spent With Patient Time: Total time managing care of this patient today ____ minutes.
[2023-08-16 18:00] VITALS: BP 163/72; PULSE 81; RESP 16; TEMP 36.9; O2SAT 100
[2023-08-16] MEDS: QUEtiapine Fumarate 25 MG TABLET PO (20:53)
[2023-08-16] MEDS: Donepezil HCl 5 MG TABLET PO (20:53)
[2023-08-17 07:45] VITALS: BP 135/65; PULSE 80; RESP 18; TEMP 36.6; O2SAT 100
[2023-08-17] MEDS: Lidocaine 4 % Patch ADH..PATCH 1 PATCH TRANSDERMA (08:28)
[2023-08-17] MEDS: amLODIPine Besylate 10 MG TABLET PO (08:29)
[2023-08-17] MEDS: Folic Acid 1 MG TABLET PO (08:29)
[2023-08-17] MEDS: lisinopriL 40 MG TABLET PO (08:29)
[2023-08-17] MEDS: Ketotifen Fumarate 0.025% Oph 5 ML DRPBTL 1 DROP EYE-BOTH ×2 (08:34→21:25)
[2023-08-17] MEDS: Ipratropium Bromide Nas 0.03 % 30 ML SPRAY 2 SPRAY NOSTRIL-B ×2 (08:34→21:25)
[2023-08-17 18:00] VITALS: BP 121/59; PULSE 86; RESP 16; TEMP 37.2; O2SAT 98
[2023-08-17] MEDS: Donepezil HCl 5 MG TABLET PO (21:24)
[2023-08-17] MEDS: QUEtiapine Fumarate 25 MG TABLET PO (21:24)
[2023-08-18 08:24] VITALS: BP 126/59; PULSE 80; RESP 18; TEMP 36.9; O2SAT 99
[2023-08-18] MEDS: Ipratropium Bromide Nas 0.03 % 30 ML SPRAY 2 SPRAY NOSTRIL-B (08:25)
[2023-08-18] MEDS: Ketotifen Fumarate 0.025% Oph 5 ML DRPBTL 1 DROP EYE-BOTH (08:25)
[2023-08-18] MEDS: amLODIPine Besylate 10 MG TABLET PO (08:26)
[2023-08-18] MEDS: Lidocaine 4 % Patch ADH..PATCH 1 PATCH TRANSDERMA (08:26)
[2023-08-18] MEDS: lisinopriL 40 MG TABLET PO (08:26)
[2023-08-18] MEDS: Folic Acid 1 MG TABLET PO (08:26)
--- NOTE | 2023-08-18 09:08 | HO.PSYCHPN ---
Subjective Subjective Date of Service: 08/17/23 Reason For Visit: Psychosis Subjective Notes: Conditional Voluntary Interim History: Pt slept through the night. Pt visible on the unit. No behavioral concerns. no reports of VH/AH. taking medications as prescribed. Diagnostics Vital Signs (24Hr): Vital Signs - 24 hr 08/17/23 18:00 08/18/23 08:24 Temperature 98.9 F 98.4 F Pulse Rate 86 80 Respiratory Rate 16 18 Blood Pressure 121/59 L 126/59 L Pulse Oximetry 98 99 Oxygen Delivery Method Room Air Room Air BMI result Body Mass Index 23.7 Labs 08/09/23 12:58 08/09/23 09:46 Labs: Laboratory Results - last 48 hr 08/11/23 16:23 Abnorm Protein Band 1 TNP Abnorm Protein Band 2 TNP Abnorm Protein Band 3 TNP IgG Total 1972 H IgA Total 353 H IgM 34 L JAQUI Interpretation Imaging Radiology Impressions: ITS Impressions Head CT 07/27/23 21:51 IMPRESSION: No acute intracranial process seen. Medications Medications Current Medications Acetaminophen (Acetaminophen 325 Mg Tablet) 650 mg PO Q6H PRN PRN Reason: Headache/Pain Mild Scale (1-3) Last Admin: 08/16/23 16:56 Dose: 650 mg Al Hydroxide/Mg Hydroxide (Magnesium Hydrox/Alum Hydrox 30 Ml Oral.Susp) 30 ml PO Q6H PRN PRN Reason: Heartburn/Nausea Amlodipine Besylate (Amlodipine Besylate 10 Mg Tablet) 10 mg PO DAILY [facility]; Protocol Last Admin: 08/18/23 08:26 Dose: 10 mg Cyanocobalamin (Cyanocobalamin (Vitamin B-12) 1,000 Mcg/Ml Vial) 1,000 mcg IM Q7D [facility] Stop: 08/25/23 13:16 Last Admin: 08/11/23 12:34 Dose: 1,000 mcg Donepezil HCl (Donepezil Hcl 5 Mg Tablet) 5 mg PO BEDTIME [facility] Last Admin: 08/17/23 21:24 Dose: 5 mg Folic Acid (Folic Acid 1 Mg Tablet) 1 mg PO DAILY [facility] Last Admin: 08/18/23 08:26 Dose: 1 mg Ipratropium [place] (Ipratropium [place] Miguel A 0.03 % 30 Ml [place]) 2 spray NOSTRIL-B BID [facility] Last Admin: 08/18/23 08:25 Dose: 2 spray Ketotifen Fumarate (Ketotifen Fumarate 0.025% Oph 5 Ml Drpbtl) 1 drop EYE-BOTH BID [facility] Last Admin: 08/18/23 08:25 Dose: 1 drop Lidocaine (Lidocaine 4 % Patch Adh..Patch) 1 patch TRANSDERMA DAILY [facility]; Protocol Last Admin: 08/18/23 08:26 Dose: 1 patch Lisinopril (Lisinopril 40 Mg Tablet) 40 mg PO DAILY [facility]; Protocol Last Admin: 08/18/23 08:26 Dose: 40 mg Loratadine (Loratadine 10 Mg Tablet) 10 mg PO DAILY PRN PRN Reason: allergies Magnesium Hydroxide (Milk Of Magnesia 30 Ml Oral.Susp) 30 ml PO DAILY PRN PRN Reason: Constipation Olanzapine (Olanzapine 2.5 Mg Tablet) 2.5 mg PO Q8H PRN PRN Reason: agitation Quetiapine Fumarate (Quetiapine Fumarate 25 Mg Tablet) 25 mg PO BEDTIME [facility] Last Admin: 08/17/23 21:24 Dose: 25 mg Trazodone HCl (Trazodone Hcl 50 Mg Tablet) 50 mg PO BEDTIME PRN PRN Reason: Insomnia Last Admin: 08/13/23 20:33 Dose: 50 mg Allergies Allergies Allergy/AdvReac Type Severity Reaction Status Date / Time No Known Allergies Allergy Verified 07/27/23 21:14 Assessment & Plan Assessment & Plan (1) Major neurocognitive disorder: Status: Acute Code(s): F03.90 - Unspecified dementia, unspecified severity, without behavioral disturbance, psychotic disturbance, mood disturbance, and anxiety Plan Mr. Allen is a 83 year-old male with no prior psych or dementia dx who called 911 reporting seeing a man that disappear under his couch. His Utox was negative. In the ED, pt with some insight that what he saw was not there. He also presented oriented to situation, place, month, year. He did have periods of increase confusion and agitation. We discussed completing MOCA, ACL. Will given B12 and folic acid since in low. R/O neurocognitive disorder causing visual hallucination. PLAN 08/04- low B12 will start cyanocobalamine 1000mcg IM x 4 weeks, then oral. start folic acid 1mg po daily. pending results of MOCA and ACL. did add HIV testing. RPR- negative. 08/05 MOCA score 9/30, ACL 3.4 indicating severe cognitive impairment. Fluctuating pattern of confusion, with VH mostly at night, resting tremors, ?LBD. Monitor renal function, IV fluids, held Lisinopril. 08/06 Improved Cr 1.19, BUN 30. Pt more confused in evening. Seroquel 50mg po BID at 3pm and 8pm. continue aricept. 08/07 decrease seroquel due to over sedation. 08/08 continue tx. avoid oversedation at night 08/09 continue tx. fam meeting discussed dx, severe cognitive im pairment. repeat cmp- renal function stable. normocitic a ia,leukopenia of unclear etiology, will consult hematology. 08/10 Continue plan of care Seroquel Aricept periods of paranoia 08/11 continue tx. 08/12: Lidocaine patch to the left leg. Continue current management and treatment plan. 08/13: Continue current management and treatment plan. 08/14 continue tx. 08/15 continue tx. dc monday. 08/16 continue tx. 08/17 continue tx dc home tomorrow Reason for continued inpatient stay Substantial Risk for: inability to function Time Spent With Patient Time: Total time managing care of this patient today ____ minutes.
--- NOTE | 2023-08-18 09:43 | PM.PSYDC ---
DS: Providers Provider Date of Service: 08/18/23 Date of admission: 08/02/23 14:24 Date of discharge: 08/18/23 Primary care physician: Unknown Physician Consults: 08/05/23 09:55 Consult to Hospitalist Routine Comment: Consulting Provider: Hospitalist Reason For Exam: BECKIE 08/09/23 20:48 Consult to Hematology / Oncology Routine Consulting Provider: Alisha Damon Reason for consultation: leukopenia Has provider been notified: Yes DS: Diagnosis Discharge Diagnosis (1) Major neurocognitive disorder: Status: Acute DS: Medications Discharge Medications Home Medications: Previous Rx's Medication Instructions Recorded amlodipine 10 mg tablet 10 mg PO DAILY #30 tabs 08/18/23 donepezil 5 mg tablet 5 mg PO BEDTIME #30 tabs 08/18/23 folic acid 1 mg tablet 1 mg PO DAILY #30 tabs 08/18/23 ipratropium bromide 21 mcg (0.03 2 spray intranasal BID #30 mL 08/18/23 %) nasal spray ketotifen fumarate 0.025 % (0.035 1 drp ophthalmic (eye) BID #5 mL 08/18/23 %) eye drops lidocaine 4 % topical patch 1 patch transdermal DAILY #30 ea 08/18/23 (Lidocaine Pain Relief) lisinopril 40 mg tablet 40 mg PO DAILY #30 tabs 08/18/23 quetiapine 25 mg tablet 25 mg PO BEDTIME #30 tabs 08/18/23 trazodone 50 mg tablet 50 mg PO BEDTIME PRN Insomnia #30 08/18/23 tabs Mental Status Exam Mental Status Exam Narrative: Appearance: wearing hospital gown, fair hygiene, in NAD Behavior: cooperative Psychomotor: no agitation or retardation noted Speech: mostly jaycee TP: Somewhat rambling and repeating TC: feeling better, rambling story about something in his apartment Mood: good Affect: brightens up at times SI: denies HI: denies VH/AH: denies at this time Delusions:no overt Insight/judgment:fair x 2. Memory/cog: alert, oriented to place, month, year and situation. MOCA 04/15, ACL 3.4 showing more severe cognitive impairment. Data Data Completed and Pending Completed studies during hospitalization [Text1]: 08/11/23 16:23 Lactate Dehydrogenase 184 Total Protein (PEP) 7.3 Albumin (PEP) 3.8 Lppls-8-Lnesxjoej 0.3 Slzzw-2-Illckogqk 0.6 Pznr-2-Msgkbjyi 0.4 Pkxw-0-Wlgdpcge 0.5 Gamma Globulins 1.7 Abnorm Protein Band 1 TNP Abnorm Protein Band 2 TNP Abnorm Protein Band 3 TNP PEP Interpretation SEE NOTE IgG Total 1972 H IgA Total 353 H IgM 34 L JAQUI Interpretation Imaging Diagnostic Imaging Impressions Head CT 07/27/23 21:51 IMPRESSION: No acute intracranial process seen. DS: Summary Hospital Course Hospital Course: Mr. Allen is a 83 year-old male with no prior psychiatric or dx of dementia who was brought via police after he called 911 reporting that there was a man in his living room that ayala vanished under the couch. In the ED, his utox was negative. CBC (neutropenia, w/normocytic anemia although MCV on higher end of normal, low folic acid and low B12) and CMP mostly unremarkable. UA without signs of infection. Head CT without acute pathology but does show atrophy and microvascular changes. In the ED, pt presented as fully oriented with some insight that what he saw was possible not there. He did have episodes of increase confusion and combative behaviors which required medication. On the unit, pt presents as calm and cooperative. He denies seeing things that others can't see or hear things that others can't hear. He expressed his anxiety about what he saw and hopes this doesn't happen again. He reports sleeping and eating well.He denies symptoms of depression or anxiety. He denies SI/HI. No overt delusional content is reported at this time. He continues to present fully oriented to place, situation, month and date. Medical Evaluation Reviewed: Yes HOSPITAL COURSE He was admitted on a CV and placed on 15 minutes checks for safety. 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 He was also started on seroquel 25mg po qhs. He initially had episodes of confusion and agitation in the evening and later in the day when he would report seeing animals or people. He was mostly oriented to place, not situation, but to year and month. He tolerated the medications well. We had family meeting to discuss dx of dementia and need for supports in the community. Family agreed to support him with medication management and daily visits. He tolerated the seroquel well. He had one episode of poor oral intake, hypotension and increase in BUN and Cr. He received IV fluids with good effect. He was also seen by hematology: This is a 83-year-old black male noted to have slight acute worsening of chronic leukopenia. 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 On recent blood work he was noticed to have WBC count under 3 K and normocytic anemia. He was noted to have folic acid deficiency and low vitamin B12 as well. He was noted to have acute renal insufficiency when he was admitted on 08/04/2023. His kidney functions have returned to baseline after IV hydration. 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 Acute worsening could be related to nutritional/vitamin deficiency. He does not appear to have any risk factors for hepatitis, HIV screen was negative. He does not appear to have been on medications at home that would affect his white count. He has been started on vitamin B12 and folic acid supplementation. He has slightly elevate protein levels, submit SPEP/ serum immunofixation. Underlying primary bone marrow disorder such as plasma cell dyscrasia/lymphoma is a possibility. Time Spent with Patient Time attestation: Total time managing care of this patient today ____ minutes. Discharge Plan Discharge Anticipated Discharge Date/Time: 08/18/23 08:49 Patient Disposition: Home, Self-Care Discharge Diagnosis: Major Neurocognitive disorder [facility] - 08/23/23 9:00 am (Appointment by Telehealth: will be calling patient @ [phone] on 08/23/2023 @ 9am ) [facility] - Referral Made [Other] - [address] Gina Bae - PCP [facility] [Other] - 08/21/23 1:00 pm (IN Person Appointment: 08/21/2023 @ 1pm ) [facility] [Outside] Discharge Medications: New quetiapine 25 mg Tablet 25 mg PO BEDTIME Qty: 30 0RF donepezil 5 mg Tablet 5 mg PO BEDTIME Qty: 30 0RF trazodone 50 mg Tablet 50 mg PO BEDTIME PRN (Reason: Insomnia) Qty: 30 0RF amlodipine 10 mg Tablet 10 mg PO DAILY Qty: 30 0RF Protocol: Hold for SBP< HOLD for SBP < : 90 lisinopril 40 mg Tablet 40 mg PO DAILY Qty: 30 0RF Protocol: Hold for SBP< HOLD for SBP < : 90 ipratropium bromide 21 mcg (0.03 %) spray,non-aerosol 2 spray intranasal BID Qty: 30 0RF Rx Instructions: administer into each nostril ketotifen fumarate 0.025 % (0.035 %) drops 1 drp ophthalmic (eye) BID Qty: 5 0RF Rx Instructions: administer at least 8 hours apart lidocaine [Lidocaine Pain Relief] 4 % Adhesive Patch,Medicated 1 patch transdermal DAILY Qty: 30 0RF Protocol: Apply to: Apply to: left hip folic acid 1 mg Tablet 1 mg PO DAILY Qty: 30 0RF Discontinued acetaminophen 325 mg tablet 650 mg PO Q6H PRN (Reason: pain) cetirizine 10 mg tablet 10 mg PO DAILY PRN (Reason: allergies) ketotifen fumarate [Eye Itch Relief] 0.025 % (0.035 %) drops 1 drp ophthalmic (eye) BID amlodipine 5 mg tablet 5 mg PO DAILY lisinopril 40 mg tablet 40 mg PO DAILY ipratropium bromide 21 mcg (0.03 %) spray,non-aerosol 2 spray intranasal BID Discharge Orders: Discharge Order (Routine); Ordered 08/18/23 Ordered By: Eva Prasad Diet: Regular diet Activity on Discharge: As tolerated Stand Alone Forms: Patient Portal Discharge page, Community Support Care Plan Goals: 1. Maintain mood 2. No SI/HI 3. no aggression towards self or others Health Concerns: Follow up with PCP Plan of Treatment: Pt's affect is bright, non labile. No SI/HI. No overt VH/AH, no delusional content. No aggression towards self or others. Underlying memory impairments. Assessment: Pt with brighter, non labile affect. No SI/HI. No aggression towards self or others. No VH/AH, no delusional content. Sleeping and eating well. Discharge Date/Time: 08/18/23 11:35
--- NOTE | 2023-08-18 11:45 | PC.NURSE ---
Pt. alert and oriented in all spheres. Denies anxiety, depression. SI, HI, Perceptual disturbances. Pt. reports readiness for discharge. Discharge instructions and medications reviewed with pt. and family, who verbalized understanding. Pt. left unit at 11:35 via WC accompanied by this RN and family.
== END 2023-08-18 11:35 | disposition home or self-care (01) | DRG 885 ==
LOC: HO.ED 08-02 12:20 → HO.PGERI 08-02 14:29
PROVIDERS: Internal Medicine; Physician Assistant; Psychiatry & Neurology Psychiatry; Admitting Provider Social Worker; Emergency Provider Student in an Organized Health Care Education/Training Program; Visit Provider Social Worker
DX: F29 Unspecified psychosis not due to a substance or known physiological condition (principal); F03.90 Unspecified dementia, unspecified severity, without behavioral disturbance, psychotic disturbance, mood disturbance, and anxiety; K59.09 Other constipation; I10 Essential (primary) hypertension; D72.819 Decreased white blood cell count, unspecified; R94.31 Abnormal electrocardiogram [ECG] [EKG]; Z20.822 Contact with and (suspected) exposure to COVID-19; Z79.899 Other long term (current) drug therapy
CPT/HCPCS: 0241U; 36415; 70450; 80048; 80053; 80061; 80307; 81001; 82607; 82728; 82746; 82784; 83036; 83540; 83615; 84165; 84443; 85025; 85045; 86140; 86334; 86780; 87389; 87502; 87635; 93005; 99285; J1200; J1630; J2060; J3420; S9485

== ENCOUNTER → 2023-07-27 19:33 | Outpatient (BNV) | payer MEDICARE, SELFPAY | PROVIDERS: Emergency Provider Student in an Organized Health Care Education/Training Program; Visit Provider Social Worker | DX: F03.90 Unspecified dementia, unspecified severity, without behavioral disturbance, psychotic disturbance, mood disturbance, and anxiety (principal) | CPT/HCPCS: 90792; 99231; 99232; 99238; 99285 ==

== ENCOUNTER → 2023-07-28 10:14 | Outpatient (BNV) | payer MEDICARE, SELFPAY | PROVIDERS: Emergency Provider Student in an Organized Health Care Education/Training Program; Visit Provider Internal Medicine Cardiovascular Disease | DX: I49.1 Atrial premature depolarization (principal); R94.31 Abnormal electrocardiogram [ECG] [EKG] | CPT/HCPCS: 93010 ==

== ENCOUNTER → 2023-08-02 12:27 | Outpatient (BNV) | payer MEDICARE, SELFPAY | PROVIDERS: Admitting Provider Social Worker; Emergency Provider Student in an Organized Health Care Education/Training Program; Visit Provider Internal Medicine | DX: I47.10 Supraventricular tachycardia, unspecified (principal); R94.31 Abnormal electrocardiogram [ECG] [EKG] | CPT/HCPCS: 93010 ==

== ENCOUNTER → 2023-08-02 14:24 | Outpatient (BNV) | payer MEDICARE, SELFPAY | PROVIDERS: Admitting Provider Social Worker; Emergency Provider Student in an Organized Health Care Education/Training Program; Visit Provider Physician Assistant Medical | DX: I10 Essential (primary) hypertension (principal); I45.81 Long QT syndrome; K59.00 Constipation, unspecified | CPT/HCPCS: 99222; 99499 ==

== ENCOUNTER → 2023-08-02 14:24 | Outpatient (BNV) | payer MEDICARE, SELFPAY | PROVIDERS: Admitting Provider Social Worker; Emergency Provider Student in an Organized Health Care Education/Training Program; Visit Provider Psychiatry & Neurology Psychiatry | DX: F03.90 Unspecified dementia, unspecified severity, without behavioral disturbance, psychotic disturbance, mood disturbance, and anxiety (principal) | CPT/HCPCS: 99232 ==

== ENCOUNTER → 2023-08-02 14:24 | Outpatient (BNV) | payer MEDICARE, SELFPAY | PROVIDERS: Admitting Provider Social Worker; Emergency Provider Student in an Organized Health Care Education/Training Program; Visit Provider Internal Medicine | DX: D72.819 Decreased white blood cell count, unspecified (principal) | CPT/HCPCS: 99222 ==

== ENCOUNTER 2025-03-03 12:26 | Emergency (ER) | payer MEDICARE, SELFPAY ==
[2025-03-03] VITALS (10 sets, daily range): BP systolic 159–212; BP diastolic 72–100; PULSE 98–112; RESP 16–20; TEMP 36.5–37; O2SAT 97–99; BMI 29.3
--- NOTE | ~2025-03-03 | CT_ITS ---
EXAMINATION: CT HEAD WITHOUT CONTRAST CLINICAL INFORMATION: AMS COMPARISON: July 27, 2023 TECHNIQUE: Contiguous axial imaging was performed from the skull base to vertex without intravenous administration of contrast. This CT examination was performed using dose optimization techniques as appropriate, variously including the following: *Automated exposure control *Adjustment of mA and/or kV according to patient size (this includes techniques or standardized protocols for targeted exams where dose is matched to indication/reason for exam; i.e. extremities or head) *Use of iterative reconstruction technique DLP: 809 mGy-cm FINDINGS: No acute intracranial hemorrhage, mass effect, midline shift, hydrocephalus or herniation. Bilateral multifocal patchy and confluent deep periventricular white matter hypodensities involving centrum semiovale and de la o radiata. Prominence of the extra-axial CSF spaces cerebral sulci and ventricles likely central volume loss. Posterior cranial fossa contents demonstrated old lacunar infarcts left mid brain/left alfredo. Calcified plaques in the V4 segments of the vertebral arteries. Normal position of the cerebellar tonsils. Sellar/suprasellar region demonstrated no gross masses. Calcified plaques in the cavernous supraclinoid segments both ICAs. No acute fracture in the bony calvarium. No air-fluid levels in the paranasal sinuses. Tympanic cavities and mastoid cells are aerated. No gross masses or hematoma is in the intraconal or extraconal compartments of the orbits. CT/CT head/brain wo IV con IMPRESSION: No acute intracranial hemorrhage. Small vessel occlusive disease. Global cerebral atrophy. Atherosclerosis disease, intracranial Electronically signed by: Tadeo Milian MD 03/03/2025 02:32 PM EDT
--- NOTE | ~2025-03-03 | XR_ITS ---
EXAMINATION: XR CHEST CLINICAL INFORMATION: pneumonia COMPARISON: April 07, 2007 TECHNIQUE: Frontal view of the chest was obtained. FINDINGS: No consolidation pleural effusion or pneumothorax. No hyperinflation. Cardiomediastinal silhouette demonstrates a round cardiac apex. S-shaped curvature of the thoracic spine. Degenerative changes in both shoulders with joint space narrowing of the acromiohumeral joint. XR/XR chest 1V IMPRESSION: No acute airspace disease. 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 Scoliosis, thoracic spine. Concerning old/chronic rotator cuff tendon., Bilaterally. Electronically signed by: Tadeo Milian MD 03/03/2025 12:59 PM EDT
--- NOTE | 2025-03-03 12:43 | ED.GENADULT ---
HPI - General Adult General Chief complaint: Altered Mental Status Stated complaint: AMS,FOUND BY TRACKS PER EMS Time Seen by Provider: 03/03/25 12:35 Source: patient and EMS Mode of arrival: EMS Limitations: altered mental status History of Present Illness ED Provider: Dr. Etienne HPI narrative: This is a a 85-year-old male history of hypertension, cognitive disorder for evaluation of altered mentation. Patient was found by EMS at the [employer]. Patient stated that he was waiting at the [employer] [place] to meet up with his friends. He states that he does live in an apartment and family does check up on him. He denies any fever denies any coughing denies any belly pain denies any diarrhea. Denies any shortness of breath. Patient is aware where he is at this time however when mentioning the year he stated as ?2039?. EMS noted that patient has been altered. He was a poor historian. Related Data Home Medications ?Medication ?Instructions ?Recorded ?Confirmed amlodipine 2.5 mg tablet 2.5 mg PO DAILY 03/04/25 03/04/25 ketotifen fumarate 0.025 % (0.035 1 drp ophthalmic (eye) BID 03/04/25 03/04/25 %) eye drops (Eye Itch Relief) tamsulosin 0.4 mg capsule 0.4 mg PO BEDTIME 03/04/25 03/04/25 Previous Rx's ?Medication ?Instructions ?Recorded donepezil 5 mg tablet 5 mg PO BEDTIME #30 tabs 08/18/23 ipratropium bromide 21 mcg (0.03 2 spray intranasal BID #30 mL 08/18/23 %) nasal spray lisinopril 40 mg tablet 40 mg PO DAILY #30 tabs 08/18/23 quetiapine 25 mg tablet 25 mg PO BEDTIME #30 tabs 08/18/23 Allergies Allergy/AdvReac Type Severity Reaction Status Date / Time No Known Allergies Allergy Verified 03/03/25 12:40 Review of Systems Review of Systems: Review of systems limited due to patient's altered mentation. PMFSH Past Medical History [facility] Narrative: Obtained via medical chart review. Social History Social History Household Members: None Housing: Apartment Do you presently have visiting nurse or other home services: No Unable to assess alcohol history related to: Unknown Alcohol intake: current Alcohol intake frequency: holidays/special occasions only Patient Tobacco Use Status: Never used Tobacco Smoked in Last 30 Days: No e-Cigarette/Vaping Use: Never Used Second Hand Smoke Exposure: No Use of substances other than those prescribed or required for medical reasons: No Advance Directives: Yes Advance Directives on File: Yes Advance Directives Date on File: 07/28/23 Do you have a plan to hurt others: No Plan service: No Sexual orientation: Straight/Heterosexual Physical Exam ED Exam Exam: General: Pleasantly confused, appears disheveled Head: Normacephalic, atraumatic ENT: oral mucosa dry, neck supple, no tracheal deviation Cardiovascular: regular rate, regular rhythm, no murmurs, rubbing, gallops Respiratory: CTAB, no wheeze, rales, rhonchi Gastrointestinal: Soft, non distended, non tender, non guarding Neurological: Awake and alert, no facial droop noted Skin: Warm and dry Psychiatric: Appears encephalopathic Vital Signs: Vital Signs - 24 hr 03/06/25 14:00 03/06/25 20:15 03/07/25 05:35 Temperature 98.4 F 98.6 F 98 F Pulse Rate 77 78 89 Respiratory Rate 16 18 18 Blood Pressure 167/73 H 163/72 H 170/88 H Pulse Oximetry 97 100 97 Oxygen Delivery Method Room Air Room Air Room Air BMI result Body Mass Index 29.3 Course Reevaluation(s) Reevaluation #1: Arabella Linares MD: The patient was evaluated by case management. Patient is way too confused to be discharged. Patient will not be safe being discharged. Recommendations: Short-term rehab, but patient needs to be evaluated by physical therapy 1st. Overnight, patient will be staying in the emergency room. Time: 18:44 Reevaluation #2: Time: 13:08 Date: 03/04/25 Provider: JUJU Diego Patient in physician observation for case management needs. No acute events reported overnight.? No current issues or complaints. VS stable. Awaiting PT Case Management consult. We will continue to monitor. Reevaluation #3: 11:49pm; 03/06/2025 Physician obsevation. patient is not in distress. patient is at baseline. Patient awaiting physical therapy evaluation. Vital signs stable. Time: 08:05 Date: 03/07/25 Provider: Aparna Caicedo PA-C No overnight events. Physician observation ended at 9 am. Patient has been cleared for discharge by the CARE team. Patient to be [facility] at a [facility]. Time: 12:05 Medications Administered Generic Name Dose Route Start Last Admin Trade Name Shy PRN Reason Stop Dose Admin Amlodipine Besylate 2.5 mg 03/05/25 09:00 03/06/25 08:21 Amlodipine Besylate 2.5 Mg Tablet PO 2.5 mg DAILY GAVIN Administration Protocol Donepezil HCl 5 mg 03/04/25 21:00 03/06/25 21:03 Donepezil Hcl 5 Mg Tablet PO 5 mg BEDTIME GAVIN Administration Ipratropium Shafer 2 spray 03/04/25 21:00 03/06/25 21:03 Ipratropium Shafer Miguel A 0.03 % 30 Ml [place] NOSTRIL-B 2 spray BID GAVIN Administration Ketotifen Fumarate 1 drop 03/04/25 21:00 03/06/25 21:03 Ketotifen Fumarate 0.025% Oph 5 Ml Drpbtl EYE-BOTH 1 drop BID GAVIN Administration Lisinopril 40 mg 03/05/25 09:00 03/06/25 08:21 Lisinopril 40 Mg Tablet PO 40 mg DAILY GAVIN Administration Protocol Quetiapine Fumarate 25 mg 03/04/25 21:00 03/06/25 21:03 Quetiapine Fumarate 25 Mg Tablet PO 25 mg BEDTIME GAVIN Administration Tamsulosin HCl 0.4 mg 03/04/25 21:00 03/06/25 21:03 Tamsulosin Hcl 0.4 Mg Capsule PO 0.4 mg BEDTIME GAVIN Administration Discontinued Medications Generic Name Dose Route Start Last Admin Trade Name Shy PRN Reason Stop Dose Admin Amlodipine Besylate 2.5 mg 03/03/25 14:42 03/03/25 15:15 Amlodipine Besylate 2.5 Mg Tablet PO 03/03/25 14:43 2.5 mg ONCE ONE Administration Protocol Amlodipine Besylate 2.5 mg 03/04/25 14:30 03/04/25 16:18 Amlodipine Besylate 2.5 Mg Tablet PO 03/04/25 14:31 2.5 mg ONCE ONE Administration Protocol Amlodipine Besylate 5 mg 03/04/25 21:30 03/04/25 21:45 Amlodipine Besylate 5 Mg Tablet PO 03/04/25 21:31 5 mg ONCE ONE Administration Protocol Ceftriaxone Sodium 2 gm 03/03/25 13:46 03/03/25 14:01 Ceftriaxone Sodium 2 Gm Vial IVPUSH 03/03/25 13:47 2 gm ONCE ONE Administration Droperidol 0.625 mg 03/03/25 23:48 03/03/25 23:58 Droperidol 5 Mg/2 Ml Vial IVPUSH 03/03/25 23:49 0.625 mg ONCE ONE Administration Droperidol 0.625 mg 03/05/25 02:29 03/05/25 02:42 Droperidol 5 Mg/2 Ml Vial IVPUSH 03/05/25 02:30 0.625 mg ONCE ONE Administration Lactated Ringer's 1,000 mls @ 999 mls/hr 03/03/25 13:15 03/03/25 15:14 Lr IV 03/03/25 14:15 Infused .Q1H1M GAVIN Infusion Lactated Ringer's 1,000 mls @ 999 mls/hr 03/03/25 15:15 03/03/25 15:40 Lr IV 03/03/25 15:45 Not Given .Q1H1M GAVIN Lactated Ringer's 500 mls @ 999 mls/hr 03/03/25 15:45 03/03/25 16:19 Lr IV 03/03/25 16:15 Infused .Q31M GAVIN Infusion Lisinopril 40 mg 03/03/25 14:42 03/03/25 15:16 Lisinopril 40 Mg Tablet PO 03/03/25 14:43 40 mg ONCE ONE Administration Protocol Lisinopril 40 mg 03/04/25 14:31 03/04/25 14:57 Lisinopril 40 Mg Tablet PO 03/04/25 14:32 40 mg ONCE ONE Administration Protocol Melatonin 9 mg 03/05/25 22:14 03/05/25 22:38 Melatonin 3 Mg Tablet PO 03/05/25 22:15 9 mg ONCE ONE Administration Quetiapine Fumarate 25 mg 03/03/25 22:35 03/03/25 23:57 Quetiapine Fumarate 25 Mg Tablet PO 03/03/25 22:36 Not Given ONCE ONE Ziprasidone 20 mg 03/05/25 05:22 03/05/25 06:55 Ziprasidone Mesylate 20 Mg Vial IM 03/05/25 05:23 Not Given ONCE ONE Medical Decision Making Medical Decision Making [facility] Narrative: A 85-year-old male present to hospital today for evaluation altered mentation. On chart review on patient discharge summary on 08/2024 patient was sent home with Seroquel. There was concern about cognitive disorder. On evaluation patient is tachycardic on vital sign. Due to his altered mentation I am unsure whether this is baseline for him. We will pursue a sepsis workup. Knowingly he does not have a fever on vital sign. He does appear to be disheveled on exam. This may be underlying dementia. However we will pursue a broad altered mentation workup including CBC CMP, blood culture, chest x-ray, UA, ammonia, VBG, TSH, sepsis bolus IV fluid be initiated for the patient. We will also obtain CT head to evaluate for any intracranial process I am causing his altered mentation. On review of his chart. Patient does have his niece Allegra Jackson [phone] as his healthcare proxy. Was noted in previous record by [facility] psych team patient has a [place] of 04/15 She stated that patient does live by himself at an apartment. They are trying to get further assistance by visiting nurses to help him out. Patient is not he does not have any Children. We will plan to hold the patient in the ER here for case management evaluation. PT evaluation has been ordered for the patient. No sign of leukocytosis. INR is normal, lactate level is normal. Chemistries unremarkable. UA did not show leuk esterase or nitrite. He does have small blood in the urine. Differential Diagnosis Differential Diagnoses: The differential diagnosis associated with the presentation includes UTI, sepsis, dehydration, progression of dementia, pneumonia, intracranial mass, intracranial hemorrhage. Admission/Observation Consideration of admission/observation: Escalation of care including admission/observation considered Physician ovservation started at 03/03/2025 1556 pending Case management and PT evaluation Lab Data [facility] Lab Attestation statement: I reviewed the patient's lab results. 03/03/25 13:09 03/03/25 13:09 Labs: Lab Results 03/03/25 03/03/25 03/03/25 Range/Units 13:09 13:16 15:21 WBC 6.0 (4.8-10.8) X10*3/uL RBC 3.61 L (4.60-5.80) X10*6/uL Hgb 10.5 L (14.0-18.0) g/dl Hct 31.5 L (42.0-52.0) % MCV 87.3 (80.0-98.0) fL MCH 29.1 (27.0-33.0) pg MCHC 33.3 (31.0-36.0) g/dl RDW 12.4 (11.0-16.0) % Plt Count 211 (160-400) X10*3/uL MPV 8.4 L (9.4-12.4) fL Immature Gran % (Auto) 0.7 H (0.0-0.4) % Neut % (Auto) 81.6 H (45-73) % Lymph % (Auto) 7.1 L (20-40) % [place] % (Auto) 10.4 (2-11) % Eos % (Auto) 0.2 (0-4) % Baso % (Auto) 0.0 (0-2) % Lymph # (Auto) 0.4 L (1.2-4.9) X10*3/uL [place] # (Auto) 0.6 (0.1-1.2) X10*3/uL Eos # (Auto) 0.0 (0.0-0.4) X10*3/uL Baso # (Auto) 0.0 (0.0-0.2) X10*3/uL Abs Immat Gran (auto) 0.04 H (0.00-0.03) X10*3/uL Absolute Neuts (auto) 4.9 (2.0-8.3) x10*3/uL Absolute Nucleated RBC 0.000 (0.0-0.012) X10*3/uL Nucleated RBC % (auto) 0.0 (0.0-0.2) /100WBC PT 13.0 H (10.9-12.4) SEC INR 1.1 (0.9-1.1) APTT 29.4 (26.7-34.1) SEC VBG pH 7.46 H (7.32-7.43) VBG pCO2 21 mmHg VBG pO2 59 mmHg VBG HCO3 15 L (22-26) mmol/L VBG O2 Saturation 89.0 % VBG Base Excess -6.4 mmol/L Sodium 145 (135-145) mmol/L Potassium 3.4 (3.3-5.1) mmol/L Chloride 109 H (96-108) mmol/L Carbon Dioxide 23 (22-29) mmol/L Anion Gap 16 (12-20) BUN 22 H (9-16) mg/dL Creatinine 1.30 (0.5-1.4) mg/dL Estim Creat Clear Calc 49.2 Estimated GFR 53 Random Glucose 104 (60-115) mg/dL Lactic Acid 1.3 (0.5-2.0) mmol/L Calcium 9.5 (8.4-10.2) mg/dL Total Bilirubin 1.1 H (0.0-1.0) mg/dL Direct Bilirubin 0.4 (0.0-0.5) mg/dL AST 50 H (5-37) U/L ALT 9 (0-40) U/L Alkaline Phosphatase 79 (39-117) U/L Ammonia 26 (13-55) umol/L Total Protein 8.1 H (6.5-8.0) g/dL Albumin 4.5 (3.5-5.0) g/dL TSH 0.53 (0.32-4.0) uIU/mL Urine Color Urine Appearance Urine pH (5.0-9.0) Ur Specific [place] (1.005-1.025) Urine Protein (Neg-Trace) mg/dL Urine Glucose (UA) (Negative) mg/dL Urine Ketones (Negative) mg/dL Urine Blood (Negative) Urine Nitrite (Negative) Ur Leukocyte Esterase (Negative) Urine RBC (0-2) /HPF Urine WBC (0-5) /HPF Ur Squamous Epith Cells (0-2) /HPF Urine Bacteria (None Seen) Hyaline Casts (0-2) /LPF Influenza Type A (PCR) NEGATIVE (Negative) Influenza Type B (PCR) NEGATIVE (Negative) RSV RNA Qual (PCR) NEGATIVE (Negative) SARS-CoV-2 RNA (RT-PCR) NEGATIVE (Negative) 03/03/25 Range/Units 15:23 WBC (4.8-10.8) X10*3/uL RBC (4.60-5.80) X10*6/uL Hgb (14.0-18.0) g/dl Hct (42.0-52.0) % MCV (80.0-98.0) fL MCH (27.0-33.0) pg MCHC (31.0-36.0) g/dl RDW (11.0-16.0) % Plt Count (160-400) X10*3/uL MPV (9.4-12.4) fL Immature Gran % (Auto) (0.0-0.4) % Neut % (Auto) (45-73) % Lymph % (Auto) (20-40) % [place] % (Auto) (2-11) % Eos % (Auto) (0-4) % Baso % (Auto) (0-2) % Lymph # (Auto) (1.2-4.9) X10*3/uL [place] # (Auto) (0.1-1.2) X10*3/uL Eos # (Auto) (0.0-0.4) X10*3/uL Baso # (Auto) (0.0-0.2) X10*3/uL Abs Immat Gran (auto) (0.00-0.03) X10*3/uL Absolute Neuts (auto) (2.0-8.3) x10*3/uL Absolute Nucleated RBC (0.0-0.012) X10*3/uL Nucleated RBC % (auto) (0.0-0.2) /100WBC PT (10.9-12.4) SEC INR (0.9-1.1) APTT (26.7-34.1) SEC VBG pH (7.32-7.43) VBG pCO2 mmHg VBG pO2 mmHg VBG HCO3 (22-26) mmol/L VBG O2 Saturation % VBG Base Excess mmol/L Sodium (135-145) mmol/L Potassium (3.3-5.1) mmol/L Chloride (96-108) mmol/L Carbon Dioxide (22-29) mmol/L Anion Gap (12-20) BUN (9-16) mg/dL Creatinine (0.5-1.4) mg/dL Estim Creat Clear Calc Estimated GFR Random Glucose (60-115) mg/dL Lactic Acid (0.5-2.0) mmol/L Calcium (8.4-10.2) mg/dL Total Bilirubin (0.0-1.0) mg/dL Direct Bilirubin (0.0-0.5) mg/dL AST (5-37) U/L ALT (0-40) U/L Alkaline Phosphatase (39-117) U/L Ammonia (13-55) umol/L Total Protein (6.5-8.0) g/dL Albumin (3.5-5.0) g/dL TSH (0.32-4.0) uIU/mL Urine Color Yellow Urine Appearance Clear Urine pH 6.5 (5.0-9.0) Ur Specific [place] 1.015 (1.005-1.025) Urine Protein Trace (Neg-Trace) mg/dL Urine Glucose (UA) Negative (Negative) mg/dL Urine Ketones 15 (Negative) mg/dL Urine Blood Small (1+) H (Negative) Urine Nitrite Negative (Negative) Ur Leukocyte Esterase Negative (Negative) Urine RBC 0-2 (0-2) /HPF Urine WBC 0-5 (0-5) /HPF Ur Squamous Epith Cells 0-2 (0-2) /HPF Urine Bacteria None Seen (None Seen) Hyaline Casts 0-2 (0-2) /LPF Influenza Type A (PCR) (Negative) Influenza Type B (PCR) (Negative) RSV RNA Qual (PCR) (Negative) SARS-CoV-2 RNA (RT-PCR) (Negative) Independent Interpretation I performed an independent interpretation of an: EKG, Plain X-Ray and CT Scan Radiology Impression Discussion of test interpretation with radiology: I have reviewed the radiologist's reading. Independent Historian Sandy External Record Review External record reviewed: Inpatient record and Outpatient record Discharge Plan Discharge Clinical Impression: Dementia Patient Disposition: Xfer Inpatient Rehab Fac Transfer Details: [facility] Instructions: Dementia (ED) Prescriptions: No Action ketotifen fumarate [Eye Itch Relief] 0.025 % (0.035 %) drops 1 drp ophthalmic (eye) BID amlodipine 2.5 mg tablet 2.5 mg PO DAILY tamsulosin 0.4 mg capsule 0.4 mg PO BEDTIME quetiapine 25 mg Tablet 25 mg PO BEDTIME Qty: 30 0RF donepezil 5 mg Tablet 5 mg PO BEDTIME Qty: 30 0RF lisinopril 40 mg Tablet 40 mg PO DAILY Qty: 30 0RF Protocol: Hold for SBP< HOLD for SBP < : 90 ipratropium bromide 21 mcg (0.03 %) spray,non-aerosol 2 spray intranasal BID Qty: 30 0RF Rx Instructions: administer into each nostril Referrals: [facility] [Outside] Print Language: Iranian
--- NOTE | 2025-03-03 12:51 | ECG_ITS ---
Test Reason : AMS Blood Pressure : */* mmHG Vent. Rate : 101 BPM Atrial Rate : 101 BPM P-R Int : 156 ms QRS Dur : 118 ms QT Int : 404 ms P-R-T Axes : 66 2 -4 degrees QTcB Int : 523 ms Sinus tachycardia Right bundle branch block Abnormal ECG When compared with ECG of 02-Aug-2023 12:40, Premature supraventricular complexes are no longer Present Referred By: Neelam Etienne Electronically Signed By: OSIEL SHEA MD
[2025-03-03] MEDS: Lactated Ringers 1,000 ML 999 ML IV (13:12)
[2025-03-03 13:16] LABS: MANUAL DIFF FLAG NO
[2025-03-03 13:17] LABS: Hematocrit 31.5 % (42.0-52.0); Hemoglobin 10.5 g/dl (14.0-18.0); Imm Gran Abs Auto 0.04 X10*3/uL (0.00-0.03); Imm Gran Pct Auto 0.7 % (0.0-0.4); Lymphocytes Absolute Auto 0.4 X10*3/uL (1.2-4.9); Mean Corpuscular HGB Conc 33.3 g/dl (31.0-36.0); Mean Corpuscular Hemoglobin 29.1 pg (27.0-33.0); Mean Corpuscular Volume 87.3 fL (80.0-98.0); NRBC Abs Auto 0.000 X10*3/uL (0.0-0.012); NRBC Pct Auto 0.0 /100WBC (0.0-0.2); Platelet Count 211 X10*3/uL (160-400); Red Blood Count 3.61 X10*6/uL (4.60-5.80); White Blood Count 6.0 X10*3/uL (4.8-10.8)
[2025-03-03 13:19] LABS: VBG HCO3 15 mmol/L (22-26); VBG O2 % Saturation 89.0 %
[2025-03-03 13:23] LABS: INTERNATIONAL NORM RATIO 1.1 (0.9-1.1); Prothrombin Time 13.0 SEC (10.9-12.4); Venous Blood Gas Refer to POC result
[2025-03-03 13:25] LABS: Ammonia 26 umol/L (13-55)
[2025-03-03 13:26] LABS: Partial Thromboplastin Time 29.4 SEC (26.7-34.1)
[2025-03-03 13:33] LABS: Alanine Aminotransferase 9 U/L (0-40); Albumin Level 4.5 g/dL (3.5-5.0); Alkaline Phosphatase 79 U/L (39-117); Anion Gap 16 (12-20); Aspartate Amino Transferase 50 U/L (5-37); Blood Urea Nitrogen 22 mg/dL (9-16); Calcium 9.5 mg/dL (8.4-10.2); Carbon Dioxide 23 mmol/L (22-29); Chloride 109 mmol/L (96-108); Creatinine Clr Calc Pharmacy 49.2; Estimated Glomerular Filt Rate 53; Potassium 3.4 mmol/L (3.3-5.1); Sodium 145 mmol/L (135-145); Total Protein 8.1 g/dL (6.5-8.0)
--- NOTE | 2025-03-03 14:03 | PC.NURSE ---
JUVENTINO from [employer]. Patient alert to self and situation but seems altered. Patient said he was waiting for his friends by the [employer]. Denies pain, SOB, fever, SI, HI, drug use. Patient poor historian 18G left hand running LR Blood collected/sent Patient hypertensive reports he didnt take BP meds today CXR negative EKG = Sinus tachycardia right bundle branch block Plan of care on going
--- NOTE | 2025-03-03 14:50 | PC.NURSE ---
Patient said he was unable to void Bladder scanned for 215ml Patient able to void approx 100ml clear yellow urine bladder scanned for 115
[2025-03-03 15:34] LABS: Appearance Urine Clear; Glucose Urine UA Negative (Negative); PH 6.5 (5.0-9.0); Specific Gravity - Urine 1.015 (1.005-1.025); UMIC TRIGGER UA YES
[2025-03-03] MEDS: Lactated Ringers 500 ML 999 ML IV (15:46)
[2025-03-03 16:16] LABS: Resp Syncy Virus RNA Qual PCR NEGATIVE (Negative); SARS COV2 PCR INHOUSE NEGATIVE (Negative)
--- NOTE | 2025-03-03 17:30 | PC.NURSE ---
Late entry: Vitals signs added to chart @ 1639 and 1653 to complete sepsis protocol
--- NOTE | 2025-03-03 21:41 | MHC.CM.ED ---
CM met with patient. Pt is alert to self only. He does not know why or where he is. He could tell me his PCP is Dr. Fitzpatrick. He tells me his sister Michelle . She was listed as a contact. He lives alone. He does tell CM that his niece helps with his medicines and he uses a walker. [place]. CM called and spoke with Allegra Jackson ([phone]). She tells CM that he uncle does live alone, but does not usually wander He lives in senior housing. He uses a rollator and has MOW. She shops, brings him to medical appointments and pays his bills. His PCP is Dr. Dianne Fitzpatrick at [facility]. She tells CM that she and her sister are working with [employer] to complete MH standard application. I do not believe it has been submitted. Allegra tells CM she will speak with her sister about this. MAAME did explain that a referral could be placed with [facility] financial services for MH assistance if needed. She is agreeable to PT and possible STR. Local referrals will be placed. Patient may need LTC. Pt was admitted to [facility] 08/02-08/18/23 due to psychosis. At that time [place] was 04/15 and ACL was 3.4. Severe cognitive impairment. Was diagnosed with LBD with mixed vascular dementia. Was d/c home at that time with medication changes and daily family visits. PT is pending. Will place local referrals. Pt Has [employer] Medicare. CM will follow.
--- NOTE | 2025-03-03 23:10 | PC.NURSE ---
Pt is sundining, having shouting outburst, yelling saying that he has to leave and is going to go to [facility]. Requires multiple redirection. MD made aware and new order placed in MAR. Pt refusing to take PO med. After 15-20 min of observation pt noted to calm down and is resting at the bedside. Monitoring is ongoing.
[2025-03-04] VITALS (8 sets, daily range): BP systolic 137–207; BP diastolic 71–92; PULSE 82–98; RESP 14–18; TEMP 36.7–37; O2SAT 94–100
--- NOTE | 2025-03-04 04:42 | PC.NURSE ---
Med req completed
--- NOTE | 2025-03-04 05:09 | PC.NURSE ---
made aware of pts elevated BP. Pts was given his regular dose of Amlodipine on 03/03/[address] Ramirez pt is to be allowed to rest as pt has been agitated and confused several times throughout the night. BP to be re checked in the morning when pt is awake and not agitated. Last BP was taken while pt was agitated. Morning team to order pts home meds moving forward.
--- NOTE | 2025-03-04 05:13 | PC.NURSE ---
pt was brought over from [id number] via stretcher. lunchroom supervisor aware there is no hospital bed in overflow 4 and none available in the hospital at this time. pt remains in stretcher in overflow 4, currently sleeping resp even and unlabored. report received from Lora MAGAÑA in ED, states will make MD aware of BP that was obtained prior to transport. plan of care ongoing.
--- NOTE | 2025-03-04 08:13 | PC.NURSE ---
Pt up oob to commode two assist, steady gait with pivot to commode. Pt placed back into bed, sitting upright eating breakfast tray. Calm/cooperative with staff. Call weir within reach, all needs met at this time.
--- NOTE | 2025-03-04 08:51 | PC.NURSE ---
Repeat BP taken- 151/71. Pt calm/cooperative, eating breakfast. Physical therapy at bedside for eval with patient. This RN spoke with pt niece on phone, given update on plan of care.
--- NOTE | 2025-03-04 10:01 | PHA.MEDREC ---
Addendum entered by Hemant Daly RPh 03/04/25 11:08: MED REC WAS REVIEWED BY [facility]. Trazodone was removed due to the direction of quetiapine 25 mg at bedtime says replaces trazodone . Original Note: Pharmacy Consult ? Medication Reconciliation Pharmacy has reviewed the medication reconciliation done by nursing. Claims match med list.
--- NOTE | 2025-03-04 12:01 | PC.NURSE ---
Pt family Cindy called requesting updates and to speak with case management. Family updated on pt's current status, CM aware and will be reaching back out to family shortly.
--- NOTE | 2025-03-04 13:10 | MHC.CM.ED ---
Patient remains in ER overflow. Physical therapy eval completed. Home with services is recomended. Attempted to speak with patient's niece, Allegra, via telephone at [phone]. Left voicemail requesting return telephone call. Spoke with patient's other niece, Cindy, via telephone at [phone]. Cindy is trying to get adult foster care for patient. Cindy's daughter will be able to take care of patient. Cindy is aware this will take some time. [facility]NA for physical therapy will be arrnaged. Family is looking to get more care at home. Anticipate patient will d/c home tomorrow 03/05 at 530pm. Allegra will transport patient home. Continue to monitor for d/c needs.
--- NOTE | 2025-03-04 14:35 | PC.NURSE ---
Pharmacy contacted for amlodipine dose, awaiting arrival of medication.
--- NOTE | 2025-03-04 15:42 | PC.NURSE ---
Pharmacy contacted again for amlodipine dose, awaiting medication arrival.
[2025-03-04] MEDS: Ipratropium Bromide Nas 0.03 % 30 ML SPRAY 2 SPRAY NOSTRIL-B (21:13)
[2025-03-04] MEDS: Ketotifen Fumarate 0.025% Oph 5 ML DRPBTL 1 DROP EYE-BOTH (21:13)
--- NOTE | 2025-03-04 22:51 | PC.NURSE ---
Pt's niece Cindy called in requesting a callback from case management in the morning regarding his discharge. Cindy states that she is very concerned about him receiving only a weekly visit, and is not having any luck finding adult foster care at this time. She states that the patient has been losing things at home, including jewelry and money, and is worried about him wandering again. CM aware.
--- NOTE | 2025-03-04 23:48 | PC.NURSE ---
Addendum entered by Sherrell Teixeira RN 03/05/25 02:59: pts alarm went off, noted pt to be out of bed trying to get out of room stating he wanted to leave his apartment, made several attempts to redirect pt and orient pt to surroundings. Offered pt food/drinks and if he needed any assistance with toileting, pt refused and asked me to leave his apartment. Security called and was able to escort pt back into bed. Pt continuing to screaming for help and to call the police. Md notified pending new orders. Original Note: assumed care for pt at 2300. pt noted to be walking out of room, able to redirect pt into room. Changed pts bed sheets applied new sebastian pad to bed. Assisted pt back into bed, gave a warm blanket and placed call weir within reach. Updated pt on plan of care. Pt now sleeping in the bed, symmetrical rise and fall of chest and unlabored respirations noted. plan of care ongoing
[2025-03-05 03:00] VITALS: BP 144/58; PULSE 80; RESP 16; TEMP 36.8; O2SAT 98
--- NOTE | 2025-03-05 07:53 | PC.NURSE ---
Patient is a a 85-year-old male history of hypertension, cognitive disorder for evaluation of altered mentation. [place] Patient stated that he was [place] the [place] meet up with his friends. He states that he does live in an apartment and family does check up on him. Patient evaluated by psychiatry in 09/09 for dementia, psychotic and mood disturbance and anxiety. Had one episode of confusion last night requiring medication in which he believed he was in his department. Respirations even and non-labored. Abdomen soft, non-tender with positive bowel sounds. Uses the urinal. positive pedal pulses with no edema noted. Pending psych consult.
[2025-03-05] MEDS: Ketotifen Fumarate 0.025% Oph 5 ML DRPBTL 1 DROP EYE-BOTH ×2 (08:49→20:42)
[2025-03-05] MEDS: Ipratropium Bromide Nas 0.03 % 30 ML SPRAY 2 SPRAY NOSTRIL-B ×2 (08:49→20:42)
--- NOTE | 2025-03-05 09:26 | MHC.CM.ED ---
Patient remains in ER overflow. Reached out to Cindy braswell, via telephone at [phone] about concerns of patient being d/c'd home. Information on [facility] by the [facility]'s office provided. Cindy will reach out to them. Continue to monitor for d/c needs.
--- NOTE | 2025-03-05 12:35 | PC.NURSE ---
Attempted to ambulate patient to the bathroom and he struggled stating he was too weak and required a W/C back to his room. Patient also struggled to take his medication appearing to have difficulty processing medication administration. CM notified and will have PT re-evaluate.
--- NOTE | 2025-03-05 12:36 | MHC.CM.ED ---
Received notification from Álvaro MAGAÑA that patient is having difficulty ambulating. Repeat PT eval ordered for home safety. Continue to monitor for d/c needs.
--- NOTE | 2025-03-05 13:45 | PC.NURSE ---
PT at the bedside to re-eval
[2025-03-05 14:00] VITALS: BP 118/57; PULSE 83; RESP 16; TEMP 36.8; O2SAT 98
--- NOTE | 2025-03-05 14:31 | MHC.CM.ED ---
Updated PT eval completed. Short term rehab is now recommended. Spoke with patient's niece/HCP Allegra, via telephone at [phone]. Allegra agreeable to referral being broadcasted locally for bed availability. Bed offers will be discussed with Allegra. Continue to monitor for d/c needs.
--- NOTE | 2025-03-05 15:24 | MHC.CM.ED ---
[facility] is able to offer a bed. [facility] is still reviewing. Spoke with patient's niece/HCP, Allegra. Accepts bed at [facility]. [facility] has been asked to go for ins auth. Continue to monitor for d/c needs.
[2025-03-05 20:39] VITALS: BP 167/83; PULSE 76; RESP 16; TEMP 36.8; O2SAT 98
[2025-03-06 06:49] VITALS: BP 154/77; PULSE 69; RESP 16; TEMP 36.7; O2SAT 97
--- NOTE | 2025-03-06 07:37 | PC.NURSE ---
Patient is a a 85-year-old male history of hypertension, cognitive disorder for evaluation of altered mentation. [place] [employer] [place] Patient stated that he was [place] the [place] to meet up with his friends. He states that he does live in an apartment and family does check up on him. Patient evaluated by psychiatry in 09/09 for dementia, psychotic and mood disturbance and anxiety. Respirations even and non-labored. Abdomen soft, non-tender with positive bowel sounds. Uses the urinal. positive pedal pulses with no edema noted. Yesterday patient noted to extremely weak and unable to ambulate to the bathroom requiring a W/C. Patient also struggled to process taking his daily medications yesterday. Plan for STR [facility].
[2025-03-06] MEDS: Ipratropium Bromide Nas 0.03 % 30 ML SPRAY 2 SPRAY NOSTRIL-B ×2 (08:21→21:03)
[2025-03-06] MEDS: Ketotifen Fumarate 0.025% Oph 5 ML DRPBTL 1 DROP EYE-BOTH ×2 (08:21→21:03)
--- NOTE | 2025-03-06 10:49 | MHC.CM.ED ---
Addendum entered by Millicent Hooker 03/06/25 11:23: Carissa at [facility] is able to offer a bed. Allegra accepts. Facility has been asked to obtain ins auth. Original Note: Patient remains in ER overflow. [facility] no longer has a bed. [facility] available at this time. Referral broadcasted within 50 miles of patient's home to all facilities that are contracted with patient's insurance. Allegra, michaelle/HCP aware. Continue to monitor for d/c needs.
--- NOTE | 2025-03-06 12:06 | PC.NURSE ---
Patient able to ambulate much better today with one person assist.
[2025-03-06 14:00] VITALS: BP 167/73; PULSE 77; RESP 16; TEMP 36.9; O2SAT 97
--- NOTE | 2025-03-06 16:11 | MHC.CM.ED ---
Insurance auth obtained by Carissa at [facility]. Patient can leave tomorrow 03/07 at 9am. [facility] booked. Med nec with chart. Patient, niece/HCP Lupis Dinh RN and Martínez MATUTE aware. Continue to monitor for d/c needs.
--- NOTE | 2025-03-06 17:48 | MHC.CM.ED ---
CM met with patient to discuss discharge planning. Pt is very confused. States he is embarrassed to be here. Pt does not know where he is. Pt telling CM a long story about people driving him around. CM did tell patient that he was going to [facility] tomorrow, 03/07 at 9am.He is aware that his niece, Allegra is aware.
[2025-03-06 20:15] VITALS: BP 163/72; PULSE 78; RESP 18; TEMP 37; O2SAT 100
[2025-03-07 05:35] VITALS: BP 170/88; PULSE 89; RESP 18; TEMP 36.6; O2SAT 97
--- NOTE | 2025-03-07 06:28 | PC.NURSE ---
pt family member/[facility] sitter visiting at bedside. pt continues with delusions about needing to get up and go somewhere. family member reassuring patient more effectively. remaining in bed at this time. chair alarm attached to patient
--- NOTE | 2025-03-07 07:28 | PC.NURSE ---
Patient is a a 85-year-old male history of hypertension, cognitive disorder for evaluation of altered mentation. [place] [employer] [place]. Patient stated that he was [place] the [place] to meet up with his friends. He states that he does live in an apartment and family does check up on him. Patient evaluated by psychiatry in 09/09 for dementia, psychotic and mood disturbance and anxiety. Respirations even and non-labored. Abdomen soft, non-tender with positive bowel sounds. Uses the urinal. positive pedal pulses with no edema noted. Yesterday patients ambulation improved and although got oob without ringing was able to ambulate to the bathroom with minimal assist. Toward the evening, patients mentation started to waver and patient became more confused with some hallucinations noted. Was not able to verbalize where he was and was looking for his friends. Patient placed in an in-patient bed and bed alarm set for patients safety.
[2025-03-07] MEDS: Ipratropium Bromide Nas 0.03 % 30 ML SPRAY 2 SPRAY NOSTRIL-B (08:24)
[2025-03-07] MEDS: Ketotifen Fumarate 0.025% Oph 5 ML DRPBTL 1 DROP EYE-BOTH (08:24)
--- NOTE | 2025-03-07 08:53 | PC.NURSE ---
Report given to Kathryn MAGAÑA at [facility]. Will transition via EMS
[2025-03-07 08:56] VITALS: BP 170/88; PULSE 89; RESP 18; TEMP 36.6; O2SAT 97
== END 2025-03-07 09:06 ==
PROVIDERS: Student in an Organized Health Care Education/Training Program; Emergency Provider Emergency Medicine
DX: G93.40 Encephalopathy, unspecified (principal); R41.82 Altered mental status, unspecified; F03.90 Unspecified dementia, unspecified severity, without behavioral disturbance, psychotic disturbance, mood disturbance, and anxiety; R00.0 Tachycardia, unspecified; R26.81 Unsteadiness on feet; Z79.899 Other long term (current) drug therapy; Z51.81 Encounter for therapeutic drug level monitoring; Z03.818 Encounter for observation for suspected exposure to other biological agents ruled out
CPT/HCPCS: 36415; 70450; 71045; 80048; 80076; 81001; 82140; 82803; 83605; 84443; 85025; 85610; 85730; 87040; 87637; 93005; 96361; 96374; 96375; 96376; 97116; 97161; 97530; 99285; J0696; J1790; J7120

== ENCOUNTER → 2025-03-03 12:45 | Outpatient (BNV) | payer MEDICARE, SELFPAY | PROVIDERS: Emergency Provider Student in an Organized Health Care Education/Training Program; Visit Provider Radiology Diagnostic Radiology | DX: R41.82 Altered mental status, unspecified (principal); J18.9 Pneumonia, unspecified organism | CPT/HCPCS: 70450; 71045 ==

== ENCOUNTER → 2025-03-03 12:51 | Outpatient (BNV) | payer MEDICARE, SELFPAY | PROVIDERS: Emergency Provider Student in an Organized Health Care Education/Training Program; Visit Provider Internal Medicine Cardiovascular Disease | DX: I45.10 Unspecified right bundle-branch block (principal); R00.0 Tachycardia, unspecified | CPT/HCPCS: 93010 ==

== ENCOUNTER → 2025-06-16 05:07 | Outpatient (BNV) | payer MEDICARE, MEDICAID, SELFPAY | PROVIDERS: Emergency Provider Emergency Medicine Emergency Medical Services; PCP Family Medicine; Visit Provider Social Worker | DX: F03.90 Unspecified dementia, unspecified severity, without behavioral disturbance, psychotic disturbance, mood disturbance, and anxiety (principal) | CPT/HCPCS: 99223 ==

== ENCOUNTER → 2025-06-25 09:36 | Outpatient (BNV) | payer MEDICARE, MEDICAID, SELFPAY | PROVIDERS: Emergency Provider Emergency Medicine Emergency Medical Services; PCP Family Medicine; Visit Provider Radiology Diagnostic Radiology | DX: R41.82 Altered mental status, unspecified (principal); J98.4 Other disorders of lung | CPT/HCPCS: 70450; 71045 ==

== ENCOUNTER → 2025-06-25 09:37 | Outpatient (BNV) | payer MEDICARE, MEDICAID, SELFPAY | PROVIDERS: Emergency Provider Emergency Medicine Emergency Medical Services; PCP Family Medicine; Visit Provider Internal Medicine Cardiovascular Disease | DX: I45.10 Unspecified right bundle-branch block (principal) | CPT/HCPCS: 93010 ==

== ENCOUNTER 2025-06-27 14:55 | Outpatient (BNV) | payer MEDICARE, MEDICAID, SELFPAY | END 2025-07-01 21:09 | PROVIDERS: Admitting Provider Physician Assistant Medical; Emergency Provider Emergency Medicine; PCP Family Medicine; Visit Provider Student in an Organized Health Care Education/Training Program | DX: R41.82 Altered mental status, unspecified (principal); I66.22 Occlusion and stenosis of left posterior cerebral artery | CPT/HCPCS: 70496; 70498 ==

== ENCOUNTER 2025-06-27 14:55 | Outpatient (BNV) | payer MEDICARE, MEDICAID, SELFPAY | END 2025-07-01 20:56 | PROVIDERS: Admitting Provider Physician Assistant Medical; Emergency Provider Emergency Medicine; PCP Family Medicine; Visit Provider Internal Medicine Cardiovascular Disease | DX: I21.19 ST elevation (STEMI) myocardial infarction involving other coronary artery of inferior wall (principal) | CPT/HCPCS: 93010 ==

== ENCOUNTER 2025-06-27 14:55 | Outpatient (BNV) | payer MEDICARE, MEDICAID, SELFPAY | END 2025-07-03 07:00 | PROVIDERS: Admitting Provider Physician Assistant Medical; Emergency Provider Emergency Medicine; PCP Family Medicine; Visit Provider Radiology Diagnostic Radiology | DX: I10 Essential (primary) hypertension (principal) | CPT/HCPCS: 76775; 93975 ==

== ENCOUNTER 2025-06-27 14:55 | Outpatient (BNV) | payer MEDICARE, MEDICAID, SELFPAY | END 2025-06-27 23:31 | PROVIDERS: Admitting Provider Physician Assistant Medical; Emergency Provider Emergency Medicine; PCP Family Medicine; Visit Provider Internal Medicine Cardiovascular Disease | DX: I45.10 Unspecified right bundle-branch block (principal) | CPT/HCPCS: 93010 ==

== ENCOUNTER 2025-06-27 14:55 | Outpatient (BNV) | payer MEDICARE, MEDICAID, SELFPAY | END 2025-07-02 08:30 | PROVIDERS: Admitting Provider Physician Assistant Medical; Emergency Provider Emergency Medicine; PCP Family Medicine; Visit Provider Psychiatry & Neurology Neurology | DX: R41.82 Altered mental status, unspecified (principal) | CPT/HCPCS: 95816 ==

== ENCOUNTER → 2025-06-27 14:55 | Outpatient (BNV) | payer MEDICARE, MEDICAID, SELFPAY | PROVIDERS: Admitting Provider Physician Assistant Medical; Emergency Provider Emergency Medicine; PCP Family Medicine; Visit Provider Psychiatry & Neurology Neurology | DX: F03.90 Unspecified dementia, unspecified severity, without behavioral disturbance, psychotic disturbance, mood disturbance, and anxiety (principal) | CPT/HCPCS: 99222 ==

== ENCOUNTER → 2025-06-27 14:55 | Outpatient (BNV) | payer MEDICARE, MEDICAID, SELFPAY | PROVIDERS: Admitting Provider Physician Assistant Medical; Emergency Provider Emergency Medicine; PCP Family Medicine; Visit Provider Physician Assistant | DX: F03.90 Unspecified dementia, unspecified severity, without behavioral disturbance, psychotic disturbance, mood disturbance, and anxiety (principal) | CPT/HCPCS: 99231 ==